=== PATIENT | male | born 1940 | race Caucasian/White ===

== ENCOUNTER 2018-04-10 12:22 | Inpatient (IN) ==
[2018-04-10] MEDS ORDERED: Acetaminophen 325 MG Tablet PO PRN (20:56)
[2018-04-10] MEDS ORDERED: Bisacodyl 10 MG Supp RECTAL PRN (20:56)
[2018-04-10] MEDS ORDERED: Enoxaparin Inj 30 MG/0.3 ML Syringe SQ SCH (21:00)
[2018-04-10] MEDS ORDERED: Vancomycin Consult Pharmacy OTHER PRN (21:02)
[2018-04-10] MEDS ORDERED: Dextrose 50% in Water 50 ML Vial IV.PUSH PRN (21:52)
[2018-04-10] MEDS ORDERED: Carvedilol 12.5 MG Tablet PO ONE (22:21)
[2018-04-10] MEDS: Piperacil/Tazo 3.375 GM Premix 50 ML IV.SIG SCH (23:10)
[2018-04-11] MEDS: Piperacil/Tazo 3.375 GM Premix 50 ML IV.SIG SCH ×3 (05:29→17:06)
[2018-04-11 07:37] LABS: Chloride 104 meq/L (98-107); Potassium 4.3 meq/L (3.5-5.1); Sodium 138 meq/L (136-145)
[2018-04-11 07:40] LABS: Calcium 8.8 mg/dL (8.5-10.1)
[2018-04-11 07:41] LABS: Albumin 3.1 g/dL (3.4-5.0); Anion Gap 8 meq/L (5-15); Blood Urea Nitrogen 20 mg/dL (7-18); Carbon Dioxide 26.1 meq/L (21.0-32.0); Glucose,Random 150 mg/dL (74-106)
[2018-04-11 07:44] LABS: Alanine Aminotransferase 23 U/L (12-78); Aspartate Aminotransferase 16 U/L (15-37); Glomerular Filtration Rate 73 mL/min (>89)
[2018-04-11 07:45] LABS: Total Protein 7.5 g/dL (6.4-8.2)
[2018-04-11 07:46] LABS: Baso % (Auto) 0.3 % (0.0-2.0); Eos # (Auto) 0.4 th/mm3 (0.0-0.4); Eos % (Auto) 5.5 % (0.0-4.0); Hematocrit 32.5 % (39.0-51.0); Hemoglobin 11.2 gm/dL (13.0-17.0); Lymph # (Auto) 1.4 th/mm3 (1.0-4.8); Lymph % (Auto) 21.8 % (9.0-44.0); Mean Corpuscular HGB Conc 34.5 % (32.0-36.0); Mean Corpuscular Hemoglobin 29.4 pg (27.0-34.0); Mean Corpuscular Volume 85.3 fL (80.0-100.0); Mean Platelet Volume 8.3 fL (7.0-11.0); Mono # (Auto) 0.6 th/mm3 (0.0-0.9); Mono % (Auto) 8.7 % (0.0-8.0); Neut # (Auto) 4.1 th/mm3 (1.8-7.7); Neut % (Auto) 63.7 % (16.0-70.0); Platelet Count 307 th/mm3 (150-450); Red Blood Count 3.81 mil/mm3 (4.50-5.90); Red Cell Distribution Width 13.7 % (11.6-17.2); White Blood Count 6.5 th/mm3 (4.0-11.0)
[2018-04-11 07:47] LABS: Alkaline Phosphatase 93 U/L (45-117)
[2018-04-11 07:52] LABS: INR 1.1 Ratio; Prothrombin Time 10.7 sec (9.8-11.6)
[2018-04-11] MEDS: Insulin NovoLOG Aspart Correctional Sugar Inj SQ SCH ×3 (08:14→17:03)
--- NOTE | 2018-04-11 08:16 | P.HP ---
History of Present Illness Primary Care Physician: Olayinka Perdomo MD Chief Complaint: Left foot edema History of Present Illness: 77-year-old male with known history of hypertension, hyper lipidemia, coronary disease, diabetes who presented the hospital for evaluation of left foot edema. Patient states that over the last few weeks he has had increased edema noted in the left lower extremity. He went to his prior medical doctor's office proxy 3 days ago and was started on oral antibiotics. Patient states that there might have been some mild improvement but it did not get any better so he went back to his primary medical doctor's office who referred him to the emergency department. Patient had workup done emergency department with laboratory studies which did not indicate any leukocytosis, however patient did have lactic acid elevation, C-reactive protein elevation. Because the patient had been started on outpatient oral antibiotics and his foot did not improve ER doctor recommended the patient be admitted for failed outpatient treatment. Patient denies any fever, chills, abdominal pain, nausea, vomiting, chest pain - Diagnosis (1) Cellulitis of left foot Inpatient Certification: I certify that the inpatient services were ordered in accordance with Medicare regulations governing the order. This includes certification that hospital inpatient services are reasonable and necessary and in the case of services not specified as inpatient-only under 42 CFR 419.22(n), that they are appropriately provided as inpatient services in accordance to with the 2-midnight benchmark under 43 CFR 412.3(e) Estimated Total Length of Stay (Days): 2 Plans for Post Hospital Care: Home Review of Systems All other systems reviewed negative except as stated in HPI Skin/Breast: Reports change in skin color, Reports redness PMFSH - History History Provided By: Patient - Medical History Medical History: Medical History (Last Reviewed 04/11/18 @ 08:33 by DADA Roa) CAD (coronary artery disease) Diabetes HTN (hypertension) High cholesterol - Surgical History Surgical History: Surgical History (Last Reviewed 04/11/18 @ 08:33 by DADA Roa) History of knee surgery Hx of CABG Hx of bariatric surgery - Family History Family History: Family History (Last Updated 04/11/18 @ 07:56 by DADA Roa) Mother History of diabetes mellitus - Tobacco History Second Hand Smoke Exposure: No Smoking Status: Former smoker - Alcohol History How Often Do You Have a Drink Containing Alcohol: Never - Substance Use History Substance History: No History of Abuse Medications and Allergies Active Medications: Active Medications Acetaminophen (Tylenol) 650 mg PO Q4H PRN PRN Reason: Temp > 100.4 Bisacodyl (Dulcolax Supp) 10 mg RECTAL DAILY PRN PRN Reason: SEVERE CONSITIPATION Dextrose (D50w Vial) 50 ml IV.PUSH UNSCH PRN PRN Reason: PER HYPOGLYCEMIA PROTOCOL Enoxaparin Sodium (Lovenox Inj) 30 mg SQ Q24H [facility] Last Admin: 04/10/18 23:10 Dose: 30 mg Glucagon (Glucagon Inj) 1 mg OTHER PRN PRN PRN Reason: for Hypoglycemia Protocol Piperacillin/Tazobactam/Dextrose (Zosyn 3.375 Gm Premix) 50 mls @ 100 mls/hr IV.SIG Q6H [facility] Last Infusion: 04/11/18 06:15 Dose: Infused Vancomycin HCl 1,250 mg/ (Sodium Chloride) 262.5 mls @ 262.5 mls/hr IV.SIG Q18H [facility] Insulin Aspart (Novolog Insulin Correctional Sugar Inj) 0 unit SQ ACHS [facility]; Protocol Last Admin: 04/11/18 08:14 Dose: 1 unit Miscellaneous Information ([facility] Ordered Lab Info) 0 each OTHER ONCE ONE Stop: 04/12/18 23:46 Ondansetron HCl (Zofran Inj) 4 mg IV.PUSH Q6H PRN PRN Reason: NAUSEA OR VOMITING Pharmacy Profile Note (Vancomycin Consult Pharmacy) 1 each OTHER UNSCH PRN PRN Reason: Pharmacy to dose Sennosides (Senokot) 17.2 mg PO Q12H PRN PRN Reason: Moderate Constipation Allergies Allergy/AdvReac Type Severity Reaction Status Date / Time No Known Allergies Allergy Unverified 04/10/18 12:44 Home Medications Medication Instructions Recorded Confirmed Type amitriptyline 150 mg PO DAILY 04/10/18 04/11/18 History carvedilol [Coreg] 12.5 mg PO BID 04/10/18 04/11/18 History cephalexin [Keflex] 500 mg PO BID 04/10/18 04/10/18 History doxycycline hyclate 100 mg PO BID 04/10/18 04/10/18 History ferrous sulfate 325 mg PO DAILY 04/10/18 04/11/18 History gabapentin 800 mg PO TID 04/10/18 04/11/18 History glipizide 10 mg PO BID 04/10/18 04/11/18 History lisinopril 10 mg PO BID 04/10/18 04/11/18 History metformin 1,000 mg PO BID 04/10/18 04/11/18 History metformin 500 mg PO AC LUNCH 04/10/18 04/11/18 History Exam Vital signs: Vital Signs 04/11/18 00:00 04/11/18 07:45 Temperature 97.6 F 97.4 F L Pulse Rate 65 67 Respiratory Rate 18 20 Blood Pressure 193/94 H 158/77 H Pulse Oximetry 96 95 Intake & Output 04/10/18 04/11/18 04/11/18 18:59 06:59 18:59 Intake Total 100 / 100 Balance 100 / 100 Weight 87.4 kg Intake: IV 100 / 100 Zosyn 3.375 GM Premix 50 ML @ 100 / 100 100 mls/hr IV.SIG Q6H [facility] Rx#: [id number] Other: # Voids 3 Weight On Admission 87.4 kg Narrative: GENERAL: Well-developed, well-nourished, in no acute distress. alert and orientated HEENT: Head is normocephalic without any lesions or masses noted. Facial features are symmetric. Eyes: Pupils equal round reactive to light. Extraocular muscles are intact. Conjunctivae were clear. Oropharyngeal: Pharynx without any erythema edema. Tongue is midline without deviation. Buccal mucosa is moist without any masses or lesions NECK: Supple without any masses. Trachea midline no deviation. No JVD, no bruits are appreciated CARDIAC: Regular rhythm, regular rate. S1/S2 are heard. 3/6 ejection murmur noted in the mitral area. No gallops or rubs. LUNGS: Clear to auscultation bilaterally. No wheeze, rhonchi or rales. No use of accessory muscles on inspiration or expiration. ABDOMEN: Soft, nontender. Nondistended. Bowel sounds heard in all 4 quadrants. No organomegaly or masses. Negative rebound, negative guarding EXTREMITIES: No edema, pulses are equal bilaterally. No cyanosis or clubbing NEUROLOGY: Mood and affect appear appropriate. Cranial nerves II through XII grossly intact. Muscle strength 5/5 in upper and lower extremities bilaterally. Deep tendon reflexes are 2+ in upper and lower extremities bilaterally. LEFT FOOT: Patient does have edema noted to the left foot. There is mild erythema noted from the ankle down. The left great toe does have obvious deformity of the nail with increased erythema noted around the great toe. There is no fluctuance noted. No signs of any weeping wounds. Results - Labs CBC & Chem 7: 04/11/18 07:00 04/11/18 07:00 Labs: Laboratory Results - last 24 hr 04/11/18 04/11/18 04/11/18 07:00 07:00 07:00 CBC w Diff Auto diff final WBC 6.5 RBC 3.81 L Hgb 11.2 L Hct 32.5 L MCV 85.3 MCH 29.4 MCHC 34.5 RDW 13.7 Plt Count 307 MPV 8.3 Neut % (Auto) 63.7 Lymph % (Auto) 21.8 [place] % (Auto) 8.7 H Eos % (Auto) 5.5 H Baso % (Auto) 0.3 Neut # (Auto) 4.1 Lymph # (Auto) 1.4 [place] # (Auto) 0.6 Eos # (Auto) 0.4 Baso # (Auto) 0.0 WBC Differential . Differential Comment . PT 10.7 INR 1.1 Sodium 138 Potassium 4.3 Chloride 104 Carbon Dioxide 26.1 Anion Gap 8 BUN 20 H Creatinine 1.00 Estimated GFR 73 L Random Glucose 150 H Calcium 8.8 Total Bilirubin 0.4 AST 16 ALT 23 Alkaline Phosphatase 93 Total Protein 7.5 Albumin 3.1 L Caprini VTE Risk Assessment Caprini VTE Risk Assessment: Moderate/High Risk (score >= 2) Caprini Risk Assessment Model: Point Value = 1 Point Value = 2 Point Value = 3 Point Value = 5 Age 41-60 Minor surgery BMI > 25 kg/m2 Swollen legs Varicose veins or History of unexplained or recurrent spontaneous Oral contraceptives or hormone replacement Sepsis (< 1 month) Serious lung disease, including pneumonia (< 1 month) Abnormal pulmonary function Acute myocardial infarction Congestive heart failure (< 1 month) History of inflammatory bowel disease Medical patient at bed rest Age 61-74 Arthroscopic surgery Major open surgery (> 45 min) Laparoscopic surgery (> 45 min) Malignancy Confined to bed (> 72 hours) Immobilizing plaster cast Central venous access Age >= 75 History of VTE Family history of VTE Factor V Leiden Prothrombin [id number] Lupus anticoagulant Anticardiolipin antibodies Elevated serum homocysteine Heparin-induced thrombocytopenia Other congenital or acquired thrombophilia Stroke (< 1 month) Elective arthroplasty Hip, pelvis, or leg fracture Acute spinal cord injury (< 1 month) Prophylaxis Regimen: Total Risk Factor Score Risk Level Prophylaxis Regimen 0-1 Low Early ambulation 2 Moderate Order ONE of the following: *Sequential Compression Device (SCD) *Heparin 5000 units SQ BID 3-4 Higher Order ONE of the following medications: *Heparin 5000 units SQ TID *Enoxaparin/Lovenox 40 mg SQ daily (WT < 150 kg, CrCl > 30 mL/min) *Enoxaparin/Lovenox 30 mg SQ daily (WT < 150 kg, CrCl > 10-29 mL/min) *Enoxaparin/Lovenox 30 mg SQ BID (WT < 150 kg, CrCl > 30 mL/min) AND/OR *Sequential Compression Device (SCD) 5 or more Highest Order ONE of the following medications: *Heparin 5000 units SQ TID (Preferred with Epidurals) *Enoxaparin/Lovenox 40 mg SQ daily (WT < 150 kg, CrCl > 30 mL/min) *Enoxaparin/Lovenox 30 mg SQ daily (WT < 150 kg, CrCl > 10-29 mL/min) *Enoxaparin/Lovenox 30 mg SQ BID (WT < 150 kg, CrCl > 30 mL/min) AND *Sequential Compression Device (SCD) Assessment and Plan - Assessment (1) Cellulitis of left foot Code(s): L03.116 - Cellulitis of left lower limb Status: Acute - Plan Left foot cellulitis -Patient failed outpatient management with oral antibiotics -Lower extremity venous Doppler did not indicate any embolic event -X-ray of the foot indicated probable early hypertrophic foot with peripheral vascular calcification -Elevated C-reactive protein, sed rate was normal -MRI of the left foot did not indicate any osteomyelitis or infection. Did indicate Charcot's foot as well as dislocation -Podiatry evaluated the patient and recommending nonweightbearing for at least 3 months. Indicated the patient should have a fracture boot, physical therapy evaluation, outpatient follow-up. -Case management consulted to arrange for walker, wheelchair, fracture boot prior to discharge Diabetes -Diabetic diet -Accu-Cheks with sliding scale insulin Hypertension, hyper lipidemia, coronary disease -Continue home medications DVT prevention -Subcutaneous Lovenox Discharge Planning: Discharge home in stable condition Activity: Ad charlene. Diet: Diabetic diet Medication per medication reconciliation Follow-up with primary medical doctor in 1 week
[2018-04-11] MEDS ORDERED: Ferrous Sulfate 325 MG Tablet PO SCH (10:00)
[2018-04-11] MEDS ORDERED: Lisinopril 10 MG Tablet PO SCH (10:00)
[2018-04-11] MEDS ORDERED: Carvedilol 12.5 MG Tablet PO SCH (10:00)
[2018-04-11] MEDS ORDERED: Gadobutrol PF 10 MMOL/10 ML Vial (for RAD) IV.SIG ONE (10:46)
--- NOTE | 2018-04-11 11:26 | MR ---
EXAM DATE: 04/11/2018 11:11 AM EDT AGE/SEX: 77 years / Male INDICATIONS: Osteomyelitis. Pain and swelling of left anterior mid foot. No specific wound or inj ury. CLINICAL DATA: This is the patient's initial encounter. Patient reports that signs and symptoms have been present for 1 day and indicates a pain score of 0/10. MEDICAL/SURGICAL HISTORY: Hypertension. Diabetes mellitus type II. CABG. Gastric bypass. COMPARISON: No prior exams available for comparison. TECHNIQUE: Multiplanar, multisequence MRI examination was performed without contrast and after th e intravenous administration of 9 ml Gadavist (gadobutrol) single exam dose. FINDINGS: Bones: There is very impressive bony edema throughout the midfoot particularly in the cuboid bone and the cuneiform bones. There is been a dislocation involving the articulation of the medial cuneiform and the navicular bone and both the second and third cuneiform bones are inferiorly displaced compare d to the metatarsal bases. The joint space between the medial and intermediate cuneiform bones are ir regular. Joint Spaces: Marked disruption throughout the Lisfranc joints Tendons: The flexor tendons are intact. Soft Tissues: Diffuse soft tissue edema. Other: The plantar fascia is intact. There are some areas of nonenhancement within the plantar muscul ature Post Contrast: There is marked decreased enhancement involving both the intermediate and lateral cune iform bones. There are some adjacent serpiginous area of nonenhancement, possible abscess in the plan tar musculature concerning for an abscess just distal to the second metatarsal base CONCLUSION: 1. Significant edema and inflammation in the midfoot consistent Lisfranc dislocation and Charcot roberto nt. There is no enhancement of both the intermediate and lateral cuneiform bones as well as some flui d just distal to that within the plantar musculature. Electronically signed by: Bismark Ramirez MD 04/11/2018 11:25 AM EDT
[2018-04-11] MEDS ORDERED: Vancomycin Inj 1,250 MG in Sodium Chlor 0.9% Inj 250 ML IV.SIG SCH (12:00)
[2018-04-11] MEDS: Gabapentin 400 MG Capsule PO SCH ×2 (12:17→17:03)
--- NOTE | 2018-04-11 13:56 | P.CONPOD ---
History of Present Illness Service: podiatry Consult date: 04/11/18 Reason for Consult: left foot swelling, redness, possible infection Primary Care Provider: Olayinka Perdomo MD Chief Complaint: Left foot edema History of Present Illness: Patient relates 3 weeks history of increased redness and swelling to left foot. He did have a hallux nail injury and the nail came off, but has not had any drainage from that area. 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 He denies injury. Review of Systems All other systems reviewed negative except as stated in HPI PMFSH - History History Provided By: Patient - Medical History Medical History: Medical History (Last Reviewed 04/11/18 @ 11:40 by Harmeet Oliveira) CAD (coronary artery disease) Diabetes HTN (hypertension) High cholesterol - Surgical History Surgical History: Surgical History (Last Reviewed 04/11/18 @ 11:40 by Harmeet Oliveira) History of knee surgery Hx of CABG Hx of bariatric surgery - Family History Family History: Family History (Last Updated 04/11/18 @ 07:56 by DADA Roa) Mother History of diabetes mellitus - Tobacco History Second Hand Smoke Exposure: No Smoking Status: Former smoker - Alcohol History How Often Do You Have a Drink Containing Alcohol: Never - Substance Use History Substance History: No History of Abuse Medications and Allergies Active Medications: Active Medications Acetaminophen (Tylenol) 650 mg PO Q4H PRN PRN Reason: Temp > 100.4 Amitriptyline HCl (Elavil) 150 mg PO DAILY [facility] Last Admin: 04/11/18 10:15 Dose: 150 mg Bisacodyl (Dulcolax Supp) 10 mg RECTAL DAILY PRN PRN Reason: SEVERE CONSITIPATION Carvedilol (Coreg) 12.5 mg PO BID [facility] Last Admin: 04/11/18 10:14 Dose: 12.5 mg Dextrose (D50w Vial) 50 ml IV.PUSH UNSCH PRN PRN Reason: PER HYPOGLYCEMIA PROTOCOL Enoxaparin Sodium (Lovenox Inj) 30 mg SQ Q24H [facility] Last Admin: 04/10/18 23:10 Dose: 30 mg Ferrous Sulfate (Ferosul) 325 mg PO DAILY [facility] Last Admin: 04/11/18 10:14 Dose: 325 mg Gabapentin (Neurontin) 800 mg PO TID [facility] Last Admin: 04/11/18 12:17 Dose: 800 mg Glucagon (Glucagon Inj) 1 mg OTHER PRN PRN PRN Reason: for Hypoglycemia Protocol Piperacillin/Tazobactam/Dextrose (Zosyn 3.375 Gm Premix) 50 mls @ 100 mls/hr IV.SIG Q6H [facility] Last Infusion: 04/11/18 12:16 Dose: Infused Vancomycin HCl 1,250 mg/ (Sodium Chloride) 262.5 mls @ 262.5 mls/hr IV.SIG Q18H [facility] Last Infusion: 04/11/18 13:29 Dose: Infused Insulin Aspart (Novolog Insulin Correctional Sugar Inj) 0 unit SQ ACHS [facility]; Protocol Last Admin: 04/11/18 11:45 Dose: 1 unit Lisinopril (Prinivil) 10 mg PO BID [facility] Last Admin: 04/11/18 10:14 Dose: 10 mg Miscellaneous Information ([facility] Ordered Lab Info) 0 each OTHER ONCE ONE Stop: 04/12/18 23:46 Ondansetron HCl (Zofran Inj) 4 mg IV.PUSH Q6H PRN PRN Reason: NAUSEA OR VOMITING Pharmacy Profile Note (Vancomycin Consult Pharmacy) 1 each OTHER UNSCH PRN PRN Reason: Pharmacy to dose Sennosides (Senokot) 17.2 mg PO Q12H PRN PRN Reason: Moderate Constipation Allergies Allergy/AdvReac Type Severity Reaction Status Date / Time No Known Allergies Allergy Unverified 04/10/18 12:44 Home Medications Medication Instructions Recorded Confirmed Type amitriptyline 150 mg PO DAILY 04/10/18 04/11/18 History carvedilol [Coreg] 12.5 mg PO BID 04/10/18 04/11/18 History cephalexin [Keflex] 500 mg PO BID 04/10/18 04/10/18 History doxycycline hyclate 100 mg PO BID 04/10/18 04/10/18 History ferrous sulfate 325 mg PO DAILY 04/10/18 04/11/18 History gabapentin 800 mg PO TID 04/10/18 04/11/18 History glipizide 10 mg PO BID 04/10/18 04/11/18 History lisinopril 10 mg PO BID 04/10/18 04/11/18 History metformin 1,000 mg PO BID 04/10/18 04/11/18 History metformin 500 mg PO AC LUNCH 04/10/18 04/11/18 History Physical Exam Vital signs: Vital Signs 04/11/18 00:00 04/11/18 07:45 04/11/18 12:13 Temperature 97.6 F 97.4 F L 97.6 F Pulse Rate 65 67 68 Respiratory Rate 18 20 20 Blood Pressure 193/94 H 158/77 H 170/80 H Pulse Oximetry 96 95 95 Intake & Output 04/10/18 04/11/18 04/11/18 18:59 06:59 18:59 Intake Total 100 / 100 312.5 / 312.5 Balance 100 / 100 312.5 / 312.5 Weight 87.4 kg Intake: IV 100 / 100 312.5 / 312.5 Zosyn 3.375 GM Premix 50 ML @ 100 / 100 50 / 50 100 mls/hr IV.SIG Q6H [facility] Rx#: [id number] Vancomycin Inj 1,250 MG In NS 262.5 / 262.5 Inj 250 ML @ 262.5 mls/hr IV. SIG Q18H [facility] Rx#:[id number] Other: # Voids 3 Weight On Admission 87.4 kg Narrative: Left foot with collapsed medial longitudinal arch, erythema and edema to midfoot level. Hallux nail is absent, but no sign of infection present there. No open wounds to left foot, and no wound history per patient. Patient relates diffuse pain left foot. Palpable pedal pulses. Diminished sensation Results - Labs CBC & Chem 7: 04/11/18 07:00 04/11/18 07:00 Laboratory Results - last 24 hr 04/11/18 04/11/18 04/11/18 07:00 07:00 07:00 CBC w Diff Auto diff final WBC 6.5 RBC 3.81 L Hgb 11.2 L Hct 32.5 L MCV 85.3 MCH 29.4 MCHC 34.5 RDW 13.7 Plt Count 307 MPV 8.3 Neut % (Auto) 63.7 Lymph % (Auto) 21.8 [place] % (Auto) 8.7 H Eos % (Auto) 5.5 H Baso % (Auto) 0.3 Neut # (Auto) 4.1 Lymph # (Auto) 1.4 [place] # (Auto) 0.6 Eos # (Auto) 0.4 Baso # (Auto) 0.0 WBC Differential . Differential Comment . ESR PT 10.7 INR 1.1 Sodium 138 Potassium 4.3 Chloride 104 Carbon Dioxide 26.1 Anion Gap 8 BUN 20 H Creatinine 1.00 Estimated GFR 73 L POC Glucose Random Glucose 150 H Calcium 8.8 Total Bilirubin 0.4 AST 16 ALT 23 Alkaline Phosphatase 93 C-Reactive Protein Total Protein 7.5 Albumin 3.1 L 04/11/18 04/11/18 04/11/18 07:00 07:00 08:04 CBC w Diff WBC RBC Hgb Hct MCV MCH MCHC RDW Plt Count MPV Neut % (Auto) Lymph % (Auto) [place] % (Auto) Eos % (Auto) Baso % (Auto) Neut # (Auto) Lymph # (Auto) [place] # (Auto) Eos # (Auto) Baso # (Auto) WBC Differential Differential Comment ESR 78 H PT INR Sodium Potassium Chloride Carbon Dioxide Anion Gap BUN Creatinine Estimated GFR POC Glucose 176 H Random Glucose Calcium Total Bilirubin AST ALT Alkaline Phosphatase C-Reactive Protein 2.66 H Total Protein Albumin 04/11/18 11:34 CBC w Diff WBC RBC Hgb Hct MCV MCH MCHC RDW Plt Count MPV Neut % (Auto) Lymph % (Auto) [place] % (Auto) Eos % (Auto) Baso % (Auto) Neut # (Auto) Lymph # (Auto) [place] # (Auto) Eos # (Auto) Baso # (Auto) WBC Differential Differential Comment ESR PT INR Sodium Potassium Chloride Carbon Dioxide Anion Gap BUN Creatinine Estimated GFR POC Glucose 174 H Random Glucose Calcium Total Bilirubin AST ALT Alkaline Phosphatase C-Reactive Protein Total Protein Albumin - Imaging Impressions Foot MRI 04/11/18 00:00 CONCLUSION: 1. Significant edema and inflammation in the midfoot consistent Lisfranc dislocation and Charcot joint. There is no enhancement of both the intermediate and lateral cuneiform bones as well as some fluid just distal to that within the plantar musculature. Assessment and Plan - Assessment (1) Charcot foot due to diabetes mellitus Code(s): E11.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 Status: Acute Plan: Discussed condition with patient and strict nonweightbearing required until radiographic consolidation takes place. Discussed residual deformity, and that noncompliance leads to high risk of wounds, infection, and very high risk of amputation. Strict Nonweightbearing left lower extremity Fracture boot to protect foot Follow up in clinic 2 weeks for serial Xray, and eventual protected weightbearing when fractures show healing
[2018-04-12] MEDS ORDERED: Pharmacy Ordered Lab Info OTHER ONE (23:45)
== END 2018-04-11 21:39 | disposition home or self-care (01) ==
LOC: PHEDDLT 12:22 → PH3 22:01
PROVIDERS: ADMIT Hospitalist; ATTEND Hospitalist

== ENCOUNTER 2018-07-24 13:11 | Inpatient (IN) ==
[2018-07-24] MEDS ORDERED: Vancomycin Inj 1,000 MG in Sodium Chlor 0.9% Inj 250 ML IV.SIG STA (13:35)
[2018-07-24] MEDS ORDERED: Piperacil/Tazo 4.5 GM Premix 4.5 GM/100 ML BAG IV.SIG STA (13:35)
[2018-07-24] MEDS ORDERED: Sod Chloride 0.9% Inj 1,000 ML IV.SIG SCH ×3 (13:45→17:15)
[2018-07-24 13:58] LABS: Baso % (Auto) 0.1 % (0.0-2.0); Eos # (Auto) 0.1 th/mm3 (0.0-0.4); Eos % (Auto) 0.5 % (0.0-4.0); Hematocrit 30.2 % (39.0-51.0); Hemoglobin 10.1 gm/dL (13.0-17.0); Lymph # (Auto) 0.6 th/mm3 (1.0-4.8); Lymph % (Auto) 3.1 % (9.0-44.0); Mean Corpuscular HGB Conc 33.6 % (32.0-36.0); Mean Corpuscular Hemoglobin 28.1 pg (27.0-34.0); Mean Corpuscular Volume 83.7 fL (80.0-100.0); Mean Platelet Volume 8.1 fL (7.0-11.0); Mono # (Auto) 1.8 th/mm3 (0.0-0.9); Mono % (Auto) 8.8 % (0.0-8.0); Neut # (Auto) 17.8 th/mm3 (1.8-7.7); Neut % (Auto) 87.5 % (16.0-70.0); Platelet Count 476 th/mm3 (150-450); Red Cell Distribution Width 16.3 % (11.6-17.2); White Blood Count 20.4 th/mm3 (4.0-11.0)
[2018-07-24 14:13] LABS: Activated Partial Thrombo Time 37.3 sec (23.4-31.7); Albumin 2.1 g/dL (3.4-5.0); Anion Gap 12 meq/L (5-15); Blood Urea Nitrogen 55 mg/dL (7-18); Calcium 8.8 mg/dL (8.5-10.1); Carbon Dioxide 19.8 meq/L (21.0-32.0); Chloride 102 meq/L (98-107); Glucose,Random 162 mg/dL (74-106); INR 1.2 Ratio; Magnesium 2.2 mg/dL (1.5-2.5); Potassium 4.9 meq/L (3.5-5.1); Prothrombin Time 12.4 sec (9.8-11.6); Sodium 134 meq/L (136-145)
[2018-07-24 14:14] LABS: Aspartate Aminotransferase 125 U/L (15-37)
--- NOTE | 2018-07-24 14:14 | ED ---
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 Per 's report patient has had increased pain for at least the last week. states he it has had increased foul odor and drainage. Patient had a wound VAC placed on 07/16. He has been followed by Dr. Raza. Patient has been treated for this foot wound for several months. He has a history of Charcot. He denies any fevers, chills, nausea, vomiting, chest pain, shortness of breath. Past medical history significant for type 2 diabetes, hypertension, coronary artery disease status post CABG. Onset (ago): day(s) Location: lower extremity Radiation: extremity Severity: severe Severity scale (1-10): 9 Quality: aching Pain Consistency: constant Relieving factors: none Exacerbating factors: none Associated symptoms: Reports denies other symptoms Treatments prior to arrival: Reports other (naproxen last night) Related Data Home Medications Medication Instructions Recorded Confirmed amitriptyline 150 mg PO DAILY 04/10/18 07/24/18 carvedilol [Coreg] 12.5 mg PO BID 04/10/18 07/24/18 ferrous sulfate 325 mg PO DAILY 04/10/18 07/24/18 gabapentin 800 mg PO TID 04/10/18 07/24/18 glipizide 10 mg PO BID 04/10/18 07/24/18 lisinopril 10 mg PO BID 04/10/18 07/24/18 metformin 1,000 mg PO BID 04/10/18 07/24/18 metformin 500 mg PO AC LUNCH 04/10/18 07/24/18 simvastatin [Zocor] 40 mg PO QPM 07/24/18 07/24/18 Allergies Allergy/AdvReac Type Severity Reaction Status Date / Time No Known Allergies Allergy Unverified 07/24/18 13:22 Review of Systems ROS: all other systems reviewed are negative [facility] Medical History Medical History CAD (coronary artery disease) (Acute) Diabetes (Acute) HTN (hypertension) (Acute) High cholesterol (Acute) Surgical History Surgical History History of knee surgery (Acute) Hx of CABG (Acute) Hx of bariatric surgery (Acute) Family History Family History Mother History of diabetes mellitus Social History Social History Substance History: No History of Abuse Second Hand Smoke Exposure: No Smoking Status: Former smoker How Often Do You Have a Drink Containing Alcohol: Never Recent Travel in [place] within the Last 8 Weeks: No Recent Out of Country Travel within the Last 8 Weeks: No Immunization History Tetanus Immunization: Unsure Exam Narrative Exam Narrative: GENERAL: Well-developed, well-nourished, alert elderly male. Presenting in no acute distress. SKIN: Focused skin assessment warm/dry. Wound VAC to left foot, there is a 4 x 2 cm wound that is approximately 3 cm deep to the plantar aspect of the left foot. There is a second 4 x 2 cm wound to the lateral aspect of the left foot, fluctuant, necrotic. Foot is erythematous with erythema extending up to the mid calf. HEAD: Atraumatic. Normocephalic. EYES: Pupils equal and round. No scleral icterus. No injection or drainage. ENT: No nasal bleeding or discharge. Mucous membranes pink and moist. NECK: Trachea midline. No JVD. CARDIOVASCULAR: Regular rate and rhythm. No murmur appreciated. RESPIRATORY: No accessory muscle use. Clear to auscultation. Breath sounds equal bilaterally. GASTROINTESTINAL: Abdomen soft, non-tender, nondistended. Hepatic and splenic margins not palpable. MUSCULOSKELETAL: No obvious deformities. No clubbing. No cyanosis. No edema. NEUROLOGICAL: Awake and alert. No obvious cranial nerve deficits. Motor grossly within normal limits. Normal speech. PSYCHIATRIC: Appropriate mood and affect; insight and judgment normal. Procedures Central Line Placement Left SC: Time Out Performed: Yes Patient Placed on Monitor/Pulse Ox: Yes MD Prep: mask, gown and gloves Central Line Prep: Chlorhexidine scrub and sterile drapes applied Local anesthesia used: lidocaine 1% Ultrasound Used for Placement: No Central Line Lumen Inserted: triple Post Procedure: sutured in place, good blood return, all ports aspirated, flushed, capped and sterile dressing applied Post Procedure X-Ray: tip of catheter in good position and no pneumothorax seen Patient Tolerated Procedure: well Complications: none Course Initial Documented Vital Signs Temperature 97.6 F 07/24/18 13:20 Pulse Rate 85 07/24/18 13:20 Respiratory Rate 20 07/24/18 13:20 Blood Pressure 68/44 L 07/24/18 13:20 Pulse Oximetry 89 L 07/24/18 13:20 Last Documented Vital Signs Temperature 98.2 F 07/26/18 09:00 Pulse Rate 71 07/26/18 10:00 Respiratory Rate 44 H 07/26/18 10:00 Blood Pressure 146/80 H 07/26/18 09:12 Pulse Oximetry 98 07/26/18 10:00 Critical Care Time Critical Care Time: Yes Total Critical Care Time: 60 Attestation: Aggregate critical care time was 45 minutes. Time to perform other separately billable procedures was not included in the critical care time. My time did not include minutes spent treating any other patients simultaneously or on activities that did not directly contribute to the patient's treatment. The services I provided to this patient were to treat and/or prevent clinically significant deterioration I provided critical care services requiring my management, as noted below: Chart data review, documentation time, medication orders and management, vital sign assessments/reviewing monitor data, ordering and reviewing lab tests, ordering and interpreting/reviewing x-rays and diagnostic studies, care of the patient and discussion of the patient with the admitting physicians. Medical Decision Making JAN Attestation JAN supervised visit: Yes Attestation: I, Dr. Davis, have reviewed the advance practice practitioner' s documentation and am in agreement, met with the patient face to face, made the diagnosis, and the medical decision making was done by me. The patient was initially evaluated by [crystal newton]. Please see their complete history and physical. *My assessment and Findings: The patient presents with left lower foot infection with wound VAC in place, patient was noted to be hypotensive repeatedly, thereby requiring a central access to provide the patient with multiple antibiotics as well as IV fluids and pressors During the course of the patient's emergency department visit, the patient's history, examination, and differential diagnosis were reviewed with the patient. The patient was placed on a personnel monitor with oximetry and frequent blood pressure monitoring. The patient had [peripheral] IV access obtained and blood work sent for analysis. The patient's laboratory studies were reviewed and remarkable for [20,000 white count with a left shift of 88% neutrophilia, minimal anemia of 10/30.-] Coagulation profile is within normal limits. Electrolytes abnormalities noted, particularly 183 glucose BUN of 55 no creatinine reported yet however bicarb 19.8 remainder of LFTs troponin CRP all pending as of 1419 Patient case discussed personally with manufacturing operator VERENICE Narrative Medical decision making narrative: Presented to the emerge department for evaluation of worsening cellulitis and abscess to the left foot. On arrival patient was hypotensive, O2 sat 89% on room air. Sepsis workup initiated, patient was given 2 L of IV fluids, he was started on antibiotics empirically, wound culture was obtained. Please see procedure report for central line placement from my attending physician. Labs reviewed, CMP: Bun/Cr 55/2.08 elevated when compared to prior in April 2018. K+ 3.4, CRP 47, sed rate >140, AST/ALT 125/156, Lactic 2.6. Wound and blood cultures pending. CXR shows Left parenchymal changes that could be inflammatory. Blood pressure after 2 liters of IVF continues to trend down. Most recent BP 83/ 49, pt will be started on Levophed at this time. This was discussed with my attending physician prior to ordering. Discussed with Dr. Rabago, she accepted admission, admit orders placed. Discussed clinical findings and plan of care with patient and his family at bedside. Questions answered. CT scan of the foot with extensive erosive changes throughout. 4.3cm abscess. Medical Screen Exam Complete: Yes Emergency Medical Condition: Yes Differential Diagnosis Differential Diagnosis: Abscess or cellulitis versus abscess versus metabolic abnormality versus other Medical Records Medical records reviewed: Yes I reviewed the patient's medical records. Lab Data Result diagrams: 07/26/18 14:53 07/26/18 03:23 Lab Results 07/24/18 07/24/18 07/24/18 Range/Units 13:40 13:40 13:40 WBC 20.4 H (4.0-11.0) th/mm3 RBC 3.60 L (4.50-5.90) mil/mm3 Hgb 10.1 L (13.0-17.0) gm/dL Hct 30.2 L (39.0-51.0) % MCV 83.7 (80.0-100.0) fL MCH 28.1 (27.0-34.0) pg MCHC 33.6 (32.0-36.0) % RDW 16.3 (11.6-17.2) % Plt Count 476 H (150-450) th/mm3 MPV 8.1 (7.0-11.0) fL Prelim Diff (Auto) Neut % (Auto) 87.5 H (16.0-70.0) % Lymph % (Auto) 3.1 L (9.0-44.0) % Mckenzie % (Auto) 8.8 H (0.0-8.0) % Eos % (Auto) 0.5 (0.0-4.0) % Baso % (Auto) 0.1 (0.0-2.0) % Neut # (Auto) 17.8 H (1.8-7.7) th/mm3 Lymph # (Auto) 0.6 L (1.0-4.8) th/mm3 Mckenzie # (Auto) 1.8 H (0.0-0.9) th/mm3 Eos # (Auto) 0.1 (0.0-0.4) th/mm3 Baso # (Auto) 0.0 (0.0-0.2) th/mm3 WBC Differential . Seg Neuts % (Manual) (16-70) % Band Neuts % (Manual) (0-6) % Lymphocytes % (Manual) (9-44) % Monocytes % (Manual) (0-8) % Eosinophils % (Manual) (0-4) % Metamyelocytes % (Man) (0-1) % Myelocytes % (Man) (0-0) % Abs Neuts (Manual) (1.8-7.7) th/mm3 Differential Comment Auto diff final Platelet Estimate (Normal) Platelet Morphology (Normal) RBC Morphology (Normal) ESR (0-20) mm/hr PT 12.4 H (9.8-11.6) sec INR 1.2 Ratio APTT 37.3 H (23.4-31.7) sec Sodium 134 L (136-145) meq/L Potassium 4.9 (3.5-5.1) meq/L Chloride 102 (98-107) meq/L Carbon Dioxide 19.8 L (21.0-32.0) meq/L Anion Gap 12 (5-15) meq/L BUN 55 H (7-18) mg/dL Creatinine 2.08 H (0.60-1.30) mg/dL Estimated GFR (>89) mL/min POC Glucose (68-110) mg/dl Random Glucose 162 H (74-106) mg/dL Hemoglobin A1c (4.3-6.0) % Lactic Acid (0.4-2.0) mmol/L Calcium 8.8 (8.5-10.1) mg/dL Phosphorus (2.5-4.9) mg/dL Magnesium 2.2 (1.5-2.5) mg/dL Total Bilirubin 0.6 (0.2-1.0) mg/dL AST 125 H (15-37) U/L ALT 156 H (12-78) U/L Alkaline Phosphatase 274 H (45-117) U/L Total Creatine Kinase 123 (39-308) U/L CK-MB (CK-2) 1.8 (0.5-3.6) ng/mL Troponin I Less than 0.02 L (0.02-0.05) ng/mL C-Reactive Protein 47.00 H (0.00-0.30) mg/dL Total Protein 7.5 (6.4-8.2) g/dL Albumin 2.1 L (3.4-5.0) g/dL Urine Color (Yellw/Straw) Urine Clarity (Clear) Urine pH (5.0-8.5) Ur Specific [place] (1.002-1.035) Urine Protein (Neg-Trace) mg/dL Urine Glucose (UA) (Negative) mg/dL Urine Ketones (Negative) mg/dL Urine Occult Blood (Negative) Urine Nitrate (Negative) Urine Bilirubin (Negative) Urine Urobilinogen (Less than 2) mg/dL Ur Leukocyte Esterase (Negative) Urine RBC (0-3) /hpf Urine WBC (0-5) /hpf Ur Squamous Epith Cells (0-5) /hpf Amorphous Sediment (None) /hpf Urine Bacteria (None) /hpf Hyaline Casts (0-3) /lpf Urine Mucus (Occasional) /lpf Micro UA Comment Ur Microscopic Review Urine Culture Comments Nasal Screen MRSA (PCR) (Negative) Vancomycin Trough (5.0-10.0) mcg/mL Blood Type Antibody Screen MTS Gel Crossmatch 07/24/18 07/24/18 07/24/18 Range/Units 13:40 13:40 13:40 WBC (4.0-11.0) th/mm3 RBC (4.50-5.90) mil/mm3 Hgb (13.0-17.0) gm/dL Hct (39.0-51.0) % MCV (80.0-100.0) fL MCH (27.0-34.0) pg MCHC (32.0-36.0) % RDW (11.6-17.2) % Plt Count (150-450) th/mm3 MPV (7.0-11.0) fL Prelim Diff (Auto) Neut % (Auto) (16.0-70.0) % Lymph % (Auto) (9.0-44.0) % Mckenzie % (Auto) (0.0-8.0) % Eos % (Auto) (0.0-4.0) % Baso % (Auto) (0.0-2.0) % Neut # (Auto) (1.8-7.7) th/mm3 Lymph # (Auto) (1.0-4.8) th/mm3 Mckenzie # (Auto) (0.0-0.9) th/mm3 Eos # (Auto) (0.0-0.4) th/mm3 Baso # (Auto) (0.0-0.2) th/mm3 WBC Differential Seg Neuts % (Manual) (16-70) % Band Neuts % (Manual) (0-6) % Lymphocytes % (Manual) (9-44) % Monocytes % (Manual) (0-8) % Eosinophils % (Manual) (0-4) % Metamyelocytes % (Man) (0-1) % Myelocytes % (Man) (0-0) % Abs Neuts (Manual) (1.8-7.7) th/mm3 Differential Comment Platelet Estimate (Normal) Platelet Morphology (Normal) RBC Morphology (Normal) ESR Greater than 140 H (0-20) mm/hr PT (9.8-11.6) sec INR Ratio APTT (23.4-31.7) sec Sodium (136-145) meq/L Potassium (3.5-5.1) meq/L Chloride (98-107) meq/L Carbon Dioxide (21.0-32.0) meq/L Anion Gap (5-15) meq/L BUN (7-18) mg/dL Creatinine (0.60-1.30) mg/dL Estimated GFR (>89) mL/min POC Glucose (68-110) mg/dl Random Glucose (74-106) mg/dL Hemoglobin A1c 7.9 H (4.3-6.0) % Lactic Acid 2.6 H (0.4-2.0) mmol/L Calcium (8.5-10.1) mg/dL Phosphorus (2.5-4.9) mg/dL Magnesium (1.5-2.5) mg/dL Total Bilirubin (0.2-1.0) mg/dL AST (15-37) U/L ALT (12-78) U/L Alkaline Phosphatase (45-117) U/L Total Creatine Kinase (39-308) U/L CK-MB (CK-2) (0.5-3.6) ng/mL Troponin I (0.02-0.05) ng/mL C-Reactive Protein (0.00-0.30) mg/dL Total Protein (6.4-8.2) g/dL Albumin (3.4-5.0) g/dL Urine Color (Yellw/Straw) Urine Clarity (Clear) Urine pH (5.0-8.5) Ur Specific [place] (1.002-1.035) Urine Protein (Neg-Trace) mg/dL Urine Glucose (UA) (Negative) mg/dL Urine Ketones (Negative) mg/dL Urine Occult Blood (Negative) Urine Nitrate (Negative) Urine Bilirubin (Negative) Urine Urobilinogen (Less than 2) mg/dL Ur Leukocyte Esterase (Negative) Urine RBC (0-3) /hpf Urine WBC (0-5) /hpf Ur Squamous Epith Cells (0-5) /hpf Amorphous Sediment (None) /hpf Urine Bacteria (None) /hpf Hyaline Casts (0-3) /lpf Urine Mucus (Occasional) /lpf Micro UA Comment Ur Microscopic Review Urine Culture Comments Nasal Screen MRSA (PCR) (Negative) Vancomycin Trough (5.0-10.0) mcg/mL Blood Type Antibody Screen MTS Gel Crossmatch 07/24/18 07/24/18 07/24/18 Range/Units 14:05 14:50 18:46 WBC (4.0-11.0) th/mm3 RBC (4.50-5.90) mil/mm3 Hgb (13.0-17.0) gm/dL Hct (39.0-51.0) % MCV (80.0-100.0) fL MCH (27.0-34.0) pg MCHC (32.0-36.0) % RDW (11.6-17.2) % Plt Count (150-450) th/mm3 MPV (7.0-11.0) fL Prelim Diff (Auto) Neut % (Auto) (16.0-70.0) % Lymph % (Auto) (9.0-44.0) % Mckenzie % (Auto) (0.0-8.0) % Eos % (Auto) (0.0-4.0) % Baso % (Auto) (0.0-2.0) % Neut # (Auto) (1.8-7.7) th/mm3 Lymph # (Auto) (1.0-4.8) th/mm3 Mckenzie # (Auto) (0.0-0.9) th/mm3 Eos # (Auto) (0.0-0.4) th/mm3 Baso # (Auto) (0.0-0.2) th/mm3 WBC Differential Seg Neuts % (Manual) (16-70) % Band Neuts % (Manual) (0-6) % Lymphocytes % (Manual) (9-44) % Monocytes % (Manual) (0-8) % Eosinophils % (Manual) (0-4) % Metamyelocytes % (Man) (0-1) % Myelocytes % (Man) (0-0) % Abs Neuts (Manual) (1.8-7.7) th/mm3 Differential Comment Platelet Estimate (Normal) Platelet Morphology (Normal) RBC Morphology (Normal) ESR (0-20) mm/hr PT (9.8-11.6) sec INR Ratio APTT (23.4-31.7) sec Sodium (136-145) meq/L Potassium (3.5-5.1) meq/L Chloride (98-107) meq/L Carbon Dioxide (21.0-32.0) meq/L Anion Gap (5-15) meq/L BUN (7-18) mg/dL Creatinine (0.60-1.30) mg/dL Estimated GFR (>89) mL/min POC Glucose 183 H (68-110) mg/dl Random Glucose (74-106) mg/dL Hemoglobin A1c (4.3-6.0) % Lactic Acid 0.9 (0.4-2.0) mmol/L Calcium (8.5-10.1) mg/dL Phosphorus (2.5-4.9) mg/dL Magnesium (1.5-2.5) mg/dL Total Bilirubin (0.2-1.0) mg/dL AST (15-37) U/L ALT (12-78) U/L Alkaline Phosphatase (45-117) U/L Total Creatine Kinase (39-308) U/L CK-MB (CK-2) (0.5-3.6) ng/mL Troponin I (0.02-0.05) ng/mL C-Reactive Protein (0.00-0.30) mg/dL Total Protein (6.4-8.2) g/dL Albumin (3.4-5.0) g/dL Urine Color Leti (Yellw/Straw) Urine Clarity Cloudy H (Clear) Urine pH 5.0 (5.0-8.5) Ur Specific [place] 1.020 (1.002-1.035) Urine Protein 30 H (Neg-Trace) mg/dL Urine Glucose (UA) Negative (Negative) mg/dL Urine Ketones Negative (Negative) mg/dL Urine Occult Blood Negative (Negative) Urine Nitrate Negative (Negative) Urine Bilirubin Negative (Negative) Urine Urobilinogen Less than 2 (Less than 2) mg/dL Ur Leukocyte Esterase Negative (Negative) Urine RBC 5 H (0-3) /hpf Urine WBC 4 (0-5) /hpf Ur Squamous Epith Cells 1 (0-5) /hpf Amorphous Sediment Moderate H (None) /hpf Urine Bacteria Occasional H (None) /hpf Hyaline Casts 46 (0-3) /lpf Urine Mucus Few H (Occasional) /lpf Micro UA Comment Cath-culture ind Ur Microscopic Review Not Reportable Urine Culture Comments Cath-cult indicated Nasal Screen MRSA (PCR) (Negative) Vancomycin Trough (5.0-10.0) mcg/mL Blood Type Antibody Screen MTS Gel Crossmatch 07/24/18 07/24/18 07/24/18 Range/Units 18:46 19:23 22:00 WBC (4.0-11.0) th/mm3 RBC (4.50-5.90) mil/mm3 Hgb (13.0-17.0) gm/dL Hct (39.0-51.0) % MCV (80.0-100.0) fL MCH (27.0-34.0) pg MCHC (32.0-36.0) % RDW (11.6-17.2) % Plt Count (150-450) th/mm3 MPV (7.0-11.0) fL Prelim Diff (Auto) Neut % (Auto) (16.0-70.0) % Lymph % (Auto) (9.0-44.0) % Mckenzie % (Auto) (0.0-8.0) % Eos % (Auto) (0.0-4.0) % Baso % (Auto) (0.0-2.0) % Neut # (Auto) (1.8-7.7) th/mm3 Lymph # (Auto) (1.0-4.8) th/mm3 Mckenzie # (Auto) (0.0-0.9) th/mm3 Eos # (Auto) (0.0-0.4) th/mm3 Baso # (Auto) (0.0-0.2) th/mm3 WBC Differential Seg Neuts % (Manual) (16-70) % Band Neuts % (Manual) (0-6) % Lymphocytes % (Manual) (9-44) % Monocytes % (Manual) (0-8) % Eosinophils % (Manual) (0-4) % Metamyelocytes % (Man) (0-1) % Myelocytes % (Man) (0-0) % Abs Neuts (Manual) (1.8-7.7) th/mm3 Differential Comment Platelet Estimate (Normal) Platelet Morphology (Normal) RBC Morphology (Normal) ESR (0-20) mm/hr PT (9.8-11.6) sec INR Ratio APTT (23.4-31.7) sec Sodium (136-145) meq/L Potassium (3.5-5.1) meq/L Chloride (98-107) meq/L Carbon Dioxide (21.0-32.0) meq/L Anion Gap (5-15) meq/L BUN (7-18) mg/dL Creatinine (0.60-1.30) mg/dL Estimated GFR (>89) mL/min POC Glucose 151 H (68-110) mg/dl Random Glucose (74-106) mg/dL Hemoglobin A1c (4.3-6.0) % Lactic Acid (0.4-2.0) mmol/L Calcium (8.5-10.1) mg/dL Phosphorus (2.5-4.9) mg/dL Magnesium (1.5-2.5) mg/dL Total Bilirubin (0.2-1.0) mg/dL AST (15-37) U/L ALT (12-78) U/L Alkaline Phosphatase (45-117) U/L Total Creatine Kinase (39-308) U/L CK-MB (CK-2) (0.5-3.6) ng/mL Troponin I (0.02-0.05) ng/mL C-Reactive Protein (0.00-0.30) mg/dL Total Protein (6.4-8.2) g/dL Albumin (3.4-5.0) g/dL Urine Color (Yellw/Straw) Urine Clarity (Clear) Urine pH (5.0-8.5) Ur Specific [place] (1.002-1.035) Urine Protein (Neg-Trace) mg/dL Urine Glucose (UA) (Negative) mg/dL Urine Ketones (Negative) mg/dL Urine Occult Blood (Negative) Urine Nitrate (Negative) Urine Bilirubin (Negative) Urine Urobilinogen (Less than 2) mg/dL Ur Leukocyte Esterase (Negative) Urine RBC (0-3) /hpf Urine WBC (0-5) /hpf Ur Squamous Epith Cells (0-5) /hpf Amorphous Sediment (None) /hpf Urine Bacteria (None) /hpf Hyaline Casts (0-3) /lpf Urine Mucus (Occasional) /lpf Micro UA Comment Ur Microscopic Review Urine Culture Comments Nasal Screen MRSA (PCR) Not detected (Negative) Vancomycin Trough (5.0-10.0) mcg/mL Blood Type O Positive Antibody Screen Negative MTS Gel Crossmatch See Detail 07/24/18 07/25/18 07/25/18 Range/Units 22:06 02:47 06:26 WBC 14.0 H (4.0-11.0) th/mm3 RBC 2.92 L (4.50-5.90) mil/mm3 Hgb 8.2 L (13.0-17.0) gm/dL Hct 24.1 L (39.0-51.0) % MCV 82.4 (80.0-100.0) fL MCH 28.0 (27.0-34.0) pg MCHC 34.0 (32.0-36.0) % RDW 16.4 (11.6-17.2) % Plt Count 412 (150-450) th/mm3 MPV 7.8 (7.0-11.0) fL Prelim Diff (Auto) Neut % (Auto) 81.5 H (16.0-70.0) % Lymph % (Auto) 5.5 L (9.0-44.0) % Mckenzie % (Auto) 10.0 H (0.0-8.0) % Eos % (Auto) 2.8 (0.0-4.0) % Baso % (Auto) 0.2 (0.0-2.0) % Neut # (Auto) 11.4 H (1.8-7.7) th/mm3 Lymph # (Auto) 0.8 L (1.0-4.8) th/mm3 Mckenzie # (Auto) 1.4 H (0.0-0.9) th/mm3 Eos # (Auto) 0.4 (0.0-0.4) th/mm3 Baso # (Auto) 0.0 (0.0-0.2) th/mm3 WBC Differential . Seg Neuts % (Manual) (16-70) % Band Neuts % (Manual) (0-6) % Lymphocytes % (Manual) (9-44) % Monocytes % (Manual) (0-8) % Eosinophils % (Manual) (0-4) % Metamyelocytes % (Man) (0-1) % Myelocytes % (Man) (0-0) % Abs Neuts (Manual) (1.8-7.7) th/mm3 Differential Comment Auto diff final Platelet Estimate (Normal) Platelet Morphology (Normal) RBC Morphology (Normal) ESR (0-20) mm/hr PT (9.8-11.6) sec INR Ratio APTT (23.4-31.7) sec Sodium (136-145) meq/L Potassium (3.5-5.1) meq/L Chloride (98-107) meq/L Carbon Dioxide (21.0-32.0) meq/L Anion Gap (5-15) meq/L BUN (7-18) mg/dL Creatinine (0.60-1.30) mg/dL Estimated GFR (>89) mL/min POC Glucose 156 H 109 (68-110) mg/dl Random Glucose (74-106) mg/dL Hemoglobin A1c (4.3-6.0) % Lactic Acid (0.4-2.0) mmol/L Calcium (8.5-10.1) mg/dL Phosphorus (2.5-4.9) mg/dL Magnesium (1.5-2.5) mg/dL Total Bilirubin (0.2-1.0) mg/dL AST (15-37) U/L ALT (12-78) U/L Alkaline Phosphatase (45-117) U/L Total Creatine Kinase (39-308) U/L CK-MB (CK-2) (0.5-3.6) ng/mL Troponin I (0.02-0.05) ng/mL C-Reactive Protein (0.00-0.30) mg/dL Total Protein (6.4-8.2) g/dL Albumin (3.4-5.0) g/dL Urine Color (Yellw/Straw) Urine Clarity (Clear) Urine pH (5.0-8.5) Ur Specific [place] (1.002-1.035) Urine Protein (Neg-Trace) mg/dL Urine Glucose (UA) (Negative) mg/dL Urine Ketones (Negative) mg/dL Urine Occult Blood (Negative) Urine Nitrate (Negative) Urine Bilirubin (Negative) Urine Urobilinogen (Less than 2) mg/dL Ur Leukocyte Esterase (Negative) Urine RBC (0-3) /hpf Urine WBC (0-5) /hpf Ur Squamous Epith Cells (0-5) /hpf Amorphous Sediment (None) /hpf Urine Bacteria (None) /hpf Hyaline Casts (0-3) /lpf Urine Mucus (Occasional) /lpf Micro UA Comment Ur Microscopic Review Urine Culture Comments Nasal Screen MRSA (PCR) (Negative) Vancomycin Trough (5.0-10.0) mcg/mL Blood Type Antibody Screen MTS Gel Crossmatch 07/25/18 07/25/18 07/25/18 Range/Units 06:26 06:26 09:16 WBC (4.0-11.0) th/mm3 RBC (4.50-5.90) mil/mm3 Hgb (13.0-17.0) gm/dL Hct (39.0-51.0) % MCV (80.0-100.0) fL MCH (27.0-34.0) pg MCHC (32.0-36.0) % RDW (11.6-17.2) % Plt Count (150-450) th/mm3 MPV (7.0-11.0) fL Prelim Diff (Auto) Neut % (Auto) (16.0-70.0) % Lymph % (Auto) (9.0-44.0) % Mckenzie % (Auto) (0.0-8.0) % Eos % (Auto) (0.0-4.0) % Baso % (Auto) (0.0-2.0) % Neut # (Auto) (1.8-7.7) th/mm3 Lymph # (Auto) (1.0-4.8) th/mm3 Mckenzie # (Auto) (0.0-0.9) th/mm3 Eos # (Auto) (0.0-0.4) th/mm3 Baso # (Auto) (0.0-0.2) th/mm3 WBC Differential Seg Neuts % (Manual) (16-70) % Band Neuts % (Manual) (0-6) % Lymphocytes % (Manual) (9-44) % Monocytes % (Manual) (0-8) % Eosinophils % (Manual) (0-4) % Metamyelocytes % (Man) (0-1) % Myelocytes % (Man) (0-0) % Abs Neuts (Manual) (1.8-7.7) th/mm3 Differential Comment Platelet Estimate (Normal) Platelet Morphology (Normal) RBC Morphology (Normal) ESR (0-20) mm/hr PT (9.8-11.6) sec INR Ratio APTT (23.4-31.7) sec Sodium 140 (136-145) meq/L Potassium 4.2 (3.5-5.1) meq/L Chloride 111 H D (98-107) meq/L Carbon Dioxide 20.1 L (21.0-32.0) meq/L Anion Gap 9 (5-15) meq/L BUN 49 H (7-18) mg/dL Creatinine 1.34 H (0.60-1.30) mg/dL Estimated GFR 52 L (>89) mL/min POC Glucose 83 (68-110) mg/dl Random Glucose 76 (74-106) mg/dL Hemoglobin A1c (4.3-6.0) % Lactic Acid 0.2 L (0.4-2.0) mmol/L Calcium 8.0 L D (8.5-10.1) mg/dL Phosphorus 4.4 (2.5-4.9) mg/dL Magnesium 2.2 (1.5-2.5) mg/dL Total Bilirubin 0.4 (0.2-1.0) mg/dL AST 52 H (15-37) U/L ALT 92 H (12-78) U/L Alkaline Phosphatase 209 H (45-117) U/L Total Creatine Kinase (39-308) U/L CK-MB (CK-2) (0.5-3.6) ng/mL Troponin I (0.02-0.05) ng/mL C-Reactive Protein (0.00-0.30) mg/dL Total Protein 6.3 L D (6.4-8.2) g/dL Albumin 1.9 L (3.4-5.0) g/dL Urine Color (Yellw/Straw) Urine Clarity (Clear) Urine pH (5.0-8.5) Ur Specific [place] (1.002-1.035) Urine Protein (Neg-Trace) mg/dL Urine Glucose (UA) (Negative) mg/dL Urine Ketones (Negative) mg/dL Urine Occult Blood (Negative) Urine Nitrate (Negative) Urine Bilirubin (Negative) Urine Urobilinogen (Less than 2) mg/dL Ur Leukocyte Esterase (Negative) Urine RBC (0-3) /hpf Urine WBC (0-5) /hpf Ur Squamous Epith Cells (0-5) /hpf Amorphous Sediment (None) /hpf Urine Bacteria (None) /hpf Hyaline Casts (0-3) /lpf Urine Mucus (Occasional) /lpf Micro UA Comment Ur Microscopic Review Urine Culture Comments Nasal Screen MRSA (PCR) (Negative) Vancomycin Trough (5.0-10.0) mcg/mL Blood Type Antibody Screen MTS Gel Crossmatch 07/25/18 07/25/18 07/25/18 Range/Units 13:01 17:50 21:05 WBC (4.0-11.0) th/mm3 RBC (4.50-5.90) mil/mm3 Hgb (13.0-17.0) gm/dL Hct (39.0-51.0) % MCV (80.0-100.0) fL MCH (27.0-34.0) pg MCHC (32.0-36.0) % RDW (11.6-17.2) % Plt Count (150-450) th/mm3 MPV (7.0-11.0) fL Prelim Diff (Auto) Neut % (Auto) (16.0-70.0) % Lymph % (Auto) (9.0-44.0) % Mckenzie % (Auto) (0.0-8.0) % Eos % (Auto) (0.0-4.0) % Baso % (Auto) (0.0-2.0) % Neut # (Auto) (1.8-7.7) th/mm3 Lymph # (Auto) (1.0-4.8) th/mm3 Mckenzie # (Auto) (0.0-0.9) th/mm3 Eos # (Auto) (0.0-0.4) th/mm3 Baso # (Auto) (0.0-0.2) th/mm3 WBC Differential Seg Neuts % (Manual) (16-70) % Band Neuts % (Manual) (0-6) % Lymphocytes % (Manual) (9-44) % Monocytes % (Manual) (0-8) % Eosinophils % (Manual) (0-4) % Metamyelocytes % (Man) (0-1) % Myelocytes % (Man) (0-0) % Abs Neuts (Manual) (1.8-7.7) th/mm3 Differential Comment Platelet Estimate (Normal) Platelet Morphology (Normal) RBC Morphology (Normal) ESR (0-20) mm/hr PT (9.8-11.6) sec INR Ratio APTT (23.4-31.7) sec Sodium (136-145) meq/L Potassium (3.5-5.1) meq/L Chloride (98-107) meq/L Carbon Dioxide (21.0-32.0) meq/L Anion Gap (5-15) meq/L BUN (7-18) mg/dL Creatinine (0.60-1.30) mg/dL Estimated GFR (>89) mL/min POC Glucose 154 H 205 H 182 H (68-110) mg/dl Random Glucose (74-106) mg/dL Hemoglobin A1c (4.3-6.0) % Lactic Acid (0.4-2.0) mmol/L Calcium (8.5-10.1) mg/dL Phosphorus (2.5-4.9) mg/dL Magnesium (1.5-2.5) mg/dL Total Bilirubin (0.2-1.0) mg/dL AST (15-37) U/L ALT (12-78) U/L Alkaline Phosphatase (45-117) U/L Total Creatine Kinase (39-308) U/L CK-MB (CK-2) (0.5-3.6) ng/mL Troponin I (0.02-0.05) ng/mL C-Reactive Protein (0.00-0.30) mg/dL Total Protein (6.4-8.2) g/dL Albumin (3.4-5.0) g/dL Urine Color (Yellw/Straw) Urine Clarity (Clear) Urine pH (5.0-8.5) Ur Specific [place] (1.002-1.035) Urine Protein (Neg-Trace) mg/dL Urine Glucose (UA) (Negative) mg/dL Urine Ketones (Negative) mg/dL Urine Occult Blood (Negative) Urine Nitrate (Negative) Urine Bilirubin (Negative) Urine Urobilinogen (Less than 2) mg/dL Ur Leukocyte Esterase (Negative) Urine RBC (0-3) /hpf Urine WBC (0-5) /hpf Ur Squamous Epith Cells (0-5) /hpf Amorphous Sediment (None) /hpf Urine Bacteria (None) /hpf Hyaline Casts (0-3) /lpf Urine Mucus (Occasional) /lpf Micro UA Comment Ur Microscopic Review Urine Culture Comments Nasal Screen MRSA (PCR) (Negative) Vancomycin Trough (5.0-10.0) mcg/mL Blood Type Antibody Screen MTS Gel Crossmatch 07/26/18 07/26/18 07/26/18 Range/Units 03:02 03:23 08:35 WBC (4.0-11.0) th/mm3 RBC (4.50-5.90) mil/mm3 Hgb (13.0-17.0) gm/dL Hct (39.0-51.0) % MCV (80.0-100.0) fL MCH (27.0-34.0) pg MCHC (32.0-36.0) % RDW (11.6-17.2) % Plt Count (150-450) th/mm3 MPV (7.0-11.0) fL Prelim Diff (Auto) Neut % (Auto) (16.0-70.0) % Lymph % (Auto) (9.0-44.0) % Mckenzie % (Auto) (0.0-8.0) % Eos % (Auto) (0.0-4.0) % Baso % (Auto) (0.0-2.0) % Neut # (Auto) (1.8-7.7) th/mm3 Lymph # (Auto) (1.0-4.8) th/mm3 Mckenzie # (Auto) (0.0-0.9) th/mm3 Eos # (Auto) (0.0-0.4) th/mm3 Baso # (Auto) (0.0-0.2) th/mm3 WBC Differential Seg Neuts % (Manual) (16-70) % Band Neuts % (Manual) (0-6) % Lymphocytes % (Manual) (9-44) % Monocytes % (Manual) (0-8) % Eosinophils % (Manual) (0-4) % Metamyelocytes % (Man) (0-1) % Myelocytes % (Man) (0-0) % Abs Neuts (Manual) (1.8-7.7) th/mm3 Differential Comment Platelet Estimate (Normal) Platelet Morphology (Normal) RBC Morphology (Normal) ESR (0-20) mm/hr PT (9.8-11.6) sec INR Ratio APTT (23.4-31.7) sec Sodium (136-145) meq/L Potassium (3.5-5.1) meq/L Chloride (98-107) meq/L Carbon Dioxide (21.0-32.0) meq/L Anion Gap (5-15) meq/L BUN 30 H (7-18) mg/dL Creatinine 1.01 (0.60-1.30) mg/dL Estimated GFR 72 L (>89) mL/min POC Glucose 120 H 93 (68-110) mg/dl Random Glucose (74-106) mg/dL Hemoglobin A1c (4.3-6.0) % Lactic Acid (0.4-2.0) mmol/L Calcium (8.5-10.1) mg/dL Phosphorus (2.5-4.9) mg/dL Magnesium (1.5-2.5) mg/dL Total Bilirubin (0.2-1.0) mg/dL AST (15-37) U/L ALT (12-78) U/L Alkaline Phosphatase (45-117) U/L Total Creatine Kinase (39-308) U/L CK-MB (CK-2) (0.5-3.6) ng/mL Troponin I (0.02-0.05) ng/mL C-Reactive Protein (0.00-0.30) mg/dL Total Protein (6.4-8.2) g/dL Albumin (3.4-5.0) g/dL Urine Color (Yellw/Straw) Urine Clarity (Clear) Urine pH (5.0-8.5) Ur Specific [place] (1.002-1.035) Urine Protein (Neg-Trace) mg/dL Urine Glucose (UA) (Negative) mg/dL Urine Ketones (Negative) mg/dL Urine Occult Blood (Negative) Urine Nitrate (Negative) Urine Bilirubin (Negative) Urine Urobilinogen (Less than 2) mg/dL Ur Leukocyte Esterase (Negative) Urine RBC (0-3) /hpf Urine WBC (0-5) /hpf Ur Squamous Epith Cells (0-5) /hpf Amorphous Sediment (None) /hpf Urine Bacteria (None) /hpf Hyaline Casts (0-3) /lpf Urine Mucus (Occasional) /lpf Micro UA Comment Ur Microscopic Review Urine Culture Comments Nasal Screen MRSA (PCR) (Negative) Vancomycin Trough (5.0-10.0) mcg/mL Blood Type Antibody Screen MTS Gel Crossmatch 07/26/18 07/26/18 07/26/18 Range/Units 11:33 13:45 14:53 WBC 10.5 (4.0-11.0) th/mm3 RBC 3.48 L (4.50-5.90) mil/mm3 Hgb 9.8 L (13.0-17.0) gm/dL Hct 29.4 L (39.0-51.0) % MCV 84.6 (80.0-100.0) fL MCH 28.2 (27.0-34.0) pg MCHC 33.4 (32.0-36.0) % RDW 17.1 (11.6-17.2) % Plt Count 438 (150-450) th/mm3 MPV 7.9 (7.0-11.0) fL Prelim Diff (Auto) Slide review pending Neut % (Auto) 74.2 H (16.0-70.0) % Lymph % (Auto) 9.1 (9.0-44.0) % Mckenzie % (Auto) 12.2 H (0.0-8.0) % Eos % (Auto) 3.7 (0.0-4.0) % Baso % (Auto) 0.8 (0.0-2.0) % Neut # (Auto) 7.8 H (1.8-7.7) th/mm3 Lymph # (Auto) 1.0 (1.0-4.8) th/mm3 Mckenzie # (Auto) 1.3 H (0.0-0.9) th/mm3 Eos # (Auto) 0.4 (0.0-0.4) th/mm3 Baso # (Auto) 0.1 (0.0-0.2) th/mm3 WBC Differential Manual diff final Seg Neuts % (Manual) 77 H (16-70) % Band Neuts % (Manual) 4 (0-6) % Lymphocytes % (Manual) 2 L (9-44) % Monocytes % (Manual) 7 (0-8) % Eosinophils % (Manual) 6 H (0-4) % Metamyelocytes % (Man) 1 (0-1) % Myelocytes % (Man) 3 H (0-0) % Abs Neuts (Manual) 8.9 H (1.8-7.7) th/mm3 Differential Comment . Platelet Estimate Normal (Normal) Platelet Morphology Normal (Normal) RBC Morphology Normal (Normal) ESR (0-20) mm/hr PT (9.8-11.6) sec INR Ratio APTT (23.4-31.7) sec Sodium (136-145) meq/L Potassium (3.5-5.1) meq/L Chloride (98-107) meq/L Carbon Dioxide (21.0-32.0) meq/L Anion Gap (5-15) meq/L BUN (7-18) mg/dL Creatinine (0.60-1.30) mg/dL Estimated GFR (>89) mL/min POC Glucose 126 H (68-110) mg/dl Random Glucose (74-106) mg/dL Hemoglobin A1c (4.3-6.0) % Lactic Acid (0.4-2.0) mmol/L Calcium (8.5-10.1) mg/dL Phosphorus (2.5-4.9) mg/dL Magnesium (1.5-2.5) mg/dL Total Bilirubin (0.2-1.0) mg/dL AST (15-37) U/L ALT (12-78) U/L Alkaline Phosphatase (45-117) U/L Total Creatine Kinase (39-308) U/L CK-MB (CK-2) (0.5-3.6) ng/mL Troponin I (0.02-0.05) ng/mL C-Reactive Protein (0.00-0.30) mg/dL Total Protein (6.4-8.2) g/dL Albumin (3.4-5.0) g/dL Urine Color (Yellw/Straw) Urine Clarity (Clear) Urine pH (5.0-8.5) Ur Specific [place] (1.002-1.035) Urine Protein (Neg-Trace) mg/dL Urine Glucose (UA) (Negative) mg/dL Urine Ketones (Negative) mg/dL Urine Occult Blood (Negative) Urine Nitrate (Negative) Urine Bilirubin (Negative) Urine Urobilinogen (Less than 2) mg/dL Ur Leukocyte Esterase (Negative) Urine RBC (0-3) /hpf Urine WBC (0-5) /hpf Ur Squamous Epith Cells (0-5) /hpf Amorphous Sediment (None) /hpf Urine Bacteria (None) /hpf Hyaline Casts (0-3) /lpf Urine Mucus (Occasional) /lpf Micro UA Comment Ur Microscopic Review Urine Culture Comments Nasal Screen MRSA (PCR) (Negative) Vancomycin Trough 12.0 H (5.0-10.0) mcg/mL Blood Type Antibody Screen MTS Gel Crossmatch 07/26/18 Range/Units 15:54 WBC (4.0-11.0) th/mm3 RBC (4.50-5.90) mil/mm3 Hgb (13.0-17.0) gm/dL Hct (39.0-51.0) % MCV (80.0-100.0) fL MCH (27.0-34.0) pg MCHC (32.0-36.0) % RDW (11.6-17.2) % Plt Count (150-450) th/mm3 MPV (7.0-11.0) fL Prelim Diff (Auto) Neut % (Auto) (16.0-70.0) % Lymph % (Auto) (9.0-44.0) % Mckenzie % (Auto) (0.0-8.0) % Eos % (Auto) (0.0-4.0) % Baso % (Auto) (0.0-2.0) % Neut # (Auto) (1.8-7.7) th/mm3 Lymph # (Auto) (1.0-4.8) th/mm3 Mckenzie # (Auto) (0.0-0.9) th/mm3 Eos # (Auto) (0.0-0.4) th/mm3 Baso # (Auto) (0.0-0.2) th/mm3 WBC Differential Seg Neuts % (Manual) (16-70) % Band Neuts % (Manual) (0-6) % Lymphocytes % (Manual) (9-44) % Monocytes % (Manual) (0-8) % Eosinophils % (Manual) (0-4) % Metamyelocytes % (Man) (0-1) % Myelocytes % (Man) (0-0) % Abs Neuts (Manual) (1.8-7.7) th/mm3 Differential Comment Platelet Estimate (Normal) Platelet Morphology (Normal) RBC Morphology (Normal) ESR (0-20) mm/hr PT (9.8-11.6) sec INR Ratio APTT (23.4-31.7) sec Sodium (136-145) meq/L Potassium (3.5-5.1) meq/L Chloride (98-107) meq/L Carbon Dioxide (21.0-32.0) meq/L Anion Gap (5-15) meq/L BUN (7-18) mg/dL Creatinine (0.60-1.30) mg/dL Estimated GFR (>89) mL/min POC Glucose 123 H (68-110) mg/dl Random Glucose (74-106) mg/dL Hemoglobin A1c (4.3-6.0) % Lactic Acid (0.4-2.0) mmol/L Calcium (8.5-10.1) mg/dL Phosphorus (2.5-4.9) mg/dL Magnesium (1.5-2.5) mg/dL Total Bilirubin (0.2-1.0) mg/dL AST (15-37) U/L ALT (12-78) U/L Alkaline Phosphatase (45-117) U/L Total Creatine Kinase (39-308) U/L CK-MB (CK-2) (0.5-3.6) ng/mL Troponin I (0.02-0.05) ng/mL C-Reactive Protein (0.00-0.30) mg/dL Total Protein (6.4-8.2) g/dL Albumin (3.4-5.0) g/dL Urine Color (Yellw/Straw) Urine Clarity (Clear) Urine pH (5.0-8.5) Ur Specific [place] (1.002-1.035) Urine Protein (Neg-Trace) mg/dL Urine Glucose (UA) (Negative) mg/dL Urine Ketones (Negative) mg/dL Urine Occult Blood (Negative) Urine Nitrate (Negative) Urine Bilirubin (Negative) Urine Urobilinogen (Less than 2) mg/dL Ur Leukocyte Esterase (Negative) Urine RBC (0-3) /hpf Urine WBC (0-5) /hpf Ur Squamous Epith Cells (0-5) /hpf Amorphous Sediment (None) /hpf Urine Bacteria (None) /hpf Hyaline Casts (0-3) /lpf Urine Mucus (Occasional) /lpf Micro UA Comment Ur Microscopic Review Urine Culture Comments Nasal Screen MRSA (PCR) (Negative) Vancomycin Trough (5.0-10.0) mcg/mL Blood Type Antibody Screen MTS Gel Crossmatch Imaging Data Radiologist's impression: Chest X-Ray 07/24/18 13:35 CONCLUSION: Mild interstitial edema Parenchymal changes left base that could be inflammatory Foot CT 07/24/18 13:35 CONCLUSION: 1. Extensive erosive changes involving the bases of the second, third, fourth and fifth metatarsals as well as the cuboid bone in the cuneiforms. Erosive changes are also noted involving the head of the right second metatarsal. Erosive changes are also noted involving the anterior and mid portions of the talus and the anterior aspect of the calcaneus. There is a also erosive change involving the anterior aspect of the distal tibia adjacent to the tibiotalar joint. Fluid and air are noted throughout the midfoot and extending proximally into the anterior ankle system with extensive cellulitis and deep soft tissue abscess. The largest of subcutaneous abscess is noted along the dorsal aspect of the proximal foot laterally and measures 4.3 cm. The findings are consistent with extensive osteomyelitis as well as diffuse cellulitis and deep soft tissue abscess collections. Discharge Plan Discharge Disposition Patient Disposition: ED Admit(ED Internal Use Only) Discharge Condition Condition: Critical Discharge Order Discharge Orders: ED Use Only Admit Order (Routine); Ordered 07/24/18 Ordered By: Crystal Newton Discharge Details Diagnosis: Charcot foot due to diabetes mellitus, Acute renal failure, Transaminitis, Sepsis, Cellulitis and abscess of foot, Osteomyelitis Physicians Team ED Provider: Collins Davis ED Midlevel Provider: Crytsal Newton Primary Care Provider: Olayinka Perdomo Attending Provider: Celio Khan Other Providers: Sal Mayo ; Cristhian Saravia Status ED Status: Left Department Discharge Information Discharge Date/Time: 07/24/18 18:00
[2018-07-24 14:22] LABS: Alanine Aminotransferase 156 U/L (12-78); Alkaline Phosphatase 274 U/L (45-117); Creatine Kinase 123 U/L (39-308); Total Protein 7.5 g/dL (6.4-8.2)
[2018-07-24 14:34] LABS: Creatine Kinase MB 1.8 ng/mL (0.5-3.6)
--- NOTE | 2018-07-24 14:36 | XR ---
EXAM DATE: 07/24/2018 2:31 PM EST AGE/SEX: 77 years / Male INDICATIONS: Fever. Open sore on left foot. CLINICAL DATA: This is the patient's initial encounter. Patient reports that signs and symptoms have been present for 1 day and indicates a pain score of 0/10. MEDICAL/SURGICAL HISTORY: None. . Quadruple bypass surgery. COMPARISON: No prior exams available for comparison. FINDINGS: Central line in good position. Sternal wires previous bypass are noted. The heart is enlarged. Mild i nterstitial edema is present with minimal parenchymal changes in the left base. There is no pneumothorax. CONCLUSION: Mild interstitial edema Parenchymal changes left base that could be inflammatory Electronically signed by: Chapin Edge MD Board Certified Radiologist 07/24/2018 2:35 PM EST
[2018-07-24 15:48] LABS: Amorphous Sediment,Urine Moderate /hpf; Bacteria,Urine Occasional /hpf; Bilirubin,Urine Negative (Negative); Clarity,Urine Cloudy (Clear); Color,Urine Amber (Yellw/Straw); Glucose,Urine (UA) Negative (Negative); Hyaline Casts,Urine 46 /lpf (0-3); Leukocyte Esterase,Urine Negative (Negative); Mucus,Urine Few /lpf (Occasional); Nitrite,Urine Negative (Negative); Squamous Epithelial Cell,Urine 1 /hpf (0-5)
--- NOTE | 2018-07-24 16:04 | CT ---
EXAM DATE: 07/24/2018 3:46 PM EST AGE/SEX: 77 years / Male INDICATIONS: Osteomyelitis. CLINICAL DATA: This is the patient's initial encounter. Patient reports that signs and symptoms have been present for 1 day and indicates a pain score of 8/10. MEDICAL/SURGICAL HISTORY: Hypercholesterolemia. Diabetes. Hypertension. CABG. RADIATION DOSE: 5.38 CTDI (mGy) COMPARISON: [facility], MR FOOT LEFT W & W/O CONTRAST, 04/11/2018. . TECHNIQUE: Multiple contiguous axial images were acquired using a multirow detector CT scanner witho ut contrast. Multiplanar reconstruction was performed in the sagittal and coronal planes. Using auto mated exposure control and adjustment of the mA and/or kV according to patient size, radiation dose w as kept as low as reasonably achievable to obtain optimal diagnostic quality images. DICOM format im age data is available electronically for review and comparison. FINDINGS: There is evidence of extensive erosive changes involving the bases of the second, third, fourth and f ifth metatarsals as well as the cuboid bone in the cuneiforms. Erosive changes also are noted involvi ng the head of the right second metatarsal. Erosive changes are also noted involving the anterior and mid portions of the talus and the anterior aspect of the calcaneus. There is a also erosive change i nvolving the anterior aspect of the distal tibia adjacent to the tibiotalar joint. Fluid and air are noted throughout the midfoot and extending proximally into the anterior ankle system with extensive c ellulitis and deep soft tissue abscess. The largest of subcutaneous abscess is noted along the dorsal aspect of the proximal foot laterally and measures 4.3 cm. The findings are consistent with extensiv e osteomyelitis as well as diffuse cellulitis and deep soft tissue abscess collections. CONCLUSION: 1. Extensive erosive changes involving the bases of the second, third, fourth and fifth metatarsals as well as the cuboid bone in the cuneiforms. Erosive changes are also noted involving the head of th e right second metatarsal. Erosive changes are also noted involving the anterior and mid portions of the talus and the anterior aspect of the calcaneus. There is a also erosive change involving the ante rior aspect of the distal tibia adjacent to the tibiotalar joint. Fluid and air are noted throughout the midfoot and extending proximally into the anterior ankle system with extensive cellulitis and manuela p soft tissue abscess. The largest of subcutaneous abscess is noted along the dorsal aspect of the pr oximal foot laterally and measures 4.3 cm. The findings are consistent with extensive osteomyelitis a s well as diffuse cellulitis and deep soft tissue abscess collections. Electronically signed by: Richard Gr MD Board Certified Radiologist 07/24/2018 4:03 PM EST
[2018-07-24] MEDS ORDERED: Bisacodyl 10 MG Supp RECTAL PRN (17:10)
[2018-07-24] MEDS ORDERED: Albumin Human 5% Inj 500 ML IV.SIG ONE (17:13)
--- NOTE | 2018-07-24 17:44 | P.HPCC ---
History of Present Illness Service: ICU Primary Care Physician: Olayinka Perdomo MD Chief Complaint: Infected left foot History of Present Illness: This is a 77-year-old male that presented to the ED after an appointment with his mining engineer with complaints erythematous left lower extremity with continued swelling and malodorous wound. The patient had previously been seen by the mining engineer and wound care was being performed at home daily with a home health nurse applying a wound VAC. Upon presentation to the mining engineer office he was noted eschar on the lateral portion of the foot and noted erythema, foul odor upon presentation to the doctor's office. The patient was immediately sent to the ED with recommendations to consult the on-call mining engineer and vascular surgery. Upon presentation the patient was noted to be hypotensive and septic shock, a left subclavian triple-lumen was placed by the ED physician Dr. Davis and the patient was immediately placed on norepinephrine after receiving 2 L of normal saline IVF, and antibiotics vancomycin and Zosyn. Blood cultures and wound cultures were obtained urine culture suggestive of urosepsis .the patient's past medical history is significant for hypertension, diabetes mellitus, coronary artery disease status post CABG . Critical care medicine was consulted for management. Upon my observation and presentation to the ED the patient was noted to be mildly hypotensive continuing on norepinephrine infusion. Left lower extremity was extremely erythematous, edematous and noted gangrene extending up to mid calf. Immediate bedside consult to vascular surgery, Dr. Mayo. Plan for immediate surgery, as discussed with family. - Diagnosis (1) Cellulitis of left foot (2) Charcot foot due to diabetes mellitus (3) Acute renal failure (4) Transaminitis (5) Sepsis (6) Cellulitis and abscess of foot (7) Osteomyelitis (8) Diabetes mellitus (9) Septic shock Inpatient Certification: I certify that the inpatient services were ordered in accordance with Medicare regulations governing the order. This includes certification that hospital inpatient services are reasonable and necessary and in the case of services not specified as inpatient-only under 42 CFR 419.22(n), that they are appropriately provided as inpatient services in accordance to with the 2-midnight benchmark under 43 CFR 412.3(e) Estimated Total Length of Stay (Days): 5 Plans for Post Hospital Care: Not yet determined Review of Systems All other systems reviewed negative except as stated in HPI PMFSH - History History Provided By: Patient, Family Member - Medical History Medical History: Medical History (Last Reviewed 07/24/18 @ 17:28 by Dee Rabago MD) CAD (coronary artery disease) Diabetes HTN (hypertension) High cholesterol - Surgical History Surgical History: Surgical History (Last Reviewed 07/24/18 @ 17:28 by Dee Rabago MD) History of knee surgery Hx of CABG Hx of bariatric surgery - Family History Family History: Family History (Last Reviewed 07/24/18 @ 17:28 by Dee Rabago MD) Mother History of diabetes mellitus - Tobacco History Second Hand Smoke Exposure: No Smoking Status: Former smoker - Alcohol History How Often Do You Have a Drink Containing Alcohol: Never - Substance Use History Substance History: No History of Abuse - Travel History Recent Travel in the [place] Within the Last 8 Weeks: No Recent Travel Out of the Country Within the Last 8 Weeks: No - Immunization History Tetanus Immunization: Unsure Medications and Allergies Active Medications: Active Medications Al Hydroxide/Mg Hydroxide (Milk Of Seb Liq) 30 ml PO Q12H PRN PRN Reason: Mild Constipation Bisacodyl (Dulcolax Supp) 10 mg RECTAL DAILY PRN PRN Reason: SEVERE CONSITIPATION Chlorhexidine Gluconate (Chlorhexidine 2% Cloth) 3 pack TOPICAL DAILY@0400 BRIGITTE Stop: 07/30/18 03:59 Chlorhexidine Gluconate (Chlorhexidine 2% Cloth) 3 pack TOPICAL DAILY@0400 PRN PRN Reason: Extra cloth needed Stop: 07/30/18 03:59 Famotidine (Pepcid Pf Inj) 20 mg IV.PUSH Q12HR BRIGITTE Norepinephrine Bitartrate (Levophed-Dextrose 4 Mg/250 Ml Drip) 4 mg in 250 mls @ 7.5 mls/hr IV.SIG TITRATE PRN; Protocol PRN Reason: Per Protocol Last Titration: 07/24/18 16:24 Dose: 2 mcg/min, 7.5 mls/hr Albumin Human (Alburx 5% Inj) 500 mls @ 250 mls/hr IV.SIG ONCE ONE Stop: 07/24/18 19:12 Sodium Chloride (Ns Inj) 1,000 mls @ 1,000 mls/hr IV.SIG BOLUS BRIGITTE Stop: 07/24/18 18:14 Last Admin: 07/24/18 17:18 Dose: 1,000 mls/hr Sodium Chloride (Ns Inj) 1,000 mls @ 100 mls/hr IV.CONT .Q10H BRIGITTE Lactulose (Lactulose Liq) 30 ml PO DAILY PRN PRN Reason: SEVERE CONSITIPATION Senna/Docusate Sodium (Marci-Colace) 1 tab PO BID BRIGITTE Sennosides (Senokot) 17.2 mg PO Q12H PRN PRN Reason: Moderate Constipation Sodium Chloride (Ns Flush) 2 ml IV.FLUSH PRN PRN PRN Reason: FLUSH AFTER USING IV ACCESS Sodium Chloride (Ns Flush) 2 ml IV.FLUSH BID BRIGITTE Terbutaline Sulfate (Brethine Inj) 1 mg SQ UNSCH PRN PRN Reason: For Extravasation Allergies Allergy/AdvReac Type Severity Reaction Status Date / Time No Known Allergies Allergy Unverified 07/24/18 13:22 Home Medications Medication Instructions Recorded Confirmed Type amitriptyline 150 mg PO DAILY 04/10/18 07/24/18 History carvedilol [Coreg] 12.5 mg PO BID 04/10/18 07/24/18 History ferrous sulfate 325 mg PO DAILY 04/10/18 07/24/18 History gabapentin 800 mg PO TID 04/10/18 07/24/18 History glipizide 10 mg PO BID 04/10/18 07/24/18 History lisinopril 10 mg PO BID 04/10/18 07/24/18 History metformin 1,000 mg PO BID 04/10/18 07/24/18 History metformin 500 mg PO AC LUNCH 04/10/18 07/24/18 History simvastatin [Zocor] 40 mg PO QPM 07/24/18 07/24/18 History Results - Labs CBC & Chem 7: 07/24/18 13:40 07/24/18 13:40 Labs: Short CBC 07/24/18 Range/Units 13:40 WBC 20.4 H (4.0-11.0) th/mm3 Hgb 10.1 L (13.0-17.0) gm/dL Hct 30.2 L (39.0-51.0) % Plt Count 476 H (150-450) th/mm3 BMP 07/24/18 13:40 Sodium 134 L Potassium 4.9 Chloride 102 Carbon Dioxide 19.8 L BUN 55 H Creatinine 2.08 H Calcium 8.8 Cardiac Enzymes 12/21/18 Range/Units 13:40 Total Creatine Kinase 123 (39-308) U/L CK-MB (CK-2) 1.8 (0.5-3.6) ng/mL Troponin I Less than 0.02 L (0.02-0.05) ng/mL Liver Function 07/24/18 Range/Units 13:40 Total Bilirubin 0.6 (0.2-1.0) mg/dL AST 125 H (15-37) U/L ALT 156 H (12-78) U/L Alkaline Phosphatase 274 H (45-117) U/L Albumin 2.1 L (3.4-5.0) g/dL Urine 07/24/18 Range/Units 14:50 Urine Color Leti (Yellw/Straw) Urine Clarity Cloudy H (Clear) Urine pH 5.0 (5.0-8.5) Ur Specific [employer] 1.020 (1.002-1.035) Urine Protein 30 H (Neg-Trace) mg/dL Urine Glucose (UA) Negative (Negative) mg/dL - Imaging Impressions Chest X-Ray 07/24/18 13:35 CONCLUSION: Mild interstitial edema Parenchymal changes left base that could be inflammatory Foot CT 07/24/18 13:35 CONCLUSION: 1. Extensive erosive changes involving the bases of the second, third, fourth and fifth metatarsals as well as the cuboid bone in the cuneiforms. Erosive changes are also noted involving the head of the right second metatarsal. Erosive changes are also noted involving the anterior and mid portions of the talus and the anterior aspect of the calcaneus. There is a also erosive change involving the anterior aspect of the distal tibia adjacent to the tibiotalar joint. Fluid and air are noted throughout the midfoot and extending proximally into the anterior ankle system with extensive cellulitis and deep soft tissue abscess. The largest of subcutaneous abscess is noted along the dorsal aspect of the proximal foot laterally and measures 4.3 cm. The findings are consistent with extensive osteomyelitis as well as diffuse cellulitis and deep soft tissue abscess collections. Exam Vital signs: Vital Signs 07/24/18 13:20 07/24/18 13:31 07/24/18 13:52 Temperature 97.6 F Pulse Rate 85 80 76 Respiratory Rate 20 18 Blood Pressure 68/44 L 90/47 L Pulse Oximetry 89 L 95 99 07/24/18 14:09 07/24/18 15:39 07/24/18 17:18 Temperature 99.3 F 99 F Pulse Rate 77 74 67 Respiratory Rate 20 14 16 Blood Pressure 96/54 L 91/55 L 107/52 L Pulse Oximetry 94 L 94 L Intake & Output 07/23/18 07/24/18 07/24/18 18:59 06:59 18:59 Intake Total 2450 / 2450 Balance 2450 / 2450 Weight 83.461 kg Intake: IV 2450 / 2450 Ofirmev Inj 1,000 mg In 100 ml 100 / 100 @ 400 mls/hr IV.SIG ONCE ONE Rx #:[id number] Zosyn 4.5 GM Premix 4.5 gm In 100 / 100 100 ml @ 200 mls/hr IV.SIG STAT STA Rx#:[id number] NS Inj 1,000 ML @ 1000 mls/hr 1999 / 1999 IV.SIG BOLUS BRIGITTE Rx#:[id number] Vancomycin Inj 1,000 MG In NS 250 / 250 Inj 250 ML @ 250 mls/hr IV.SIG STAT STA Rx#:[id number] - Constitutional moderate distress, average body habitus, chronically ill appearing, cooperative - Routine HEENT Exam Head: Present: normocephalic Eye: Present: EOMI, PERRL, normal accommodation, conjunctivae pink ENT: Present: mucous membranes moist, dentition normal, nares patent, external ear normal - Routine Neck Exam Present: supple, full ROM, trachea midline - Routine Respiratory Exam Present: CTA bilaterally - Routine Cardiovascular Exam Present: RRR, S1, S2 - Routine Abdominal Exam Present: soft, normoactive bowel sounds - Routine Extremities Exam Present: edema, tenderness (Left lower extremity, erythematous 3+ edema, eschar lateral dorsal aspect of foot, sole open lesion purulent drainage mild odorous) , joint swelling - Routine Skin Exam Present: intact, gangrene (Left lower extremitygangrene, malodorous opening plantar aspect) - Routine Neurological Exam Present: alert, oriented X3, CN II-XII intact, normal reflexes Caprini VTE Risk Assessment Caprini Risk Assessment Model: Point Value = 1 Point Value = 2 Point Value = 3 Point Value = 5 Age 41-60 Minor surgery BMI > 25 kg/m2 Swollen legs Varicose veins or History of unexplained or recurrent spontaneous Oral contraceptives or hormone replacement Sepsis (< 1 month) Serious lung disease, including pneumonia (< 1 month) Abnormal pulmonary function Acute myocardial infarction Congestive heart failure (< 1 month) History of inflammatory bowel disease Medical patient at bed rest Age 61-74 Arthroscopic surgery Major open surgery (> 45 min) Laparoscopic surgery (> 45 min) Malignancy Confined to bed (> 72 hours) Immobilizing plaster cast Central venous access Age >= 75 History of VTE Family history of VTE Factor V Leiden Prothrombin [id number] Lupus anticoagulant Anticardiolipin antibodies Elevated serum homocysteine Heparin-induced thrombocytopenia Other congenital or acquired thrombophilia Stroke (< 1 month) Elective arthroplasty Hip, pelvis, or leg fracture Acute spinal cord injury (< 1 month) Prophylaxis Regimen: Total Risk Factor Score Risk Level Prophylaxis Regimen 0-1 Low Early ambulation 2 Moderate Order ONE of the following: *Sequential Compression Device (SCD) *Heparin 5000 units SQ BID 3-4 Higher Order ONE of the following medications: *Heparin 5000 units SQ TID *Enoxaparin/Lovenox 40 mg SQ daily (WT < 150 kg, CrCl > 30 mL/min) *Enoxaparin/Lovenox 30 mg SQ daily (WT < 150 kg, CrCl > 10-29 mL/min) *Enoxaparin/Lovenox 30 mg SQ BID (WT < 150 kg, CrCl > 30 mL/min) AND/OR *Sequential Compression Device (SCD) 5 or more Highest Order ONE of the following medications: *Heparin 5000 units SQ TID (Preferred with Epidurals) *Enoxaparin/Lovenox 40 mg SQ daily (WT < 150 kg, CrCl > 30 mL/min) *Enoxaparin/Lovenox 30 mg SQ daily (WT < 150 kg, CrCl > 10-29 mL/min) *Enoxaparin/Lovenox 30 mg SQ BID (WT < 150 kg, CrCl > 30 mL/min) AND *Sequential Compression Device (SCD) 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(s): E11.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 Status: Acute (3) Acute renal failure Code(s): N17.9 - Acute kidney failure, unspecified Status: Acute (4) Transaminitis Code(s): R74.0 - Nonspecific elevation of levels of transaminase and lactic acid dehydrogenase [LDH] Status: Acute (5) Sepsis Code(s): A41.9 - Sepsis, unspecified organism Status: Acute (6) Cellulitis and abscess of foot Code(s): L03.119 - Cellulitis of unspecified part of limb; L02.619 - Cutaneous abscess of unspecified foot Status: Acute (7) Osteomyelitis Code(s): M86.9 - Osteomyelitis, unspecified Status: Acute (8) Diabetes mellitus Code(s): E11.9 - Type 2 diabetes mellitus without complications Status: Acute (9) Septic shock Code(s): A41.9 - Sepsis, unspecified organism; R65.21 - Severe sepsis with septic shock Status: Acute - Assessment and Plan Plan: Assessment This is a 77-year-old gentleman previously noted to have a Charcot foot secondary to diabetes mellitus with wound care being performed at home, now presents with gangrene left foot with extensive osteomyelitis and diffuse cellulitis and septic shock. Patient is requiring vasopressor support, norepinephrine. Patient will immediately go for emergent surgery with vascular surgeon Dr. Mayo. The patient is critically ill. Admit to ICU. Plan by systems: Neurologic: Diabetic neuropathy Hold gabapentin, patient normally takes gabapentin 800 mg 3 times daily Neuro checks per ICU protocol Cooling blanket for temp greater than 101, secondary to elevated liver enzymes Respiratory: Maintain O2 sat greater than 92% Incentive spirometry every hour while awake postoperatively Provide O2 via nasal cannula currently at 2 L/min O2 saturation 97% ABG and chest x-ray when clinically indicated Cardiovascular: Coronary artery disease status post CABG Hypertension Labetalol 10 mg every 6 hours as needed for systolic greater than 160mmHg Hydralazine 20 mg every 4 hours as needed for systolic blood pressure greater than 160mmHg Continue carvedilol 2.5 mg BID Currently on norepinephrine to maintain a map greater than 65 Renal: Chronic kidney disease Avoid nephrotoxins Hold lisinopril and all ACEI patient normally takes 10 mg twice daily- creatinine 2.0 -- Strict I/Os FEN/GI: Hyponatremia Transaminitis Metabolic acidosis Maintain n.p.o. status for now, plan scheduling at the OR Monitor CMP Hold atorvastatin home med at this time secondary to elevated liver enzyme Obtain lipid panel Hold metformin home dosing by patient secondary to metabolic acidosis Heme/ID: Osteomyelitis Cellulitis Gangrene/infected left foot Follow-up wound culture Follow-up blood cultures x2 Vascular consult Dr. Mayo patient to go to OR for debridement versus amputation left lower extremity Patient received vancomycin and Zosyn in the emergency room continue prophylactic antibiotics Initiate cefepime 2 g every 12 hours (renal dosing) and vancomycin Obtain postoperative labs Endocrine: Diabetes mellitus Glucose monitoring per ICU protal Obtain hemoglobin A1c evaluate compliance -- SSI Prophylaxis: GI Prophylaxis Famotidine DVT Prophylaxis -- SCDs Hold heparin for now-patient plan to go to the OR Lines: Left subclavian IV placed in the ED , peripheral IVs x2 Dispo: My billing statement This patient remains critically ill with one or more organ systems which are or may become a threat to life. I have spent in excess of 58 minutes discontinuously in the care and management of this patient. This time is exclusive of procedures, and includes, but is not limited to, evaluation of the patient, review of the medical record, discussions with family, consultants, nursing staff, or respiratory therapy, and documentation in the medical record. Code Status: Full Discussed Condition With: Patient, patient's and daughter, Dr. Cruz and ED RN at bedside (3) Acute renal failure Qualifiers: Acute renal failure type: unspecified Qualified Code(s): N17.9 - Acute kidney failure, unspecified (5) Sepsis Qualifiers: Sepsis type: sepsis due to unspecified organism Qualified Code(s): A41.9 - Sepsis, unspecified organism (7) Osteomyelitis Qualifiers: Osteomyelitis type: unspecified type Osteomyelitis location: foot Laterality : left Qualified Code(s): M86.9 - Osteomyelitis, unspecified
--- NOTE | 2018-07-24 18:20 | MB ---
cc: Sal Mayo MD DATE: 07/24/2018 CONSULTING PHYSICIAN: Sal Mayo MD, Vascular Surgery REASON FOR CONSULTATION: Gangrene of the left foot, gas gangrene, septic shock. HISTORY OF PRESENT ILLNESS: This 77-year-old male, who has known vasculopathy, presents now to the emergency room with a foul smelling left foot and changes that have been progressive over the last few weeks. The patient has been seen by podiatry since April of this year and heroic efforts were made to save the foot. The patient does at this point have a nonsalvageable foot, there is gangrene of the lateral aspect of the bottom of the foot and severe osteomyelitis with gas gangrene of the same, hence the consultation. PAST MEDICAL HISTORY: Hypertension, coronary artery disease, diabetes mellitus, hyperlipidemia, and obesity. PAST SURGICAL HISTORY: Coronary artery bypass surgery and bariatric surgery, as well as debridement of the foot. MEDICATIONS: Can be found in the record. 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 PHYSICAL EXAMINATION: GENERAL: Reveals a 77-year-old gentleman, appearing pale and very ill. HEENT: Normocephalic. No trauma to the head. Pupils equal, reactive. Extraocular muscles intact. NECK: Supple. Bilateral carotid pulses and bilateral carotid bruits 3/6. CHEST: Bilateral breath sounds. HEART: Regular rate and rhythm. Hemodynamically, the patient is now in process of being stabilized with fluids, electrolytes, and Levophed supplemental drip due to sepsis. ABDOMEN: Soft, active bowel sounds. No rebound, no guarding, no masses. EXTREMITIES: The patient has palpable femoral pulses, dopplerable popliteal pulses, bilateral palpable dorsalis pedis and posterior tibial on the right, and none on the left. The left foot is swollen, red, with gangrene of the lateral aspect of the foot and a large plantar ulcer overlying the second metatarsal extending left and right, up and down. There is on palpation gas gangrene that the involves the foot and lower leg all the way to the knee. RECOMMENDATIONS: This gentleman has gas gangrene, Charcot joint, and osteomyelitis with gangrene of the left foot with septic shock. This is a surgical emergency. The patient needs to be resuscitated rapidly and will be taken to the operating room for a guillotine amputation of the left foot and wound VAC placement, and then we will see how things go. The patient will remain in the ICU and, after 2 or 3 washouts, probably will be able to have a [id number] amputation closed, but will go through that as the patient improves. Thank you very much for the referral. To the OR now. Critical care 38 minutes. MD LUISITO Rios/john , 05:34 PM , 05:40 PM
[2018-07-24] MEDS ORDERED: Dextrose 50% in Water 50 ML Vial IV.PUSH PRN (18:23)
[2018-07-24] MEDS ORDERED: Vancomycin Consult Pharmacy OTHER PRN (18:36)
[2018-07-24] MEDS ORDERED: fentaNYL Citrate Inj 100 MCG/2 ML Ampul ONE (18:59)
[2018-07-24] MEDS: Sod Chloride 0.9% Inj 1,000 ML IV.CONT SCH (19:45)
[2018-07-24] MEDS ORDERED: *morphine SULFATE 4 MG/ML PERIprocedure ONLY ONE (19:58)
--- NOTE | 2018-07-24 20:29 | MP ---
cc: Sal Mayo MD DATE OF OPERATION: 07/24/2018 PREOPERATIVE DIAGNOSES: 1. Gangrene of the left foot. 2. Gas gangrene of the left leg. 3. Septic shock. 4. Hypotension. 5. Diabetes mellitus. 6. Peripheral vascular disease. POSTOPERATIVE DIAGNOSES: 1. Gangrene of the left foot. 2. Gas gangrene of the left leg. 3. Septic shock. 4. Hypotension. 5. Diabetes mellitus. 6. Peripheral vascular disease. PROCEDURE PERFORMED: Left below-knee guillotine amputation, staged procedure. SURGEON: Sal Mayo MD ANESTHESIA: General. ESTIMATED BLOOD LOSS: 20 mL. DESCRIPTION OF PROCEDURE: The patient was prepped and draped in usual fashion and then a circular incision made with a 10 blade about 3 inches above the ankle. This was deepened to the bone with amputation knife and then tibia and fibula transected and specimen removed. Area was irrigated with copious amounts of saline and anterior and posterior tibial arteries ligated with 2-0 Vicryl stick ties. Peroneal artery was ligated between the 3 vessels. There is blood flow probably only in posterior tibial and maybe a little bit in peroneal. Muscle appears to be somewhat dusky, but viable. There is purulent material leaking between the muscle groups. The area was irrigated with saline copiously and then wound VAC applied. The patient tolerated the procedure well. He was taken to the recovery room in stable condition. The patient will undergo several more washouts in the OR prior to creating a posterior flap and closing this for definitive closure. MD LUISITO Rios/john , 07:14 PM , 07:18 PM
[2018-07-24] MEDS: Famotidine PF Inj 20 MG/2 ML Vial IV.PUSH SCH (21:52)
[2018-07-24] MEDS: Senna/Docusate Sodium 8.6/50 MG Tablet PO SCH (21:52)
[2018-07-24] MEDS: Insulin NovoLOG Aspart Correctional Sugar Inj SQ SCH (22:14)
[2018-07-25] MEDS: Insulin NovoLOG Aspart Correctional Sugar Inj SQ SCH ×5 (02:47→21:08)
[2018-07-25] MEDS ORDERED: Chlorhexidine Gluconate 2% 1 Pack (2 Cloths) TOPICAL PRN (04:00)
[2018-07-25] MEDS: Sod Chloride 0.9% Inj 1,000 ML IV.CONT SCH ×2 (06:16→19:02)
[2018-07-25] MEDS: Chlorhexidine Gluconate 2% 1 Pack (2 Cloths) TOPICAL SCH (06:16)
[2018-07-25 07:02] LABS: Baso % (Auto) 0.2 % (0.0-2.0); Eos # (Auto) 0.4 th/mm3 (0.0-0.4); Eos % (Auto) 2.8 % (0.0-4.0); Hematocrit 24.1 % (39.0-51.0); Hemoglobin 8.2 gm/dL (13.0-17.0); Lymph # (Auto) 0.8 th/mm3 (1.0-4.8); Lymph % (Auto) 5.5 % (9.0-44.0); Mean Corpuscular Volume 82.4 fL (80.0-100.0); Mean Platelet Volume 7.8 fL (7.0-11.0); Mono # (Auto) 1.4 th/mm3 (0.0-0.9); Neut # (Auto) 11.4 th/mm3 (1.8-7.7); Neut % (Auto) 81.5 % (16.0-70.0); Platelet Count 412 th/mm3 (150-450); Red Blood Count 2.92 mil/mm3 (4.50-5.90); Red Cell Distribution Width 16.4 % (11.6-17.2)
[2018-07-25 07:31] LABS: Alanine Aminotransferase 92 U/L (12-78); Albumin 1.9 g/dL (3.4-5.0); Alkaline Phosphatase 209 U/L (45-117); Anion Gap 9 meq/L (5-15); Aspartate Aminotransferase 52 U/L (15-37); Blood Urea Nitrogen 49 mg/dL (7-18); Carbon Dioxide 20.1 meq/L (21.0-32.0); Chloride 111 meq/L (98-107); Glomerular Filtration Rate 52 mL/min (>89); Glucose,Random 76 mg/dL (74-106); Magnesium 2.2 mg/dL (1.5-2.5); Phosphorus 4.4 mg/dL (2.5-4.9); Potassium 4.2 meq/L (3.5-5.1); Sodium 140 meq/L (136-145); Total Protein 6.3 g/dL (6.4-8.2)
[2018-07-25] MEDS: Morphine Inj 4 MG/ML Vial IV.PUSH PRN ×2 (09:00→19:49)
[2018-07-25 09:49] LABS: Hemoglobin A1c 7.9 % (4.3-6.0)
[2018-07-25] MEDS: Famotidine PF Inj 20 MG/2 ML Vial IV.PUSH SCH ×2 (10:46→20:50)
[2018-07-25] MEDS: oxyCODONE/Acetaminophen 10/325 Tablet PO PRN (10:48)
[2018-07-25] MEDS ORDERED: Carvedilol 12.5 MG Tablet PO SCH (12:00)
[2018-07-25] MEDS: Gabapentin 400 MG Capsule PO SCH ×2 (12:16→18:19)
[2018-07-25] MEDS: Senna/Docusate Sodium 8.6/50 MG Tablet PO SCH ×2 (12:16→20:51)
--- NOTE | 2018-07-25 12:55 | MB ---
cc: Cristhian Saravia MD DATE: 07/25/2018 REQUESTING PHYSICIAN: Dr. Rabago REASON FOR VISIT: Left lower extremity gangrene. Status post left BKA. HISTORY OF PRESENT ILLNESS: This is a 77-year-old white male, who has had a history of wound infection of the left foot. The patient tells me that the wound infection had been present for about a year. It was being followed by podiatry and was having wound dressing changes to the wound. He was noted to have gangrenous changes at the foot and therefore he was referred to the emergency department. The patient's temperature was normal in the emergency department, but his blood pressure was low. At one point the blood pressure was 68 68/44. His white count was elevated at 20.4. The patient has undergone left [id number] amputation. Cultures from the foot prior to surgery showed Staphylococcus aureus, gram-negative alexander and gamma hemolytic strep. Final sensitivity is not yet available. Blood culture has gram-positive cocci in 3 of 4 bottles. The patient is currently lying in bed, in no acute distress. He is awake and alert. He denies any complaints besides a little discomfort in the left lower extremity. The white blood cell count has decreased from 20 to 14.0. PAST MEDICAL HISTORY: Diabetes mellitus, hypertension, hypercholesterolemia, coronary artery disease, history of coronary artery bypass graft surgery, history of knee surgery, history of bariatric surgery. ALLERGIES: NO KNOWN DRUG ALLERGIES. MEDICATIONS: 1. Vancomycin. 2. Cefepime. 3. Pepcid. 4. Insulin. 5. Morphine sulfate. 6. Percocet 10 p.r.n. SOCIAL HISTORY: No tobacco. The patient quit using tobacco in the . No alcohol. No illicit drugs. FAMILY HISTORY: Noncontributory. REVIEW OF SYSTEMS: All systems have been reviewed and are negative. PHYSICAL EXAMINATION: GENERAL: This is a well-developed male, who is in no acute distress. He is awake and alert and oriented. VITAL SIGNS: Temperature 98 degrees, BP 134/56, respirations 20, heart rate 63. HEENT: Head is atraumatic. Extraocular movements grossly intact. Pupils reactive to light. No icterus. Oropharynx: No lesions. NECK: No adenopathy or swelling. LUNGS: Clear. HEART: Regular S1, S2. A 2/6 systolic murmur at the left sternal border. ABDOMEN: Benign. Soft, nontender. RECTAL: Not performed. EXTREMITIES: No clubbing or cyanosis. Left leg is post-below [id number] amputation and has a wound VAC in place. SKIN: No rash. NEUROLOGIC: No gross focal findings. PSYCHIATRIC: The patient is calm and cooperative. LABORATORY DATA: WBC 14.0, platelets 412, hemoglobin 8.2. Urine culture pending. IMPRESSION: 1. Septic shock due to gram-positive bacteria, likely originating from the gangrenous foot. The patient is status post left [id number] amputation for gangrene of the left foot. 2. Leukocytosis, improved. RECOMMENDATIONS: Because the patient had bacteremia, it is necessary to continue to treat with antibiotics even despite the fact that the patient has undergone left BKA for the gangrene. 1. Continue vancomycin. 2. Continue cefepime. 3. Follow the sensitivity and identity of the gram-positive bacteria in the blood. 4. Repeat the blood cultures again to check for clearance of the bacteremia. Thank you for this consultation. I will follow the patient's progress. Cristhian Saravia MD FFD/ct , 12:15 PM , 12:35 PM
[2018-07-25] MEDS: Vancomycin Inj 1,750 MG in Sodium Chlor 0.9% Inj 500 ML IV.SIG SCH (13:44)
--- NOTE | 2018-07-25 14:08 | P.PNCC ---
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 The patient had previously been seen by the restaurant hourly team member and wound care was being performed at home daily with a home health nurse applying a wound VAC. Upon presentation to the restaurant hourly team member office he was noted eschar on the lateral portion of the foot and noted erythema, foul odor upon presentation to the doctor's office. The patient was immediately sent to the ED with recommendations to consult the on-call restaurant hourly team member and vascular surgery. Upon presentation the patient was noted to be hypotensive and septic shock, a left subclavian triple-lumen was placed by the ED physician Dr. Davis and the patient was immediately placed on norepinephrine after receiving 2 L of normal saline IVF, and antibiotics vancomycin and Zosyn. Blood cultures and wound cultures were obtained urine culture suggestive of urosepsis .the patient's past medical history is significant for hypertension, diabetes mellitus, coronary artery disease status post CABG . Critical care medicine was consulted for management. Upon my observation and presentation to the ED the patient was noted to be mildly hypotensive continuing on norepinephrine infusion. Left lower extremity was extremely erythematous, edematous and noted gangrene extending up to mid calf. Immediate bedside consult to vascular surgery, Dr. Mayo. Plan for immediate surgery, as discussed with family. 07/25: Underwent left below-knee amputation yesterday by Dr. Swann. Off pressors since late last night. Awake and alert this morning. Complaining of pain at surgical site. Denies any shortness of breath, chest pain or abdominal pain. Objective Vital Signs / I&O: Vital Signs 07/24/18 13:52 07/24/18 14:09 07/24/18 15:39 Temperature 99.3 F Pulse Rate 76 77 74 Respiratory Rate 20 14 Blood Pressure 96/54 L 91/55 L Pulse Oximetry 99 94 L 07/24/18 17:18 07/24/18 19:08 07/24/18 19:15 Temperature 99 F 97.7 F Pulse Rate 67 69 65 Respiratory Rate 16 12 17 Blood Pressure 107/52 L 104/57 L 110/56 L Pulse Oximetry 94 L 93 L 100 07/24/18 19:30 07/24/18 19:45 07/24/18 20:00 Temperature 98.1 F Pulse Rate 64 63 63 Respiratory Rate 17 16 17 Blood Pressure 100/55 L 97/52 L 108/55 L Pulse Oximetry 98 98 97 07/24/18 20:15 18 20:23 07/24/18 20:30 Temperature 98.3 F Pulse Rate 62 61 Respiratory Rate 12 12 14 Blood Pressure 118/55 L Pulse Oximetry 98 97 07/24/18 20:45 07/24/18 21:21 07/24/18 21:33 Temperature 98 F Pulse Rate 65 Respiratory Rate 22 Blood Pressure Pulse Oximetry 98 95 97 07/24/18 22:00 07/24/18 22:12 07/24/18 22:13 Temperature Pulse Rate 63 63 Respiratory Rate 19 18 Blood Pressure 114/60 Pulse Oximetry 97 98 98 07/24/18 22:40 07/24/18 23:00 07/24/18 23:12 Temperature Pulse Rate 63 60 Respiratory Rate 21 16 Blood Pressure 132/63 Pulse Oximetry 96 99 98 07/25/18 00:00 07/25/18 00:12 07/25/18 01:00 Temperature Pulse Rate 60 59 L 57 L Respiratory Rate 17 17 16 Blood Pressure 106/53 L Pulse Oximetry 99 98 99 07/25/18 01:12 07/25/18 02:00 07/25/18 02:12 Temperature Pulse Rate 57 L 57 L 59 L Respiratory Rate 17 17 19 Blood Pressure 132/63 125/65 Pulse Oximetry 99 100 100 07/25/18 03:00 07/25/18 03:12 07/25/18 04:00 Temperature 97.9 F Pulse Rate 62 63 62 Respiratory Rate 18 26 H 19 Blood Pressure 132/71 Pulse Oximetry 99 99 99 07/25/18 04:12 07/25/18 05:00 07/25/18 05:12 Temperature Pulse Rate 60 59 L 60 Respiratory Rate 20 17 15 Blood Pressure 130/60 125/64 Pulse Oximetry 100 100 100 07/25/18 06:00 07/25/18 06:12 07/25/18 07:00 Temperature Pulse Rate 60 61 63 Respiratory Rate 20 17 20 Blood Pressure 127/64 Pulse Oximetry 100 100 93 L 07/25/18 07:12 07/25/18 08:00 12/22/18 08:12 Temperature 98 F Pulse Rate 62 63 63 Respiratory Rate 21 27 H 29 H Blood Pressure 136/65 139/69 Pulse Oximetry 97 95 98 07/25/18 08:43 07/25/18 09:00 07/25/18 09:12 Temperature Pulse Rate 65 63 Respiratory Rate 23 19 Blood Pressure 116/56 L Pulse Oximetry 95 80 L 97 07/25/18 10:00 07/25/18 10:12 07/25/18 11:00 Temperature Pulse Rate 66 65 68 Respiratory Rate 21 27 H 28 H Blood Pressure 128/73 Pulse Oximetry 87 L 97 99 07/25/18 11:12 07/25/18 12:00 07/25/18 12:12 Temperature 98 F Pulse Rate 69 63 62 Respiratory Rate 27 H 29 H 28 H Blood Pressure 123/65 121/60 Pulse Oximetry 98 97 98 Intake & Output 07/24/18 07/25/18 07/25/18 18:59 06:59 18:59 Intake Total 2450 / 2450 2100 / 2100 200 / 200 Output Total 370 / 370 1425 / 1425 Balance 2450 / 2450 1730 / 1730 -1225 / -1225 Weight 83.461 kg 88.5 kg 88.5 kg Intake: IV 2450 / 2450 1100 / 1100 100 / 100 NS Inj 1,000 ML @ 100 mls/hr IV 1000 / 1000 .CONT .Q10H [facility] Rx#:[id number] Ofirmev Inj 1,000 mg In 100 ml 100 / 100 @ 400 mls/hr IV.SIG ONCE ONE Rx #:[id number] Maxipime Inj 2,000 MG In NS Inj 100 / 100 100 / 100 100 ML @ 200 mls/hr IV.SIG Q12H [facility] Rx#:[id number] Zosyn 4.5 GM Premix 4.5 gm In 100 / 100 100 ml @ 200 mls/hr IV.SIG STAT STA Rx#:[id number] NS Inj 1,000 ML @ 1000 mls/hr 2000 / 1999 IV.SIG BOLUS [facility] Rx#:[id number] Vancomycin Inj 1,000 MG In NS 250 / 250 Inj 250 ML @ 250 mls/hr IV.SIG STAT STA Rx#:[id number] Oral 0 / 0 100 / 100 Anesthesia Amount 1000 / 1000 Output: Estimated Blood Loss 20 / 20 Urine Amount (Catheter) 350 / 350 1375 / 1375 Indwelling Temp Sensing 350 / 350 1375 / 1375 Catheter Wound Vac Amount 50 / 50 Left Knee 50 / 50 Other: Mode Setting Left Calf Continuous Left Knee Continuous Continuous Weight On Admission 88.5 kg Result Diagrams: 07/25/18 06:26 07/25/18 06:26 Objective Remarks: HEENT/Neuro: No pallor or icterus, tongue moist, YOLANDA, Awake alert oriented 3 , nonfocal grossly, moving all 4 extremities Neck: No JVD Chest/pulmonary: CTA bilaterally Cardiovascular: S1-S2 regular no gallop or murmur GI/abdomen: Soft, nontender, bowel sounds present Extremities: Warm bilaterally, dressing over left below-knee amputation site clean dry and intact. Drain in place. 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(s): E11.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 Status: Acute (3) Acute renal failure Code(s): N17.9 - Acute kidney failure, unspecified Status: Acute (4) Transaminitis Code(s): R74.0 - Nonspecific elevation of levels of transaminase and lactic acid dehydrogenase [LDH] Status: Acute (5) Sepsis Code(s): A41.9 - Sepsis, unspecified organism Status: Acute (6) Cellulitis and abscess of foot Code(s): L03.119 - Cellulitis of unspecified part of limb; L02.619 - Cutaneous abscess of unspecified foot Status: Acute (7) Osteomyelitis Code(s): M86.9 - Osteomyelitis, unspecified Status: Acute (8) Diabetes mellitus Code(s): E11.9 - Type 2 diabetes mellitus without complications Status: Acute (9) Septic shock Code(s): A41.9 - Sepsis, unspecified organism; R65.21 - Severe sepsis with septic shock Status: Acute - Assessment and Plan Plan: Assessment This is a 77-year-old gentleman previously noted to have a Charcot foot secondary to diabetes mellitus with wound care being performed at home, now presents with gangrene left foot with extensive osteomyelitis and diffuse cellulitis and septic shock. Patient initially requiring vasopressor support, norepinephrine. s/p emergent surgery-left BKA with vascular surgeon Dr. Mayo on 07/24 Plan by systems: Neurologic: Diabetic neuropathy HPatient normally takes gabapentin 800 mg 3 times daily-resume Neuro checks per ICU protocol Cooling blanket for temp greater than 101, secondary to elevated liver enzymes Respiratory: Maintain O2 sat greater than 92% Incentive spirometry every hour while awake postoperatively Provide O2 via nasal cannula currently at 2 L/min O2 saturation 97% ABG and chest x-ray when clinically indicated Cardiovascular: Coronary artery disease status post CABG Hypertension Hypotension - resolved Labetalol 10 mg every 6 hours as needed for systolic greater than 160mmHg Hydralazine 20 mg every 4 hours as needed for systolic blood pressure greater than 160mmHg Continue carvedilol 2.5 mg BID Off levophed Renal: Chronic kidney disease Avoid nephrotoxins Hold lisinopril, patient normally takes 10 mg twice daily-creatinine 2.0 -- Strict I/Os FEN/GI: Hyponatremia Transaminitis Metabolic acidosis Resume diet 1800 ADA Monitor CMP Hold atorvastatin home med at this time secondary to elevated liver enzyme Obtain lipid panel Hold metformin home dosing by patient secondary to metabolic acidosis Heme/ID: Osteomyelitis Cellulitis Gangrene/infected left foot Follow-up wound culture Follow-up blood cultures x2 Vascular consult Dr. Mayo. s/p left below knee amputation Patient received vancomycin and Zosyn in the emergency room continue prophylactic antibiotics Initiate cefepime 2 g every 12 hours (renal dosing) and vancomycin Antibiotics per ID. F/U cultures Endocrine: Diabetes mellitus Glucose monitoring per ICU protal Obtain hemoglobin A1c evaluate compliance -- SSI Prophylaxis: GI Prophylaxis Famotidine DVT Prophylaxis -- SCDs Start subcutaneous heparin when okay with Dr. Swann Lines: Left subclavian IV placed in the ED , peripheral IVs x2 Consult and transfer to hospitalist service for further medical management. Patient is off pressors now and maintaining blood pressure. Please reconsult critical care if needed. (3) Acute renal failure Qualifiers: Acute renal failure type: unspecified Qualified Code(s): N17.9 - Acute kidney failure, unspecified (5) Sepsis Qualifiers: Sepsis type: sepsis due to unspecified organism Qualified Code(s): A41.9 - Sepsis, unspecified organism (7) Osteomyelitis Qualifiers: Osteomyelitis type: unspecified type Osteomyelitis location: foot Laterality : left Qualified Code(s): M86.9 - Osteomyelitis, unspecified
--- NOTE | 2018-07-25 17:54 | P.PNVS ---
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 essentially of the left foot about 3 inches above the ankle Tissue planes were opened bluntly and irrigated and wound VAC was placed Patient will undergo bedside change of wound vacs and then hopefully by the end of next week will undergo second stage of the procedure which consists of higher below-knee amputation and closure Depending on how patient response to antibiotics may take a little longer to get there as well At this point nothing to add to care patient should remain on wound VAC that should be changed twice a week Objective Vital Signs / I&O: Vital Signs 07/24/18 19:08 07/24/18 19:15 07/24/18 19:30 Temperature 97.7 F Pulse Rate 69 65 64 Respiratory Rate 12 17 17 Blood Pressure 104/57 L 110/56 L 100/55 L Pulse Oximetry 93 L 100 98 07/24/18 19:45 07/24/18 20:00 07/24/18 20:15 Temperature 98.1 F Pulse Rate 63 63 62 Respiratory Rate 16 17 12 Blood Pressure 97/52 L 108/55 L Pulse Oximetry 98 97 98 07/24/18 20:23 07/24/18 20:30 07/24/18 20:45 Temperature 98.3 F Pulse Rate 61 Respiratory Rate 12 14 Blood Pressure 118/55 L Pulse Oximetry 97 98 07/24/18 21:21 07/24/18 21:33 07/24/18 22:00 Temperature 98 F Pulse Rate 65 63 Respiratory Rate 22 19 Blood Pressure Pulse Oximetry 95 97 97 07/24/18 22:12 07/24/18 22:13 07/24/18 22:40 Temperature Pulse Rate 63 Respiratory Rate 18 Blood Pressure 114/60 Pulse Oximetry 98 98 96 07/24/18 23:00 07/24/18 23:12 07/25/18 00:00 Temperature Pulse Rate 63 60 60 Respiratory Rate 21 16 17 Blood Pressure 132/63 Pulse Oximetry 99 98 99 07/25/18 00:12 07/25/18 01:00 07/25/18 01:12 Temperature Pulse Rate 59 L 57 L 57 L Respiratory Rate 17 16 17 Blood Pressure 106/53 L 132/63 Pulse Oximetry 98 99 99 07/25/18 02:00 07/25/18 02:12 07/25/18 03:00 Temperature Pulse Rate 57 L 59 L 62 Respiratory Rate 17 19 18 Blood Pressure 125/65 Pulse Oximetry 100 100 99 07/25/18 03:12 07/25/18 04:00 07/25/18 04:12 Temperature 97.9 F Pulse Rate 63 62 60 Respiratory Rate 26 H 19 20 Blood Pressure 132/71 130/60 Pulse Oximetry 99 99 100 07/25/18 05:00 07/25/18 05:12 07/25/18 06:00 Temperature Pulse Rate 59 L 60 60 Respiratory Rate 17 15 20 Blood Pressure 125/64 Pulse Oximetry 100 100 100 07/25/18 06:12 07/25/18 07:00 07/25/18 07:12 Temperature Pulse Rate 61 63 62 Respiratory Rate 17 20 21 Blood Pressure 127/64 136/65 Pulse Oximetry 100 93 L 97 07/25/18 08:00 07/25/18 08:12 07/25/18 08:43 Temperature 98 F Pulse Rate 63 63 Respiratory Rate 27 H 29 H Blood Pressure 139/69 Pulse Oximetry 95 98 95 07/25/18 09:00 07/25/18 09:12 07/25/18 10:00 Temperature Pulse Rate 65 63 66 Respiratory Rate 23 19 21 Blood Pressure 116/56 L Pulse Oximetry 80 L 97 87 L 07/25/18 10:12 07/25/18 11:00 07/25/18 11:12 Temperature 98 F Pulse Rate 65 68 69 Respiratory Rate 27 H 28 H 27 H Blood Pressure 128/73 123/65 Pulse Oximetry 97 99 98 07/25/18 12:00 07/25/18 12:12 07/25/18 13:00 Temperature Pulse Rate 63 62 61 Respiratory Rate 29 H 28 H 31 H Blood Pressure 121/60 Pulse Oximetry 97 98 97 07/25/18 13:12 07/25/18 14:00 07/25/18 14:12 Temperature Pulse Rate 61 61 60 Respiratory Rate 28 H 23 25 H Blood Pressure 139/69 108/59 L Pulse Oximetry 97 98 96 07/25/18 15:00 07/25/18 15:12 07/25/18 16:00 Temperature 98 F Pulse Rate 58 L 56 L 56 L Respiratory Rate 19 21 22 Blood Pressure 130/62 Pulse Oximetry 97 97 98 07/25/18 16:12 07/25/18 17:00 Temperature Pulse Rate 56 L 59 L Respiratory Rate 29 H 28 H Blood Pressure 144/72 H Pulse Oximetry 99 99 Intake & Output 07/24/18 07/25/18 07/25/18 18:59 06:59 18:59 Intake Total 2450 / 2450 2100 / 2100 200 / 200 Output Total 370 / 370 1425 / 1425 Balance 2450 / 2450 1730 / 1730 -1225 / -1225 Weight 83.461 kg 88.5 kg 88.5 kg Intake: IV 2450 / 2450 1100 / 1100 100 / 100 NS Inj 1,000 ML @ 100 mls/hr IV 1000 / 1000 .CONT .Q10H [facility] Rx#:[id number] Ofirmev Inj 1,000 mg In 100 ml 100 / 100 @ 400 mls/hr IV.SIG ONCE ONE Rx #:[id number] Maxipime Inj 2,000 MG In NS Inj 100 / 100 100 / 100 100 ML @ 200 mls/hr IV.SIG Q12H [facility] Rx#:[id number] Zosyn 4.5 GM Premix 4.5 gm In 100 / 100 100 ml @ 200 mls/hr IV.SIG STAT STA Rx#:[id number] NS Inj 1,000 ML @ 1000 mls/hr 2000 / 1999 IV.SIG BOLUS [facility] Rx#:[id number] Vancomycin Inj 1,000 MG In NS 250 / 250 Inj 250 ML @ 250 mls/hr IV.SIG STAT STA Rx#:[id number] Oral 0 / 0 100 / 100 Anesthesia Amount 1000 / 1000 Output: Estimated Blood Loss 20 / 20 Urine Amount (Catheter) 350 / 350 1375 / 1375 Indwelling Temp Sensing 350 / 350 1375 / 1375 Catheter Wound Vac Amount 50 / 50 Left Knee 50 / 50 Other: Mode Setting Left Calf Continuous Left Knee Continuous Continuous Weight On Admission 88.5 kg Laboratory Results - last 24 hr 07/24/18 07/24/18 07/24/18 13:40 18:46 18:46 WBC RBC Hgb Hct MCV MCH MCHC RDW Plt Count MPV Neut % (Auto) Lymph % (Auto) [place] % (Auto) Eos % (Auto) Baso % (Auto) Neut # (Auto) Lymph # (Auto) [place] # (Auto) Eos # (Auto) Baso # (Auto) WBC Differential Differential Comment Sodium Potassium Chloride Carbon Dioxide Anion Gap BUN Creatinine Estimated GFR POC Glucose Random Glucose Hemoglobin A1c 7.9 H Lactic Acid 0.9 Calcium Phosphorus Magnesium Total Bilirubin AST ALT Alkaline Phosphatase Total Protein Albumin Nasal Screen MRSA (PCR) Blood Type O Positive Antibody Screen Negative MTS Gel Crossmatch See Detail 07/24/18 07/24/18 07/24/18 19:23 22:00 22:06 WBC RBC Hgb Hct MCV MCH MCHC RDW Plt Count MPV Neut % (Auto) Lymph % (Auto) [place] % (Auto) Eos % (Auto) Baso % (Auto) Neut # (Auto) Lymph # (Auto) [place] # (Auto) Eos # (Auto) Baso # (Auto) WBC Differential Differential Comment Sodium Potassium Chloride Carbon Dioxide Anion Gap BUN Creatinine Estimated GFR POC Glucose 151 H 156 H Random Glucose Hemoglobin A1c Lactic Acid Calcium Phosphorus Magnesium Total Bilirubin AST ALT Alkaline Phosphatase Total Protein Albumin Nasal Screen MRSA (PCR) Not detected Blood Type Antibody Screen MTS Gel Crossmatch 07/25/18 07/25/18 07/25/18 02:47 06:26 06:26 WBC 14.0 H RBC 2.92 L Hgb 8.2 L Hct 24.1 L MCV 82.4 MCH 28.0 MCHC 34.0 RDW 16.4 Plt Count 412 MPV 7.8 Neut % (Auto) 81.5 H Lymph % (Auto) 5.5 L [place] % (Auto) 10.0 H Eos % (Auto) 2.8 Baso % (Auto) 0.2 Neut # (Auto) 11.4 H Lymph # (Auto) 0.8 L [place] # (Auto) 1.4 H Eos # (Auto) 0.4 Baso # (Auto) 0.0 WBC Differential . Differential Comment Auto diff final Sodium 140 Potassium 4.2 Chloride 111 H D Carbon Dioxide 20.1 L Anion Gap 9 BUN 49 H Creatinine 1.34 H Estimated GFR 52 L POC Glucose 109 Random Glucose 76 Hemoglobin A1c Lactic Acid Calcium 8.0 L D Phosphorus 4.4 Magnesium 2.2 Total Bilirubin 0.4 AST 52 H ALT 92 H Alkaline Phosphatase 209 H Total Protein 6.3 L D Albumin 1.9 L Nasal Screen MRSA (PCR) Blood Type Antibody Screen MTS Gel Crossmatch 12/22/18 12/22/18 12/22/18 06:26 09:16 13:01 WBC RBC Hgb Hct MCV MCH MCHC RDW Plt Count MPV Neut % (Auto) Lymph % (Auto) [place] % (Auto) Eos % (Auto) Baso % (Auto) Neut # (Auto) Lymph # (Auto) [place] # (Auto) Eos # (Auto) Baso # (Auto) WBC Differential Differential Comment Sodium Potassium Chloride Carbon Dioxide Anion Gap BUN Creatinine Estimated GFR POC Glucose 83 154 H Random Glucose Hemoglobin A1c Lactic Acid 0.2 L Calcium Phosphorus Magnesium Total Bilirubin AST ALT Alkaline Phosphatase Total Protein Albumin Nasal Screen MRSA (PCR) Blood Type Antibody Screen MTS Gel Crossmatch Microbiology 07/24/18 14:50 Urine Culture - Preliminary Clean Catch Urine No growth in 24 hours 07/24/18 13:35 Aerobic Blood Culture - Preliminary Blood - Peripheral Staphylococcus aureus Anaerobic Blood Culture - Preliminary gram positive cocci 07/24/18 13:45 Gram Stain - Final Wound - Foot Wound Culture - Preliminary Staphylococcus aureus gram negative rods gamma hemolytic streptococci 07/24/18 13:40 Aerobic Blood Culture - Preliminary Blood - Peripheral No growth in 1 day Anaerobic Blood Culture - Preliminary gram positive cocci Impressions Chest X-Ray 07/24/18 13:35 CONCLUSION: Mild interstitial edema Parenchymal changes left base that could be inflammatory Foot CT 07/24/18 13:35 CONCLUSION: 1. Extensive erosive changes involving the bases of the second, third, fourth and fifth metatarsals as well as the cuboid bone in the cuneiforms. Erosive changes are also noted involving the head of the right second metatarsal. Erosive changes are also noted involving the anterior and mid portions of the talus and the anterior aspect of the calcaneus. There is a also erosive change involving the anterior aspect of the distal tibia adjacent to the tibiotalar joint. Fluid and air are noted throughout the midfoot and extending proximally into the anterior ankle system with extensive cellulitis and deep soft tissue abscess. The largest of subcutaneous abscess is noted along the dorsal aspect of the proximal foot laterally and measures 4.3 cm. The findings are consistent with extensive osteomyelitis as well as diffuse cellulitis and deep soft tissue abscess collections.
[2018-07-25] MEDS: glipiZIDE 10 MG Tablet PO SCH (20:51)
[2018-07-25] MEDS ORDERED: Lisinopril 10 MG Tablet PO SCH (21:00)
--- NOTE | 2018-07-26 00:55 | ECG ---
Date Performed: 07/24/2018 Time Performed: 14:09:56 PTAGE: 77 years EKG: Sinus rhythm MODERATE INTRAVENTRICULAR CONDUCTION DELAY ABNORMAL ECG INTERPRETATION BASED ON A DEFAULT AGE OF 40 YEARS Since the PREVIOUS TRACING , no significant change noted DOCTOR: Darnell Ohara Interpretating Date/Time 07/26/2018 00:54:05
[2018-07-26] MEDS: oxyCODONE/Acetaminophen 10/325 Tablet PO PRN (02:33)
[2018-07-26] MEDS: Insulin NovoLOG Aspart Correctional Sugar Inj SQ SCH ×5 (03:34→21:08)
[2018-07-26] MEDS: Chlorhexidine Gluconate 2% 1 Pack (2 Cloths) TOPICAL SCH (04:56)
--- NOTE | 2018-07-26 06:47 | P.PNVS ---
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 essentially of the left foot about 3 inches above the ankle Tissue planes were opened bluntly and irrigated and wound VAC was placed Patient will undergo bedside change of wound vacs and then hopefully by the end of next week will undergo second stage of the procedure which consists of higher below-knee amputation and closure Depending on how patient response to antibiotics may take a little longer to get there as well At this point nothing to add to care patient should remain on wound VAC that should be changed twice a week 07/26/2018 Patient is awake alert and oriented Wound VAC drainage is starting to clear up Awaiting tissue culture OR culture results ID help is greatly appreciated We will keep changing wound vacs at the bedside and patient will probably go by the end of the week for definitive second stage closure Can transfer to floor anytime Objective Vital Signs / I&O: Vital Signs 07/25/18 07:00 07/25/18 07:12 07/25/18 08:00 Temperature 98 F Pulse Rate 63 62 63 Respiratory Rate 20 21 27 H Blood Pressure 136/65 Pulse Oximetry 93 L 97 95 07/25/18 08:12 07/25/18 08:43 07/25/18 09:00 Temperature Pulse Rate 63 65 Respiratory Rate 29 H 23 Blood Pressure 139/69 Pulse Oximetry 98 95 80 L 07/25/18 09:12 07/25/18 10:00 07/25/18 10:12 Temperature Pulse Rate 63 66 65 Respiratory Rate 19 21 27 H Blood Pressure 116/56 L 128/73 Pulse Oximetry 97 87 L 97 07/25/18 11:00 07/25/18 11:12 07/25/18 12:00 Temperature 98 F Pulse Rate 68 69 63 Respiratory Rate 28 H 27 H 29 H Blood Pressure 123/65 Pulse Oximetry 99 98 97 07/25/18 12:12 07/25/18 13:00 07/25/18 13:12 Temperature Pulse Rate 62 61 61 Respiratory Rate 28 H 31 H 28 H Blood Pressure 121/60 139/69 Pulse Oximetry 98 97 97 07/25/18 14:00 07/25/18 14:12 07/25/18 15:00 Temperature Pulse Rate 61 60 58 L Respiratory Rate 23 25 H 19 Blood Pressure 108/59 L Pulse Oximetry 98 96 97 07/25/18 15:12 07/25/18 16:00 07/25/18 16:12 Temperature 98 F Pulse Rate 56 L 56 L 56 L Respiratory Rate 21 22 29 H Blood Pressure 130/62 144/72 H Pulse Oximetry 97 98 99 07/25/18 17:00 07/25/18 17:12 07/25/18 18:00 Temperature Pulse Rate 59 L 60 60 Respiratory Rate 28 H 24 27 H Blood Pressure 153/76 H Pulse Oximetry 99 99 96 07/25/18 18:12 07/25/18 19:00 07/25/18 19:12 Temperature Pulse Rate 61 65 66 Respiratory Rate 30 H 31 H 31 H Blood Pressure 147/78 H 139/87 Pulse Oximetry 98 98 98 07/25/18 19:56 07/25/18 20:00 07/25/18 20:12 Temperature 97.5 F L Pulse Rate 65 66 Respiratory Rate 18 21 21 Blood Pressure 110/60 Pulse Oximetry 98 95 07/25/18 20:23 07/25/18 21:00 07/25/18 21:12 Temperature Pulse Rate 63 58 L Respiratory Rate 30 H 18 Blood Pressure 137/69 Pulse Oximetry 96 99 98 07/25/18 22:00 07/25/18 22:12 07/25/18 23:00 Temperature Pulse Rate 58 L 57 L 58 L Respiratory Rate 19 19 19 Blood Pressure 123/69 Pulse Oximetry 99 98 98 07/25/18 23:12 07/25/18 23:43 07/26/18 00:00 Temperature 97.9 F Pulse Rate 59 L 59 L Respiratory Rate 19 18 20 Blood Pressure 142/74 H Pulse Oximetry 99 98 07/26/18 00:12 07/26/18 01:00 07/26/18 01:12 Temperature Pulse Rate 60 62 63 Respiratory Rate 20 19 20 Blood Pressure 136/74 141/73 H Pulse Oximetry 99 98 98 07/26/18 02:00 07/26/18 02:12 07/26/18 03:00 Temperature Pulse Rate 64 65 70 Respiratory Rate 20 20 28 H Blood Pressure Pulse Oximetry 97 97 98 07/26/18 03:12 07/26/18 03:20 07/26/18 03:34 Temperature Pulse Rate 66 67 Respiratory Rate 22 22 18 Blood Pressure 147/80 H Pulse Oximetry 98 98 07/26/18 04:00 Temperature 97.9 F Pulse Rate 64 Respiratory Rate 22 Blood Pressure Pulse Oximetry 95 Intake & Output 07/25/18 07/25/18 07/26/18 06:59 18:59 06:59 Intake Total 2100 / 2100 1800 / 1800 340 / 340 Output Total 370 / 370 2985 / 2985 1350 / 1350 Balance 1730 / 1730 -1185 / -1185 -1010 / -1010 Weight 88.5 kg 88.5 kg 89.5 kg Intake: IV 1100 / 1100 1100 / 1100 100 / 100 NS Inj 1,000 ML @ 100 mls/hr IV 1000 / 1000 1000 / 1000 .CONT .Q10H [facility] Rx#:[id number] Maxipime Inj 2,000 MG In NS Inj 100 / 100 100 / 100 100 / 100 100 ML @ 200 mls/hr IV.SIG Q12H [facility] Rx#:[id number] Oral 0 / 0 700 / 700 240 / 240 Anesthesia Amount 1000 / 1000 Output: Estimated Blood Loss 20 / 20 Urine Amount (Catheter) 350 / 350 2875 / 2875 1300 / 1300 Indwelling Temp Sensing 350 / 350 2875 / 2875 1300 / 1300 Catheter Wound Vac Amount 110 / 110 50 / 50 Left Knee 110 / 110 50 / 50 Other: Mode Setting Left Calf Continuous Left Knee Continuous Continuous Continuous # Incontinent Bowel Movements 0 Weight On Admission 88.5 kg Laboratory Results - last 24 hr 07/24/18 07/25/18 07/25/18 13:40 06:26 06:26 WBC 14.0 H RBC 2.92 L Hgb 8.2 L Hct 24.1 L MCV 82.4 MCH 28.0 MCHC 34.0 RDW 16.4 Plt Count 412 MPV 7.8 Neut % (Auto) 81.5 H Lymph % (Auto) 5.5 L [place] % (Auto) 10.0 H Eos % (Auto) 2.8 Baso % (Auto) 0.2 Neut # (Auto) 11.4 H Lymph # (Auto) 0.8 L [place] # (Auto) 1.4 H Eos # (Auto) 0.4 Baso # (Auto) 0.0 WBC Differential . Differential Comment Auto diff final Sodium 140 Potassium 4.2 Chloride 111 H D Carbon Dioxide 20.1 L Anion Gap 9 BUN 49 H Creatinine 1.34 H Estimated GFR 52 L POC Glucose Random Glucose 76 Hemoglobin A1c 7.9 H Lactic Acid Calcium 8.0 L D Phosphorus 4.4 Magnesium 2.2 Total Bilirubin 0.4 AST 52 H ALT 92 H Alkaline Phosphatase 209 H Total Protein 6.3 L D Albumin 1.9 L 07/25/18 07/25/18 07/25/18 06:26 09:16 13:01 WBC RBC Hgb Hct MCV MCH MCHC RDW Plt Count MPV Neut % (Auto) Lymph % (Auto) [place] % (Auto) Eos % (Auto) Baso % (Auto) Neut # (Auto) Lymph # (Auto) [place] # (Auto) Eos # (Auto) Baso # (Auto) WBC Differential Differential Comment Sodium Potassium Chloride Carbon Dioxide Anion Gap BUN Creatinine Estimated GFR POC Glucose 83 154 H Random Glucose Hemoglobin A1c Lactic Acid 0.2 L Calcium Phosphorus Magnesium Total Bilirubin AST ALT Alkaline Phosphatase Total Protein Albumin 07/25/18 07/25/18 07/26/18 17:50 21:05 03:02 WBC RBC Hgb Hct MCV MCH MCHC RDW Plt Count MPV Neut % (Auto) Lymph % (Auto) [place] % (Auto) Eos % (Auto) Baso % (Auto) Neut # (Auto) Lymph # (Auto) [place] # (Auto) Eos # (Auto) Baso # (Auto) WBC Differential Differential Comment Sodium Potassium Chloride Carbon Dioxide Anion Gap BUN Creatinine Estimated GFR POC Glucose 205 H 182 H 120 H Random Glucose Hemoglobin A1c Lactic Acid Calcium Phosphorus Magnesium Total Bilirubin AST ALT Alkaline Phosphatase Total Protein Albumin 07/26/18 03:23 WBC RBC Hgb Hct MCV MCH MCHC RDW Plt Count MPV Neut % (Auto) Lymph % (Auto) [place] % (Auto) Eos % (Auto) Baso % (Auto) Neut # (Auto) Lymph # (Auto) [place] # (Auto) Eos # (Auto) Baso # (Auto) WBC Differential Differential Comment Sodium Potassium Chloride Carbon Dioxide Anion Gap BUN 30 H Creatinine 1.01 Estimated GFR 72 L POC Glucose Random Glucose Hemoglobin A1c Lactic Acid Calcium Phosphorus Magnesium Total Bilirubin AST ALT Alkaline Phosphatase Total Protein Albumin Microbiology 07/24/18 14:50 Urine Culture - Preliminary Clean Catch Urine No growth in 24 hours 07/24/18 13:35 Aerobic Blood Culture - Preliminary Blood - Peripheral Staphylococcus aureus Anaerobic Blood Culture - Preliminary gram positive cocci 07/24/18 13:45 Gram Stain - Final Wound - Foot Wound Culture - Preliminary Staphylococcus aureus gram negative rods gamma hemolytic streptococci 07/24/18 13:40 Aerobic Blood Culture - Preliminary Blood - Peripheral No growth in 1 day Anaerobic Blood Culture - Preliminary gram positive cocci Impressions Chest X-Ray 07/24/18 13:35 CONCLUSION: Mild interstitial edema Parenchymal changes left base that could be inflammatory Foot CT 07/24/18 13:35 CONCLUSION: 1. Extensive erosive changes involving the bases of the second, third, fourth and fifth metatarsals as well as the cuboid bone in the cuneiforms. Erosive changes are also noted involving the head of the right second metatarsal. Erosive changes are also noted involving the anterior and mid portions of the talus and the anterior aspect of the calcaneus. There is a also erosive change involving the anterior aspect of the distal tibia adjacent to the tibiotalar joint. Fluid and air are noted throughout the midfoot and extending proximally into the anterior ankle system with extensive cellulitis and deep soft tissue abscess. The largest of subcutaneous abscess is noted along the dorsal aspect of the proximal foot laterally and measures 4.3 cm. The findings are consistent with extensive osteomyelitis as well as diffuse cellulitis and deep soft tissue abscess collections.
[2018-07-26] MEDS: Sod Chloride 0.9% Inj 1,000 ML IV.CONT SCH (08:31)
[2018-07-26] MEDS: glipiZIDE 10 MG Tablet PO SCH ×2 (08:31→20:56)
[2018-07-26] MEDS: Senna/Docusate Sodium 8.6/50 MG Tablet PO SCH ×2 (08:31→20:56)
[2018-07-26] MEDS: Famotidine PF Inj 20 MG/2 ML Vial IV.PUSH SCH ×2 (08:31→20:57)
[2018-07-26] MEDS: Gabapentin 400 MG Capsule PO SCH ×3 (08:31→17:13)
--- NOTE | 2018-07-26 11:00 | P.PN ---
Subjective Interval history: Nursing denies any acute changes overnight. Patient himself reports pain only when he is trying to move his leg. No fevers overnight. Physical Exam Vital signs: Vital Signs 07/25/18 11:00 07/25/18 11:12 07/25/18 12:00 Temperature 98 F Pulse Rate 68 69 63 Respiratory Rate 28 H 27 H 29 H Blood Pressure 123/65 Pulse Oximetry 99 98 97 07/25/18 12:12 07/25/18 13:00 07/25/18 13:12 Temperature Pulse Rate 62 61 61 Respiratory Rate 28 H 31 H 28 H Blood Pressure 121/60 139/69 Pulse Oximetry 98 97 97 07/25/18 14:00 07/25/18 14:12 07/25/18 15:00 Temperature Pulse Rate 61 60 58 L Respiratory Rate 23 25 H 19 Blood Pressure 108/59 L Pulse Oximetry 98 96 97 07/25/18 15:12 07/25/18 16:00 07/25/18 16:12 Temperature 98 F Pulse Rate 56 L 56 L 56 L Respiratory Rate 21 22 29 H Blood Pressure 130/62 144/72 H Pulse Oximetry 97 98 99 07/25/18 17:00 07/25/18 17:12 07/25/18 18:00 Temperature Pulse Rate 59 L 60 60 Respiratory Rate 28 H 24 27 H Blood Pressure 153/76 H Pulse Oximetry 99 99 96 07/25/18 18:12 07/25/18 19:00 07/25/18 19:12 Temperature Pulse Rate 61 65 66 Respiratory Rate 30 H 31 H 31 H Blood Pressure 147/78 H 139/87 Pulse Oximetry 98 98 98 07/25/18 19:56 07/25/18 20:00 07/25/18 20:12 Temperature 97.5 F L Pulse Rate 65 66 Respiratory Rate 18 21 21 Blood Pressure 110/60 Pulse Oximetry 98 95 07/25/18 20:23 07/25/18 21:00 07/25/18 21:12 Temperature Pulse Rate 63 58 L Respiratory Rate 30 H 18 Blood Pressure 137/69 Pulse Oximetry 96 99 98 07/25/18 22:00 07/25/18 22:12 07/25/18 23:00 Temperature Pulse Rate 58 L 57 L 58 L Respiratory Rate 19 19 19 Blood Pressure 123/69 Pulse Oximetry 99 98 98 07/25/18 23:12 07/25/18 23:43 07/26/18 00:00 Temperature 97.9 F Pulse Rate 59 L 59 L Respiratory Rate 19 18 20 Blood Pressure 142/74 H Pulse Oximetry 99 98 07/26/18 00:12 07/26/18 01:00 07/26/18 01:12 Temperature Pulse Rate 60 62 63 Respiratory Rate 20 19 20 Blood Pressure 136/74 141/73 H Pulse Oximetry 99 98 98 07/26/18 02:00 07/26/18 02:12 07/26/18 03:00 Temperature Pulse Rate 64 65 70 Respiratory Rate 20 20 28 H Blood Pressure Pulse Oximetry 97 97 98 07/26/18 03:12 07/26/18 03:20 07/26/18 03:34 Temperature Pulse Rate 66 67 Respiratory Rate 22 22 18 Blood Pressure 147/80 H Pulse Oximetry 98 98 07/26/18 04:00 07/26/18 04:12 07/26/18 05:00 Temperature 97.9 F Pulse Rate 64 65 63 Respiratory Rate 22 20 21 Blood Pressure 136/72 Pulse Oximetry 95 95 98 07/26/18 05:12 07/26/18 06:00 07/26/18 06:12 Temperature Pulse Rate 66 61 62 Respiratory Rate 18 20 19 Blood Pressure 146/73 H 140/69 Pulse Oximetry 99 96 97 07/26/18 07:00 07/26/18 07:12 07/26/18 08:00 Temperature Pulse Rate 61 60 63 Respiratory Rate 19 20 23 Blood Pressure 138/73 Pulse Oximetry 97 98 99 07/26/18 08:12 07/26/18 08:30 07/26/18 09:00 Temperature 98.2 F Pulse Rate 64 63 Respiratory Rate 22 25 H Blood Pressure 158/79 H Pulse Oximetry 98 99 99 07/26/18 09:12 07/26/18 10:00 Temperature Pulse Rate 64 71 Respiratory Rate 18 44 H Blood Pressure 146/80 H Pulse Oximetry 98 98 Intake & Output 07/25/18 07/26/18 07/26/18 18:59 06:59 18:59 Intake Total 1800 / 1800 440 / 440 Output Total 2985 / 2985 1350 / 1350 Balance -1185 / -1185 -910 / -910 Weight 88.5 kg 89.5 kg Intake: IV 1100 / 1100 200 / 200 NS Inj 1,000 ML @ 100 mls/hr IV 1000 / 1000 .CONT .Q10H [facility] Rx#:[id number] Maxipime Inj 2,000 MG In NS Inj 100 / 100 200 / 200 100 ML @ 200 mls/hr IV.SIG Q12H [facility] Rx#:[id number] Oral 700 / 700 240 / 240 Output: Urine Amount (Catheter) 2875 / 2875 1300 / 1300 Indwelling Temp Sensing 2875 / 2875 1300 / 1300 Catheter Wound Vac Amount 110 / 110 50 / 50 Left Knee 110 / 110 50 / 50 Other: Mode Setting Left Knee Continuous Continuous Continuous # Incontinent Bowel Movements 0 Narrative: Left BKA stump in postoperative dressing with wound VAC in place Clear lungs bilaterally, unlabored breathing Heart sounds regular rate and rhythm Sleeping, easily awoken, no acute distress - Urinary Catheter Management Indwelling Temp Sensing Catheter Cath placed during this visit: yes Reason for continuing: Hourly intake/output Insertion date: 07/24/18 Insertion time: 15:09 Results - Labs CBC & Chem 7: 07/25/18 06:26 07/26/18 03:23 Laboratory Results - last 24 hr 07/25/18 07/25/18 07/25/18 13:01 17:50 21:05 BUN Creatinine Estimated GFR POC Glucose 154 H 205 H 182 H 07/26/18 07/26/18 07/26/18 03:02 03:23 08:35 BUN 30 H Creatinine 1.01 Estimated GFR 72 L POC Glucose 120 H 93 Microbiology 07/24/18 14:50 Clean Catch Urine Urine Culture - Final No growth in 48 hours 07/24/18 13:40 Blood - Peripheral Aerobic Blood Culture - Preliminary gram positive cocci 07/24/18 13:40 Blood - Peripheral Anaerobic Blood Culture - Preliminary gram positive cocci 07/24/18 13:45 Wound - Foot Gram Stain - Final 07/24/18 13:45 Wound - Foot Wound Culture - Final Staphylococcus aureus Morganella morganii Enterococcus faecalis 07/24/18 13:35 Blood - Peripheral Aerobic Blood Culture - Preliminary Staphylococcus aureus 07/24/18 13:35 Blood - Peripheral Anaerobic Blood Culture - Preliminary gram positive cocci Assessment and Plan - Plan This is a 77-year-old gentleman previously noted to have a Charcot foot secondary to diabetes mellitus with wound care being performed at home, now presents with gangrene left foot with extensive osteomyelitis and diffuse cellulitis and septic shock. Patient initially requiring vasopressor support, norepinephrine. s/p emergent surgery-left BKA with vascular surgeon Dr. Mayo on 07/24. Sepsis element resolved, now no longer needing pressor support Left foot infection involving gangrene, osteomyelitis and cellulitis Improved now that pt is status post BKA -Wound VAC in place Vancomycin and cefepime per ID who is following at this time -pain control -Wound cultures grew out MSSA, Morganella, Doyle -Leukocytosis improving since admission, continue trending Gram-positive bacteremia Likely secondary to foot infection Repeat blood cultures per ID, abx as above Diabetic neuropathy On gabapentin Coronary artery disease History of CABG Continue home Coreg -Resume home Lipitor, continue baby aspirin CKD Trend BMP, resume lisinopril pending stable values Transaminitis Possibly secondary to shock liver versus fatty liver Improving, trend values, will resume statin for now Heparin
[2018-07-26] MEDS ORDERED: Pharmacy Ordered Lab Info OTHER ONE (13:45)
[2018-07-26] MEDS: Heparin - SQ 10,000 UNITS/ML Vial SQ SCH ×2 (14:26→21:00)
[2018-07-26] MEDS: Vancomycin Inj 1,750 MG in Sodium Chlor 0.9% Inj 500 ML IV.SIG SCH (14:26)
[2018-07-26 15:36] LABS: Baso # (Auto) 0.1 th/mm3 (0.0-0.2); Baso % (Auto) 0.8 % (0.0-2.0); Eos # (Auto) 0.4 th/mm3 (0.0-0.4); Eos % (Auto) 3.7 % (0.0-4.0); Hematocrit 29.4 % (39.0-51.0); Hemoglobin 9.8 gm/dL (13.0-17.0); Lymph % (Auto) 9.1 % (9.0-44.0); Mean Corpuscular HGB Conc 33.4 % (32.0-36.0); Mean Corpuscular Hemoglobin 28.2 pg (27.0-34.0); Mean Corpuscular Volume 84.6 fL (80.0-100.0); Mean Platelet Volume 7.9 fL (7.0-11.0); Mono # (Auto) 1.3 th/mm3 (0.0-0.9); Mono % (Auto) 12.2 % (0.0-8.0); Neut # (Auto) 7.8 th/mm3 (1.8-7.7); Neut % (Auto) 74.2 % (16.0-70.0); Platelet Count 438 th/mm3 (150-450); Red Blood Count 3.48 mil/mm3 (4.50-5.90); Red Cell Distribution Width 17.1 % (11.6-17.2); White Blood Count 10.5 th/mm3 (4.0-11.0)
[2018-07-26 16:00] LABS: Eosinophils 6 % (0-4); Lymphocytes 2 % (9-44); Metamyelocytes 1 % (0-1); Monocytes 7 % (0-8); Myelocytes 3 % (0-0)
[2018-07-26 16:01] LABS: Platelet Estimate Normal (Normal); Platelet Morphology Normal (Normal); RBC Morphology Normal (Normal)
--- NOTE | 2018-07-26 16:37 | P.PNID ---
Subjective Remarks: Patient says he feels okay. Afebrile. No complaints. Culture has staph aureus. 77-year-old white male, who has had a history of wound infection of the left foot. The patient tells me that the wound infection had been present for about a year. It was being followed by podiatry and was having wound dressing changes to the wound. He was noted to have gangrenous changes at the foot and therefore he was referred to the emergency department. The patient's temperature was normal in the emergency department, but his blood pressure was low. At one point the blood pressure was 68 68/44. His white count was elevated at 20.4. The patient has undergone left [id number] amputation. Past Medical History: PAST MEDICAL HISTORY: Diabetes mellitus, hypertension, hypercholesterolemia, coronary artery disease, history of coronary artery bypass graft surgery, history of knee surgery, history of bariatric surgery. Allergies/Adverse Reactions: Allergies No Known Allergies Allergy (Unverified 07/24/18 13:22) Objective Vital Signs 07/25/18 17:00 07/25/18 17:12 07/25/18 18:00 Temperature Pulse Rate 59 L 60 60 Respiratory Rate 28 H 24 27 H Blood Pressure 153/76 H Pulse Oximetry 99 99 96 07/25/18 18:12 07/25/18 19:00 07/25/18 19:12 Temperature Pulse Rate 61 65 66 Respiratory Rate 30 H 31 H 31 H Blood Pressure 147/78 H 139/87 Pulse Oximetry 98 98 98 07/25/18 19:56 07/25/18 20:00 07/25/18 20:12 Temperature 97.5 F L Pulse Rate 65 66 Respiratory Rate 18 21 21 Blood Pressure 110/60 Pulse Oximetry 98 95 07/25/18 20:23 07/25/18 21:00 07/25/18 21:12 Temperature Pulse Rate 63 58 L Respiratory Rate 30 H 18 Blood Pressure 137/69 Pulse Oximetry 96 99 98 07/25/18 22:00 07/25/18 22:12 07/25/18 23:00 Temperature Pulse Rate 58 L 57 L 58 L Respiratory Rate 19 19 19 Blood Pressure 123/69 Pulse Oximetry 99 98 98 07/25/18 23:12 07/25/18 23:43 07/26/18 00:00 Temperature 97.9 F Pulse Rate 59 L 59 L Respiratory Rate 19 18 20 Blood Pressure 142/74 H Pulse Oximetry 99 98 07/26/18 00:12 07/26/18 01:00 07/26/18 01:12 Temperature Pulse Rate 60 62 63 Respiratory Rate 20 19 20 Blood Pressure 136/74 141/73 H Pulse Oximetry 99 98 98 07/26/18 02:00 07/26/18 02:12 07/26/18 03:00 Temperature Pulse Rate 64 65 70 Respiratory Rate 20 20 28 H Blood Pressure Pulse Oximetry 97 97 98 07/26/18 03:12 07/26/18 03:20 07/26/18 03:34 Temperature Pulse Rate 66 67 Respiratory Rate 22 22 18 Blood Pressure 147/80 H Pulse Oximetry 98 98 07/26/18 04:00 07/26/18 04:12 07/26/18 05:00 Temperature 97.9 F Pulse Rate 64 65 63 Respiratory Rate 22 20 21 Blood Pressure 136/72 Pulse Oximetry 95 95 98 07/26/18 05:12 07/26/18 06:00 07/26/18 06:12 Temperature Pulse Rate 66 61 62 Respiratory Rate 18 20 19 Blood Pressure 146/73 H 140/69 Pulse Oximetry 99 96 97 07/26/18 07:00 07/26/18 07:12 07/26/18 08:00 Temperature Pulse Rate 61 60 63 Respiratory Rate 19 20 23 Blood Pressure 138/73 Pulse Oximetry 97 98 99 07/26/18 08:12 07/26/18 08:30 07/26/18 09:00 Temperature 98.2 F Pulse Rate 64 63 Respiratory Rate 22 25 H Blood Pressure 158/79 H Pulse Oximetry 98 99 99 07/26/18 09:12 07/26/18 10:00 Temperature Pulse Rate 64 71 Respiratory Rate 18 44 H Blood Pressure 146/80 H Pulse Oximetry 98 98 Intake & Output 07/25/18 07/26/18 07/26/18 18:59 06:59 18:59 Intake Total 1800 / 1800 440 / 440 1000 / 1000 Output Total 2985 / 2985 1350 / 1350 Balance -1185 / -1185 -910 / -910 1000 / 1000 Weight 88.5 kg 89.5 kg Intake: IV 1100 / 1100 200 / 200 1000 / 1000 NS Inj 1,000 ML @ 100 mls/hr IV 1000 / 1000 .CONT .Q10H [facility] Rx#:[id number] Maxipime Inj 2,000 MG In NS Inj 100 / 100 200 / 200 100 ML @ 200 mls/hr IV.SIG Q12H [facility] Rx#:[id number] Vancomycin Inj 1,750 MG In NS 1000 / 1000 Inj 500 ML @ 250 mls/hr IV.SIG Q24H [facility] Rx#:[id number] Oral 700 / 700 240 / 240 Output: Urine Amount (Catheter) 2875 / 2875 1300 / 1300 Indwelling Temp Sensing 2875 / 2875 1300 / 1300 Catheter Wound Vac Amount 110 / 110 50 / 50 Left Knee 110 / 110 50 / 50 Other: Mode Setting Left Knee Continuous Continuous Continuous # Incontinent Bowel Movements 0 07/26/18 14:48 Blood - Peripheral Aerobic Blood Culture - Pending 07/26/18 14:48 Blood - Peripheral Anaerobic Blood Culture - Pending 07/26/18 14:53 Blood - Peripheral Aerobic Blood Culture - Pending 07/26/18 14:53 Blood - Peripheral Anaerobic Blood Culture - Pending 07/24/18 13:40 Blood - Peripheral Aerobic Blood Culture - Preliminary gram positive cocci 07/24/18 13:40 Blood - Peripheral Anaerobic Blood Culture - Preliminary Staphylococcus aureus 07/24/18 13:35 Blood - Peripheral Aerobic Blood Culture - Preliminary Staphylococcus aureus 07/24/18 13:35 Blood - Peripheral Anaerobic Blood Culture - Preliminary Staphylococcus aureus 07/24/18 14:50 Clean Catch Urine Urine Culture - Final No growth in 48 hours 07/24/18 13:45 Wound - Foot Gram Stain - Final 07/24/18 13:45 Wound - Foot Wound Culture - Final Staphylococcus aureus Morganella morganii Enterococcus faecalis Lab - Hematology Results 07/25/18 07/26/18 06:26 14:53 WBC 14.0 H 10.5 RBC 2.92 L 3.48 L Hgb 8.2 L 9.8 L Hct 24.1 L 29.4 L MCV 82.4 84.6 MCH 28.0 28.2 MCHC 34.0 33.4 RDW 16.4 17.1 Plt Count 412 438 MPV 7.8 7.9 Prelim Diff (Auto) Slide review pending Neut % (Auto) 81.5 H 74.2 H Lymph % (Auto) 5.5 L 9.1 [place] % (Auto) 10.0 H 12.2 H Eos % (Auto) 2.8 3.7 Baso % (Auto) 0.2 0.8 Neut # (Auto) 11.4 H 7.8 H Lymph # (Auto) 0.8 L 1.0 [place] # (Auto) 1.4 H 1.3 H Eos # (Auto) 0.4 0.4 Baso # (Auto) 0.0 0.1 WBC Differential . Manual diff final Seg Neuts % (Manual) 77 H Band Neuts % (Manual) 4 Lymphocytes % (Manual) 2 L Monocytes % (Manual) 7 Eosinophils % (Manual) 6 H Metamyelocytes % (Man) 1 Myelocytes % (Man) 3 H Abs Neuts (Manual) 8.9 H Differential Comment Auto diff final . Platelet Estimate Normal Platelet Morphology Normal RBC Morphology Normal Lab - Chemistry Results 07/24/18 07/24/18 07/24/18 13:40 18:46 19:23 Sodium Potassium Chloride Carbon Dioxide Anion Gap BUN Creatinine Estimated GFR POC Glucose 151 H Random Glucose Hemoglobin A1c 7.9 H Lactic Acid 0.9 Calcium Phosphorus Magnesium Total Bilirubin AST ALT Alkaline Phosphatase Total Protein Albumin 07/24/18 07/25/18 07/25/18 22:06 02:47 06:26 Sodium 140 Potassium 4.2 Chloride 111 H D Carbon Dioxide 20.1 L Anion Gap 9 BUN 49 H Creatinine 1.34 H Estimated GFR 52 L POC Glucose 156 H 109 Random Glucose 76 Hemoglobin A1c Lactic Acid Calcium 8.0 L D Phosphorus 4.4 Magnesium 2.2 Total Bilirubin 0.4 AST 52 H ALT 92 H Alkaline Phosphatase 209 H Total Protein 6.3 L D Albumin 1.9 L 07/25/18 07/25/18 07/25/18 06:26 09:16 13:01 Sodium Potassium Chloride Carbon Dioxide Anion Gap BUN Creatinine Estimated GFR POC Glucose 83 154 H Random Glucose Hemoglobin A1c Lactic Acid 0.2 L Calcium Phosphorus Magnesium Total Bilirubin AST ALT Alkaline Phosphatase Total Protein Albumin 07/25/18 07/25/18 07/26/18 17:50 21:05 03:02 Sodium Potassium Chloride Carbon Dioxide Anion Gap BUN Creatinine Estimated GFR POC Glucose 205 H 182 H 120 H Random Glucose Hemoglobin A1c Lactic Acid Calcium Phosphorus Magnesium Total Bilirubin AST ALT Alkaline Phosphatase Total Protein Albumin 07/26/18 07/26/18 07/26/18 03:23 08:35 11:33 Sodium Potassium Chloride Carbon Dioxide Anion Gap BUN 30 H Creatinine 1.01 Estimated GFR 72 L POC Glucose 93 126 H Random Glucose Hemoglobin A1c Lactic Acid Calcium Phosphorus Magnesium Total Bilirubin AST ALT Alkaline Phosphatase Total Protein Albumin 07/26/18 15:54 Sodium Potassium Chloride Carbon Dioxide Anion Gap BUN Creatinine Estimated GFR POC Glucose 123 H Random Glucose Hemoglobin A1c Lactic Acid Calcium Phosphorus Magnesium Total Bilirubin AST ALT Alkaline Phosphatase Total Protein Albumin Imaging: ITS Impressions Chest X-Ray 07/24/18 13:35 CONCLUSION: Mild interstitial edema Parenchymal changes left base that could be inflammatory Foot CT 07/24/18 13:35 CONCLUSION: 1. Extensive erosive changes involving the bases of the second, third, fourth and fifth metatarsals as well as the cuboid bone in the cuneiforms. Erosive changes are also noted involving the head of the right second metatarsal. Erosive changes are also noted involving the anterior and mid portions of the talus and the anterior aspect of the calcaneus. There is a also erosive change involving the anterior aspect of the distal tibia adjacent to the tibiotalar joint. Fluid and air are noted throughout the midfoot and extending proximally into the anterior ankle system with extensive cellulitis and deep soft tissue abscess. The largest of subcutaneous abscess is noted along the dorsal aspect of the proximal foot laterally and measures 4.3 cm. The findings are consistent with extensive osteomyelitis as well as diffuse cellulitis and deep soft tissue abscess collections. Physical Exam: PHYSICAL EXAMINATION: GENERAL: Patient is in no acute distress. HEENT: Head is atraumatic. Extraocular movements grossly intact. Pupils reactive to light. No icterus. Oropharynx: No lesions. NECK: No adenopathy or swelling. LUNGS: Clear breath sounds. HEART: Regular S1, S2. A 2/6 systolic murmur at the left sternal border. ABDOMEN: Benign. Soft, nontender. EXTREMITIES: No clubbing or cyanosis. Left leg is post-below [id number] amputation and has a wound VAC in place. SKIN: No rash. NEUROLOGIC: No gross focal findings. PSYCHIATRIC: Calm and cooperative. Assessment and Plan - Plan IMPRESSION: 1. Septic shock due to staph aureus, likely originating from the gangrenous foot. The patient is status post left [id number]-[id number] amputation for gangrene of the left foot. 2. Leukocytosis, improved. RECOMMENDATIONS: 1. Continue vancomycin. 2. Stop cefepime. 3. Follow the sensitivity and identity of the staph. 4. Follow the repeat blood cultures to check for clearance of the bacteremia.
[2018-07-26] MEDS: Lisinopril 5 MG Tablet PO SCH (17:13)
[2018-07-27] MEDS: Chlorhexidine Gluconate 2% 1 Pack (2 Cloths) TOPICAL SCH (03:50)
[2018-07-27] MEDS: Insulin NovoLOG Aspart Correctional Sugar Inj SQ SCH ×5 (03:50→21:19)
[2018-07-27] MEDS: Heparin - SQ 10,000 UNITS/ML Vial SQ SCH ×3 (05:15→21:20)
[2018-07-27 07:15] LABS: Baso # (Auto) 0.1 th/mm3 (0.0-0.2); Baso % (Auto) 0.9 % (0.0-2.0); Eos # (Auto) 0.3 th/mm3 (0.0-0.4); Eos % (Auto) 2.4 % (0.0-4.0); Hematocrit 30.7 % (39.0-51.0); Hemoglobin 10.3 gm/dL (13.0-17.0); Lymph # (Auto) 1.4 th/mm3 (1.0-4.8); Lymph % (Auto) 10.6 % (9.0-44.0); Mean Corpuscular HGB Conc 33.6 % (32.0-36.0); Mean Corpuscular Hemoglobin 27.6 pg (27.0-34.0); Mean Corpuscular Volume 82.1 fL (80.0-100.0); Mean Platelet Volume 7.9 fL (7.0-11.0); Mono # (Auto) 1.5 th/mm3 (0.0-0.9); Mono % (Auto) 11.2 % (0.0-8.0); Neut # (Auto) 9.7 th/mm3 (1.8-7.7); Neut % (Auto) 74.9 % (16.0-70.0); Platelet Count 524 th/mm3 (150-450); Red Blood Count 3.74 mil/mm3 (4.50-5.90); Red Cell Distribution Width 16.4 % (11.6-17.2)
--- NOTE | 2018-07-27 08:20 | P.PNVS ---
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 essentially of the left foot about 3 inches above the ankle Tissue planes were opened bluntly and irrigated and wound VAC was placed Patient will undergo bedside change of wound vacs and then hopefully by the end of next week will undergo second stage of the procedure which consists of higher below-knee amputation and closure Depending on how patient response to antibiotics may take a little longer to get there as well At this point nothing to add to care patient should remain on wound VAC that should be changed twice a week 07/26/2018 Patient is awake alert and oriented Wound VAC drainage is starting to clear up Awaiting tissue culture OR culture results ID help is greatly appreciated We will keep changing wound vacs at the bedside and patient will probably go by the end of the week for definitive second stage closure Can transfer to floor anytime 07/27/2018 Patient is hemodynamically stable Below-knee amputation site is clean there is no more crepitus in the tissues of the leg and gas gangrene is controlled Cultures positive for Staphylococcus aureus Morganella morganii and Enterococcus faecalis By the end of the week will take patient to the OR for a second stage BKA and closure In the meantime orders for the wound VAC change have been given Objective Vital Signs / I&O: Vital Signs 07/26/18 08:30 07/26/18 09:00 07/26/18 09:12 Temperature 98.2 F Pulse Rate 63 64 Respiratory Rate 25 H 18 Blood Pressure 146/80 H Pulse Oximetry 99 99 98 07/26/18 10:00 07/26/18 12:00 07/26/18 16:00 Temperature 97.6 F 98.5 F Pulse Rate 71 65 77 Respiratory Rate 44 H 17 17 Blood Pressure 150/71 H 158/116 H Pulse Oximetry 98 97 90 L 07/26/18 20:00 07/27/18 00:00 Temperature 98.7 F 99.0 F Pulse Rate 75 72 Respiratory Rate 18 18 Blood Pressure 162/79 H 154/72 H Pulse Oximetry 95 96 Intake & Output 07/26/18 07/27/18 07/27/18 18:59 06:59 18:59 Intake Total 1000 / 1000 1240 / 1240 Output Total 2085 / 2085 2800 / 2800 40 / 40 Balance -1085 / -1085 -1560 / -1560 -40 / -40 Weight 89.5 kg Intake: IV 1000 / 1000 1000 / 1000 NS Inj 1,000 ML @ KVO 30 mls/hr 1000 / 1000 IV.CONT .Q24H [facility] Rx#:[id number] Vancomycin Inj 1,750 MG In NS 1000 / 1000 Inj 500 ML @ 250 mls/hr IV.SIG Q24H [facility] Rx#:[id number] Oral 240 / 240 Output: Urine Amount (Catheter) 1999 2800 / 2800 Indwelling Temp Sensing 1999 2800 / 2800 Catheter Wound Vac Amount 85 / 85 40 / 40 Left Knee 85 / 85 40 / 40 Other: Mode Setting Left Knee Continuous Continuous Continuous Laboratory Results - last 24 hr 07/24/18 07/26/18 07/26/18 18:46 08:35 11:33 WBC RBC Hgb Hct MCV MCH MCHC RDW Plt Count MPV Prelim Diff (Auto) Neut % (Auto) Lymph % (Auto) [place] % (Auto) Eos % (Auto) Baso % (Auto) Neut # (Auto) Lymph # (Auto) [place] # (Auto) Eos # (Auto) Baso # (Auto) WBC Differential Seg Neuts % (Manual) Band Neuts % (Manual) Lymphocytes % (Manual) Monocytes % (Manual) Eosinophils % (Manual) Metamyelocytes % (Man) Myelocytes % (Man) Abs Neuts (Manual) Differential Comment Platelet Estimate Platelet Morphology RBC Morphology BUN Creatinine Estimated GFR POC Glucose 93 126 H Vancomycin Trough MTS Gel Crossmatch See Detail 07/26/18 07/26/18 07/26/18 13:45 14:53 15:54 WBC 10.5 RBC 3.48 L Hgb 9.8 L Hct 29.4 L MCV 84.6 MCH 28.2 MCHC 33.4 RDW 17.1 Plt Count 438 MPV 7.9 Prelim Diff (Auto) Slide review pending Neut % (Auto) 74.2 H Lymph % (Auto) 9.1 [place] % (Auto) 12.2 H Eos % (Auto) 3.7 Baso % (Auto) 0.8 Neut # (Auto) 7.8 H Lymph # (Auto) 1.0 [place] # (Auto) 1.3 H Eos # (Auto) 0.4 Baso # (Auto) 0.1 WBC Differential Manual diff final Seg Neuts % (Manual) 77 H Band Neuts % (Manual) 4 Lymphocytes % (Manual) 2 L Monocytes % (Manual) 7 Eosinophils % (Manual) 6 H Metamyelocytes % (Man) 1 Myelocytes % (Man) 3 H Abs Neuts (Manual) 8.9 H Differential Comment . Platelet Estimate Normal Platelet Morphology Normal RBC Morphology Normal BUN Creatinine Estimated GFR POC Glucose 123 H Vancomycin Trough 12.0 H MTS Gel Crossmatch 07/26/18 07/27/18 07/27/18 19:53 03:50 05:54 WBC RBC Hgb Hct MCV MCH MCHC RDW Plt Count MPV Prelim Diff (Auto) Neut % (Auto) Lymph % (Auto) [place] % (Auto) Eos % (Auto) Baso % (Auto) Neut # (Auto) Lymph # (Auto) [place] # (Auto) Eos # (Auto) Baso # (Auto) WBC Differential Seg Neuts % (Manual) Band Neuts % (Manual) Lymphocytes % (Manual) Monocytes % (Manual) Eosinophils % (Manual) Metamyelocytes % (Man) Myelocytes % (Man) Abs Neuts (Manual) Differential Comment Platelet Estimate Platelet Morphology RBC Morphology BUN 19 H Creatinine 0.89 Estimated GFR 83 L POC Glucose 139 H 117 H Vancomycin Trough MTS Gel Crossmatch 07/27/18 07/27/18 05:54 07:27 WBC 13.0 H RBC 3.74 L Hgb 10.3 L Hct 30.7 L MCV 82.1 MCH 27.6 MCHC 33.6 RDW 16.4 Plt Count 524 H MPV 7.9 Prelim Diff (Auto) Slide review pending Neut % (Auto) 74.9 H Lymph % (Auto) 10.6 [place] % (Auto) 11.2 H Eos % (Auto) 2.4 Baso % (Auto) 0.9 Neut # (Auto) 9.7 H Lymph # (Auto) 1.4 [place] # (Auto) 1.5 H Eos # (Auto) 0.3 Baso # (Auto) 0.1 WBC Differential Seg Neuts % (Manual) Band Neuts % (Manual) Lymphocytes % (Manual) Monocytes % (Manual) Eosinophils % (Manual) Metamyelocytes % (Man) Myelocytes % (Man) Abs Neuts (Manual) Differential Comment . Platelet Estimate Platelet Morphology RBC Morphology BUN Creatinine Estimated GFR POC Glucose 169 H Vancomycin Trough MTS Gel Crossmatch Microbiology 07/24/18 13:40 Aerobic Blood Culture - Preliminary Blood - Peripheral gram positive cocci Anaerobic Blood Culture - Preliminary Staphylococcus aureus 07/24/18 13:35 Aerobic Blood Culture - Preliminary Blood - Peripheral Staphylococcus aureus Anaerobic Blood Culture - Preliminary Staphylococcus aureus 07/24/18 14:50 Urine Culture - Final Clean Catch Urine No growth in 48 hours 07/24/18 13:45 Gram Stain - Final Wound - Foot Wound Culture - Final Staphylococcus aureus Morganella morganii Enterococcus faecalis
[2018-07-27] MEDS: Famotidine PF Inj 20 MG/2 ML Vial IV.PUSH SCH ×2 (08:21→20:38)
[2018-07-27] MEDS: Senna/Docusate Sodium 8.6/50 MG Tablet PO SCH ×2 (08:23→20:38)
[2018-07-27] MEDS: Gabapentin 400 MG Capsule PO SCH ×3 (08:23→17:01)
[2018-07-27] MEDS: glipiZIDE 10 MG Tablet PO SCH ×2 (08:23→20:38)
[2018-07-27] MEDS: Lisinopril 5 MG Tablet PO SCH (08:23)
[2018-07-27] MEDS: Sod Chloride 0.9% Inj 1,000 ML IV.CONT SCH (08:25)
[2018-07-27 10:31] LABS: Eosinophils 4 % (0-4); Lymphocytes 3 % (9-44); Metamyelocytes 6 % (0-1); Monocytes 10 % (0-8); Myelocytes 3 % (0-0)
[2018-07-27 10:32] LABS: Platelet Morphology Normal (Normal)
--- NOTE | 2018-07-27 12:15 | P.PNID ---
Subjective Remarks: Patient says he feels okay. Afebrile. No complaints. Blood culture finalized as MSSA. 77-year-old white male, who has had a history of wound infection of the left foot. The patient tells me that the wound infection had been present for about a year. It was being followed by podiatry and was having wound dressing changes to the wound. He was noted to have gangrenous changes at the foot and therefore he was referred to the emergency department. The patient's temperature was normal in the emergency department, but his blood pressure was low. At one point the blood pressure was 68 68/44. His white count was elevated at 20.4. The patient has undergone left [id number] amputation. Past Medical History: PAST MEDICAL HISTORY: Diabetes mellitus, hypertension, hypercholesterolemia, coronary artery disease, history of coronary artery bypass graft surgery, history of knee surgery, history of bariatric surgery. Allergies/Adverse Reactions: Allergies No Known Allergies Allergy (Unverified 07/24/18 13:22) Objective Vital Signs 07/26/18 16:00 07/26/18 20:00 07/27/18 00:00 Temperature 98.5 F 98.7 F 99.0 F Pulse Rate 77 75 72 Respiratory Rate 17 18 18 Blood Pressure 158/116 H 162/79 H 154/72 H Pulse Oximetry 90 L 95 96 07/27/18 08:00 Temperature 98.4 F Pulse Rate 75 Respiratory Rate 18 Blood Pressure 166/85 H Pulse Oximetry 93 L Intake & Output 07/26/18 07/27/18 07/27/18 18:59 06:59 18:59 Intake Total 1000 / 1000 1240 / 1240 Output Total 2085 / 2085 2800 / 2800 40 / 40 Balance -1085 / -1085 -1560 / -1560 -40 / -40 Weight 89.5 kg Intake: IV 1000 / 1000 1000 / 1000 NS Inj 1,000 ML @ KVO 30 mls/hr 1000 / 1000 IV.CONT .Q24H [facility] Rx#:[id number] Vancomycin Inj 1,750 MG In NS 1000 / 1000 Inj 500 ML @ 250 mls/hr IV.SIG Q24H [facility] Rx#:[id number] Oral 240 / 240 Output: Urine Amount (Catheter) 1999 2800 / 2800 Indwelling Temp Sensing 1999 2800 / 2800 Catheter Wound Vac Amount 85 / 40 / 40 Left Knee / 85 40 / 40 Other: Mode Setting Left Knee Continuous Continuous Continuous 07/26/18 14:48 Blood - Peripheral Aerobic Blood Culture - Preliminary No growth in 1 day 07/26/18 14:48 Blood - Peripheral Anaerobic Blood Culture - Preliminary No growth in 1 day 07/26/18 14:53 Blood - Peripheral Aerobic Blood Culture - Preliminary No growth in 1 day 07/26/18 14:53 Blood - Peripheral Anaerobic Blood Culture - Preliminary No growth in 1 day 07/24/18 13:40 Blood - Peripheral Aerobic Blood Culture - Final Staphylococcus aureus 07/24/18 13:40 Blood - Peripheral Anaerobic Blood Culture - Final Staphylococcus aureus 07/24/18 13:35 Blood - Peripheral Aerobic Blood Culture - Final Staphylococcus aureus 07/24/18 13:35 Blood - Peripheral Anaerobic Blood Culture - Final Staphylococcus aureus 07/24/18 14:50 Clean Catch Urine Urine Culture - Final No growth in 48 hours 07/24/18 13:45 Wound - Foot Gram Stain - Final 07/24/18 13:45 Wound - Foot Wound Culture - Final Staphylococcus aureus Morganella morganii Enterococcus faecalis Lab - Hematology Results 07/26/18 07/27/18 14:53 05:54 WBC 10.5 13.0 H RBC 3.48 L 3.74 L Hgb 9.8 L 10.3 L Hct 29.4 L 30.7 L MCV 84.6 82.1 MCH 28.2 27.6 MCHC 33.4 33.6 RDW 17.1 16.4 Plt Count 438 524 H MPV 7.9 7.9 Prelim Diff (Auto) Slide review pending Slide review pending Neut % (Auto) 74.2 H 74.9 H Lymph % (Auto) 9.1 10.6 [place] % (Auto) 12.2 H 11.2 H Eos % (Auto) 3.7 2.4 Baso % (Auto) 0.8 0.9 Neut # (Auto) 7.8 H 9.7 H Lymph # (Auto) 1.0 1.4 [place] # (Auto) 1.3 H 1.5 H Eos # (Auto) 0.4 0.3 Baso # (Auto) 0.1 0.1 WBC Differential Manual diff final Manual diff final Seg Neuts % (Manual) 77 H 59 Band Neuts % (Manual) 4 15 H Lymphocytes % (Manual) 2 L 3 L Monocytes % (Manual) 7 10 H Eosinophils % (Manual) 6 H 4 Metamyelocytes % (Man) 1 6 H Myelocytes % (Man) 3 H 3 H Abs Neuts (Manual) 8.9 H 10.8 H Differential Comment . . Platelet Estimate Normal High H Platelet Morphology Normal Normal RBC Morphology Normal Lab - Chemistry Results 07/25/18 07/25/18 07/25/18 13:01 17:50 21:05 BUN Creatinine Estimated GFR POC Glucose 154 H 205 H 182 H 07/26/18 07/26/18 07/26/18 03:02 03:23 08:35 BUN 30 H Creatinine 1.01 Estimated GFR 72 L POC Glucose 120 H 93 07/26/18 07/26/18 07/26/18 11:33 15:54 19:53 BUN Creatinine Estimated GFR POC Glucose 126 H 123 H 139 H 07/27/18 07/27/18 07/27/18 03:50 05:54 07:27 BUN 19 H Creatinine 0.89 Estimated GFR 83 L POC Glucose 117 H 169 H 07/27/18 11:23 BUN Creatinine Estimated GFR POC Glucose 211 H Imaging: ITS Impressions Chest X-Ray 07/24/18 13:35 CONCLUSION: Mild interstitial edema Parenchymal changes left base that could be inflammatory Foot CT 07/24/18 13:35 CONCLUSION: 1. Extensive erosive changes involving the bases of the second, third, fourth and fifth metatarsals as well as the cuboid bone in the cuneiforms. Erosive changes are also noted involving the head of the right second metatarsal. Erosive changes are also noted involving the anterior and mid portions of the talus and the anterior aspect of the calcaneus. There is a also erosive change involving the anterior aspect of the distal tibia adjacent to the tibiotalar joint. Fluid and air are noted throughout the midfoot and extending proximally into the anterior ankle system with extensive cellulitis and deep soft tissue abscess. The largest of subcutaneous abscess is noted along the dorsal aspect of the proximal foot laterally and measures 4.3 cm. The findings are consistent with extensive osteomyelitis as well as diffuse cellulitis and deep soft tissue abscess collections. Physical Exam: PHYSICAL EXAMINATION: GENERAL: No acute distress HEENT: Head is atraumatic. Extraocular movements grossly intact. Pupils reactive to light. No icterus. Oropharynx: No lesions. NECK: No adenopathy or swelling. LUNGS: Clear breath sounds. HEART: Regular S1, S2. A 2/6 systolic murmur at the left sternal border. ABDOMEN: Benign. Soft, nontender. EXTREMITIES: No clubbing or cyanosis. Left leg is post-below [id number]-vrhk amputation and has a wound VAC in place. SKIN: No rash. NEUROLOGIC: No gross focal findings. PSYCHIATRIC: Calm and cooperative. Assessment and Plan - Plan IMPRESSION: 1. Septic shock due to staph aureus, Originating from the gangrenous foot. The patient is status post left [id number]-[id number] amputation for gangrene of the left foot. 2. Leukocytosis, improved. RECOMMENDATIONS: 1. Stop vancomycin. 2. Begin intravenous ceftriaxone 2 g every 24 hours and treat until August 03. 3. Continue to monitor the repeat blood cultures.
[2018-07-27] MEDS: oxyCODONE/Acetaminophen 10/325 Tablet PO PRN (12:46)
--- NOTE | 2018-07-27 13:39 | P.PN ---
Subjective Interval history: Nursing denies any acute changes overnight. Patient denies any new complaints. Resting comfortably when sleeping. Physical Exam Vital signs: Vital Signs 07/26/18 16:00 07/26/18 20:00 07/27/18 00:00 Temperature 98.5 F 98.7 F 99.0 F Pulse Rate 77 75 72 Respiratory Rate 17 18 18 Blood Pressure 158/116 H 162/79 H 154/72 H Pulse Oximetry 90 L 95 96 07/27/18 08:00 07/27/18 12:00 Temperature 98.4 F 97.8 F Pulse Rate 75 83 Respiratory Rate 18 18 Blood Pressure 166/85 H 163/81 H Pulse Oximetry 93 L 95 Intake & Output 07/26/18 07/27/18 07/27/18 18:59 06:59 18:59 Intake Total 1000 / 1000 1240 / 1240 Output Total 2085 / 2085 2800 / 2800 40 / 40 Balance -1085 / -1085 -1560 / -1560 -40 / -40 Weight 89.5 kg Intake: IV 1000 / 1000 1000 / 1000 NS Inj 1,000 ML @ KVO 30 mls/hr 1000 / 1000 IV.CONT .Q24H [facility] Rx#:[id number] Vancomycin Inj 1,750 MG In NS 1000 / 1000 Inj 500 ML @ 250 mls/hr IV.SIG Q24H [facility] Rx#:[id number] Oral 240 / 240 Output: Urine Amount (Catheter) 1999 2800 / 2800 Indwelling Temp Sensing 1999 2800 / 2800 Catheter Wound Vac Amount 85 / 85 40 / 40 Left Knee 85 / 85 40 / 40 Other: Mode Setting Left Knee Continuous Continuous Continuous Narrative: Sleeping, easily awoken, no acute distress Left BKA stump in postoperative dressing with wound VAC in place Clear lungs bilaterally, unlabored breathing Heart sounds regular rate and rhythm - Urinary Catheter Management Indwelling Temp Sensing Catheter Cath placed during this visit: yes Reason for continuing: Other continuation reason Insertion date: 07/24/18 Insertion time: 15:09 Results - Labs CBC & Chem 7: 07/27/18 05:54 07/27/18 05:54 Laboratory Results - last 24 hr 07/24/18 07/26/18 07/26/18 18:46 13:45 14:53 WBC 10.5 RBC 3.48 L Hgb 9.8 L Hct 29.4 L MCV 84.6 MCH 28.2 MCHC 33.4 RDW 17.1 Plt Count 438 MPV 7.9 Prelim Diff (Auto) Slide review pending Neut % (Auto) 74.2 H Lymph % (Auto) 9.1 Alfalfa % (Auto) 12.2 H Eos % (Auto) 3.7 Baso % (Auto) 0.8 Neut # (Auto) 7.8 H Lymph # (Auto) 1.0 Alfalfa # (Auto) 1.3 H Eos # (Auto) 0.4 Baso # (Auto) 0.1 WBC Differential Manual diff final Seg Neuts % (Manual) 77 H Band Neuts % (Manual) 4 Lymphocytes % (Manual) 2 L Monocytes % (Manual) 7 Eosinophils % (Manual) 6 H Metamyelocytes % (Man) 1 Myelocytes % (Man) 3 H Abs Neuts (Manual) 8.9 H Differential Comment . Platelet Estimate Normal Platelet Morphology Normal RBC Morphology Normal BUN Creatinine Estimated GFR POC Glucose Vancomycin Trough 12.0 H MTS Gel Crossmatch See Detail 07/26/18 07/26/18 07/27/18 15:54 19:53 03:50 WBC RBC Hgb Hct MCV MCH MCHC RDW Plt Count MPV Prelim Diff (Auto) Neut % (Auto) Lymph % (Auto) Alfalfa % (Auto) Eos % (Auto) Baso % (Auto) Neut # (Auto) Lymph # (Auto) Alfalfa # (Auto) Eos # (Auto) Baso # (Auto) WBC Differential Seg Neuts % (Manual) Band Neuts % (Manual) Lymphocytes % (Manual) Monocytes % (Manual) Eosinophils % (Manual) Metamyelocytes % (Man) Myelocytes % (Man) Abs Neuts (Manual) Differential Comment Platelet Estimate Platelet Morphology RBC Morphology BUN Creatinine Estimated GFR POC Glucose 123 H 139 H 117 H Vancomycin Trough MTS Gel Crossmatch 07/27/18 07/27/18 07/27/18 05:54 05:54 07:27 WBC 13.0 H RBC 3.74 L Hgb 10.3 L Hct 30.7 L MCV 82.1 MCH 27.6 MCHC 33.6 RDW 16.4 Plt Count 524 H MPV 7.9 Prelim Diff (Auto) Slide review pending Neut % (Auto) 74.9 H Lymph % (Auto) 10.6 Alfalfa % (Auto) 11.2 H Eos % (Auto) 2.4 Baso % (Auto) 0.9 Neut # (Auto) 9.7 H Lymph # (Auto) 1.4 Alfalfa # (Auto) 1.5 H Eos # (Auto) 0.3 Baso # (Auto) 0.1 WBC Differential Manual diff final Seg Neuts % (Manual) 59 Band Neuts % (Manual) 15 H Lymphocytes % (Manual) 3 L Monocytes % (Manual) 10 H Eosinophils % (Manual) 4 Metamyelocytes % (Man) 6 H Myelocytes % (Man) 3 H Abs Neuts (Manual) 10.8 H Differential Comment . Platelet Estimate High H Platelet Morphology Normal RBC Morphology BUN 19 H Creatinine 0.89 Estimated GFR 83 L POC Glucose 169 H Vancomycin Trough MTS Gel Crossmatch 07/27/18 11:23 WBC RBC Hgb Hct MCV MCH MCHC RDW Plt Count MPV Prelim Diff (Auto) Neut % (Auto) Lymph % (Auto) Alfalfa % (Auto) Eos % (Auto) Baso % (Auto) Neut # (Auto) Lymph # (Auto) Alfalfa # (Auto) Eos # (Auto) Baso # (Auto) WBC Differential Seg Neuts % (Manual) Band Neuts % (Manual) Lymphocytes % (Manual) Monocytes % (Manual) Eosinophils % (Manual) Metamyelocytes % (Man) Myelocytes % (Man) Abs Neuts (Manual) Differential Comment Platelet Estimate Platelet Morphology RBC Morphology BUN Creatinine Estimated GFR POC Glucose 211 H Vancomycin Trough MTS Gel Crossmatch Microbiology 07/26/18 14:48 Blood - Peripheral Aerobic Blood Culture - Preliminary No growth in 1 day 07/26/18 14:48 Blood - Peripheral Anaerobic Blood Culture - Preliminary No growth in 1 day 07/26/18 14:53 Blood - Peripheral Aerobic Blood Culture - Preliminary No growth in 1 day 07/26/18 14:53 Blood - Peripheral Anaerobic Blood Culture - Preliminary No growth in 1 day 07/24/18 13:40 Blood - Peripheral Aerobic Blood Culture - Final Staphylococcus aureus 07/24/18 13:40 Blood - Peripheral Anaerobic Blood Culture - Final Staphylococcus aureus 07/24/18 13:35 Blood - Peripheral Aerobic Blood Culture - Final Staphylococcus aureus 07/24/18 13:35 Blood - Peripheral Anaerobic Blood Culture - Final Staphylococcus aureus 07/24/18 14:50 Clean Catch Urine Urine Culture - Final No growth in 48 hours Assessment and Plan - Plan This is a 77-year-old gentleman previously noted to have a Charcot foot secondary to diabetes mellitus with wound care being performed at home, now presents with gangrene left foot with extensive osteomyelitis and diffuse cellulitis and septic shock. Patient initially requiring vasopressor support, norepinephrine. s/p emergent surgery-left BKA with vascular surgeon Dr. Mayo on 07/24. Sepsis element resolved, now no longer needing pressor support Left foot infection involving gangrene, osteomyelitis and cellulitis Cultures growing MSSA Improved now that pt is status post BKA -Wound VAC in place, surgery planning stage II to have wound VAC removed in a few days in OR Antibiotics de-escalated down to Rocephin per ID -pain control -Wound cultures grew out MSSA, Morganella, Doyle -Repeat blood cultures negative -Leukocytosis improving since admission, continue trending MSSA bacteremia Likely secondary to above infection, Rocephin per ID Diabetic neuropathy On gabapentin Coronary artery disease History of CABG Continue home Coreg -Resume home Lipitor, continue baby aspirin CKD lisinopril Transaminitis Possibly secondary to shock liver versus fatty liver Improving, trend values, will resume statin for now Heparin
[2018-07-27 17:01] LABS: Total Protein 7.7 g/dL (6.4-8.2)
[2018-07-28] MEDS: Insulin NovoLOG Aspart Correctional Sugar Inj SQ SCH ×5 (03:11→21:47)
[2018-07-28] MEDS: Chlorhexidine Gluconate 2% 1 Pack (2 Cloths) TOPICAL SCH (03:12)
[2018-07-28] MEDS: Heparin - SQ 10,000 UNITS/ML Vial SQ SCH ×3 (05:13→21:52)
[2018-07-28] MEDS: Sod Chloride 0.9% Inj 1,000 ML IV.CONT SCH ×2 (05:15→06:16)
--- NOTE | 2018-07-28 09:05 | P.PNVS ---
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 essentially of the left foot about 3 inches above the ankle Tissue planes were opened bluntly and irrigated and wound VAC was placed Patient will undergo bedside change of wound vacs and then hopefully by the end of next week will undergo second stage of the procedure which consists of higher below-knee amputation and closure Depending on how patient response to antibiotics may take a little longer to get there as well At this point nothing to add to care patient should remain on wound VAC that should be changed twice a week 07/26/2018 Patient is awake alert and oriented Wound VAC drainage is starting to clear up Awaiting tissue culture OR culture results ID help is greatly appreciated We will keep changing wound vacs at the bedside and patient will probably go by the end of the week for definitive second stage closure Can transfer to floor anytime 07/27/2018 Patient is hemodynamically stable Below-knee amputation site is clean there is no more crepitus in the tissues of the leg and gas gangrene is controlled Cultures positive for Staphylococcus aureus Morganella morganii and Enterococcus faecalis By the end of the week will take patient to the OR for a second stage BKA and closure In the meantime orders for the wound VAC change have been given 07/28/2018 Patient remains hemodynamically stable Appears to be soft nonedematous and there is no more crepitus Drainage from the wound VAC is serosanguineous and clearing up Will probably take to the operating room Friday to close the stump Objective Vital Signs / I&O: Vital Signs 07/27/18 12:00 07/27/18 16:00 07/27/18 20:00 Temperature 97.8 F 97.3 F L 98.7 F Pulse Rate 83 81 88 Respiratory Rate 18 18 18 Blood Pressure 163/81 H 133/78 134/63 Pulse Oximetry 95 95 93 L 07/28/18 00:00 Temperature 97.7 F Pulse Rate 83 Respiratory Rate 18 Blood Pressure 163/89 H Pulse Oximetry 92 L Intake & Output 07/27/18 07/28/18 07/28/18 18:59 06:59 18:59 Intake Total 700 / 700 800 / 800 Output Total 590 / 590 1350 / 1350 0 / 0 Balance 110 / 110 -550 / -550 0 / 0 Weight 85.7 kg Intake: IV 100 / 100 800 / 800 NS Inj 1,000 ML @ KVO 30 mls/hr 800 / 800 IV.CONT .Q24H [facility] Rx#:[id number] Rocephin Inj 2,000 MG In NS Inj 100 / 100 100 ML @ 200 mls/hr IV.SIG Q24H [facility] Rx#:[id number] Oral 600 / 600 Output: Urine 550 / 550 1350 / 1350 Wound Vac Amount 40 / 40 0 / 0 Left Knee 40 / 40 0 / 0 Other: Mode Setting Left Knee Continuous Continuous Continuous Laboratory Results - last 24 hr 07/27/18 07/27/18 07/27/18 05:54 11:23 15:37 WBC Differential Manual diff final Seg Neuts % (Manual) 59 Band Neuts % (Manual) 15 H Lymphocytes % (Manual) 3 L Monocytes % (Manual) 10 H Eosinophils % (Manual) 4 Metamyelocytes % (Man) 6 H Myelocytes % (Man) 3 H Abs Neuts (Manual) 10.8 H Platelet Estimate High H Platelet Morphology Normal BUN Creatinine Estimated GFR POC Glucose 211 H Total Bilirubin 0.3 Direct Bilirubin 0.1 Indirect Bilirubin 0.2 AST 52 H ALT 79 H Alkaline Phosphatase 228 H Total Protein 7.7 D Albumin 2.0 L 07/27/18 07/27/18 07/28/18 17:00 20:37 02:46 WBC Differential Seg Neuts % (Manual) Band Neuts % (Manual) Lymphocytes % (Manual) Monocytes % (Manual) Eosinophils % (Manual) Metamyelocytes % (Man) Myelocytes % (Man) Abs Neuts (Manual) Platelet Estimate Platelet Morphology BUN Creatinine Estimated GFR POC Glucose 128 H 225 H 112 H Total Bilirubin Direct Bilirubin Indirect Bilirubin AST ALT Alkaline Phosphatase Total Protein Albumin 07/28/18 07/28/18 05:10 08:31 WBC Differential Seg Neuts % (Manual) Band Neuts % (Manual) Lymphocytes % (Manual) Monocytes % (Manual) Eosinophils % (Manual) Metamyelocytes % (Man) Myelocytes % (Man) Abs Neuts (Manual) Platelet Estimate Platelet Morphology BUN 17 Creatinine 0.91 Estimated GFR 81 L POC Glucose 160 H Total Bilirubin Direct Bilirubin Indirect Bilirubin AST ALT Alkaline Phosphatase Total Protein Albumin Microbiology 07/26/18 14:48 Aerobic Blood Culture - Preliminary Blood - Peripheral No growth in 1 day Anaerobic Blood Culture - Preliminary No growth in 1 day 07/26/18 14:53 Aerobic Blood Culture - Preliminary Blood - Peripheral No growth in 1 day Anaerobic Blood Culture - Preliminary No growth in 1 day 07/24/18 13:40 Aerobic Blood Culture - Final Blood - Peripheral Staphylococcus aureus Anaerobic Blood Culture - Final Staphylococcus aureus 07/24/18 13:35 Aerobic Blood Culture - Final Blood - Peripheral Staphylococcus aureus Anaerobic Blood Culture - Final Staphylococcus aureus
[2018-07-28] MEDS: glipiZIDE 10 MG Tablet PO SCH ×2 (09:09→20:45)
[2018-07-28] MEDS: Famotidine PF Inj 20 MG/2 ML Vial IV.PUSH SCH ×2 (09:09→20:27)
[2018-07-28] MEDS: Gabapentin 400 MG Capsule PO SCH ×3 (09:09→17:47)
[2018-07-28] MEDS: Senna/Docusate Sodium 8.6/50 MG Tablet PO SCH ×2 (09:10→20:27)
[2018-07-28] MEDS: Lisinopril 5 MG Tablet PO SCH (09:10)
--- NOTE | 2018-07-28 13:36 | P.PN ---
Subjective Interval history: Nursing denies any acute changes overnight. Patient says he is still hurting, hurts a lot more when he moves around. Physical Exam Vital signs: Vital Signs 07/27/18 16:00 07/27/18 20:00 07/28/18 00:00 Temperature 97.3 F L 98.7 F 97.7 F Pulse Rate 81 88 83 Respiratory Rate 18 18 18 Blood Pressure 133/78 134/63 163/89 H Pulse Oximetry 95 93 L 92 L 07/28/18 08:00 07/28/18 09:06 07/28/18 12:00 Temperature 97.4 F L 97.4 F L Pulse Rate 88 90 Respiratory Rate 19 19 Blood Pressure 160/90 H 156/90 H Pulse Oximetry 92 L 95 92 L Intake & Output 07/27/18 07/28/18 07/28/18 18:59 06:59 18:59 Intake Total 700 / 700 800 / 800 Output Total 590 / 590 1350 / 1350 0 / 0 Balance 110 / 110 -550 / -550 0 / 0 Weight 85.7 kg Intake: IV 100 / 100 800 / 800 NS Inj 1,000 ML @ KVO 30 mls/hr 800 / 800 IV.CONT .Q24H [facility] Rx#:[id number] Rocephin Inj 2,000 MG In NS Inj 100 / 100 100 ML @ 200 mls/hr IV.SIG Q24H [facility] Rx#:[id number] Oral 600 / 600 Output: Urine 550 / 550 1350 / 1350 Wound Vac Amount 40 / 40 0 / 0 Left Knee 40 / 40 0 / 0 Other: Mode Setting Left Knee Continuous Continuous Continuous Date of Last Bowel Movement 07/28/18 Narrative: Sleeping in no distress, easily awoken Clear lungs bilaterally, unlabored breathing Heart sounds regular rate and rhythm Right BKA stump with postoperative dressing and wound VAC in place, - Urinary Catheter Management Indwelling Temp Sensing Catheter Cath placed during this visit: yes Reason for continuing: Hourly intake/output Insertion date: 07/24/18 Insertion time: 15:09 Results - Labs CBC & Chem 7: 07/27/18 05:54 07/28/18 05:10 Laboratory Results - last 24 hr 07/27/18 07/27/18 07/27/18 15:37 17:00 20:37 BUN Creatinine Estimated GFR POC Glucose 128 H 225 H Total Bilirubin 0.3 Direct Bilirubin 0.1 Indirect Bilirubin 0.2 AST 52 H ALT 79 H Alkaline Phosphatase 228 H Total Protein 7.7 D Albumin 2.0 L 07/28/18 07/28/18 07/28/18 02:46 05:10 08:31 BUN 17 Creatinine 0.91 Estimated GFR 81 L POC Glucose 112 H 160 H Total Bilirubin Direct Bilirubin Indirect Bilirubin AST ALT Alkaline Phosphatase Total Protein Albumin 07/28/18 11:46 BUN Creatinine Estimated GFR POC Glucose 214 H Total Bilirubin Direct Bilirubin Indirect Bilirubin AST ALT Alkaline Phosphatase Total Protein Albumin Microbiology 07/26/18 14:48 Blood - Peripheral Aerobic Blood Culture - Preliminary No growth in 2 days 07/26/18 14:48 Blood - Peripheral Anaerobic Blood Culture - Preliminary No growth in 2 days 07/26/18 14:53 Blood - Peripheral Aerobic Blood Culture - Preliminary No growth in 2 days 07/26/18 14:53 Blood - Peripheral Anaerobic Blood Culture - Preliminary No growth in 2 days 07/24/18 13:40 Blood - Peripheral Aerobic Blood Culture - Final Staphylococcus aureus 07/24/18 13:40 Blood - Peripheral Anaerobic Blood Culture - Final Staphylococcus aureus 07/24/18 13:35 Blood - Peripheral Aerobic Blood Culture - Final Staphylococcus aureus 07/24/18 13:35 Blood - Peripheral Anaerobic Blood Culture - Final Staphylococcus aureus Assessment and Plan - Plan This is a 77-year-old gentleman previously noted to have a Charcot foot secondary to diabetes mellitus with wound care being performed at home, now presents with gangrene left foot with extensive osteomyelitis and diffuse cellulitis and septic shock. Patient initially requiring vasopressor support, norepinephrine. s/p emergent surgery-left BKA with vascular surgeon Dr. Mayo on 07/24. Sepsis element resolved, now no longer needing pressor support Left foot infection involving gangrene, osteomyelitis and cellulitis Wound cultures growing MSSA, Morganella, Doyle Improved now that pt is status post BKA -Wound VAC in place, surgery planning stage II to have wound VAC removed in a few days in OR Rocephin per ID -pain control -Leukocytosis improving since admission, continue trending MSSA bacteremia Likely secondary to above infection -Repeat cultures negative -Rocephin per ID Diabetic neuropathy On gabapentin Coronary artery disease History of CABG Continue home Coreg - home Lipitor, continue baby aspirin CKD lisinopril Transaminitis Possibly secondary to shock liver versus fatty liver Improving Heparin
[2018-07-29] MEDS: Insulin NovoLOG Aspart Correctional Sugar Inj SQ SCH ×5 (04:54→20:37)
[2018-07-29] MEDS: oxyCODONE/Acetaminophen 10/325 Tablet PO PRN (04:54)
[2018-07-29] MEDS: Heparin - SQ 10,000 UNITS/ML Vial SQ SCH ×3 (04:59→21:18)
[2018-07-29] MEDS: Chlorhexidine Gluconate 2% 1 Pack (2 Cloths) TOPICAL SCH (04:59)
[2018-07-29 05:38] LABS: Alanine Aminotransferase 72 U/L (12-78); Albumin 2.2 g/dL (3.4-5.0); Anion Gap 8 meq/L (5-15); Aspartate Aminotransferase 58 U/L (15-37); Blood Urea Nitrogen 16 mg/dL (7-18); Calcium 8.4 mg/dL (8.5-10.1); Carbon Dioxide 26.2 meq/L (21.0-32.0); Chloride 105 meq/L (98-107); Glomerular Filtration Rate 84 mL/min (>89); Glucose,Random 112 mg/dL (74-106); Potassium 4.1 meq/L (3.5-5.1); Sodium 139 meq/L (136-145)
[2018-07-29 05:40] LABS: Alkaline Phosphatase 191 U/L (45-117); Total Protein 7.8 g/dL (6.4-8.2)
[2018-07-29] MEDS: Famotidine PF Inj 20 MG/2 ML Vial IV.PUSH SCH ×2 (08:49→20:36)
[2018-07-29] MEDS: Sod Chloride 0.9% Inj 1,000 ML IV.CONT SCH (08:50)
[2018-07-29] MEDS: Lisinopril 5 MG Tablet PO SCH (08:51)
[2018-07-29] MEDS: Gabapentin 400 MG Capsule PO SCH ×3 (08:51→17:28)
[2018-07-29] MEDS: glipiZIDE 10 MG Tablet PO SCH (08:51)
[2018-07-29] MEDS: Senna/Docusate Sodium 8.6/50 MG Tablet PO SCH ×2 (08:51→20:37)
--- NOTE | 2018-07-29 12:01 | P.PNVS ---
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 essentially of the left foot about 3 inches above the ankle Tissue planes were opened bluntly and irrigated and wound VAC was placed Patient will undergo bedside change of wound vacs and then hopefully by the end of next week will undergo second stage of the procedure which consists of higher below-knee amputation and closure Depending on how patient response to antibiotics may take a little longer to get there as well At this point nothing to add to care patient should remain on wound VAC that should be changed twice a week 07/26/2018 Patient is awake alert and oriented Wound VAC drainage is starting to clear up Awaiting tissue culture OR culture results ID help is greatly appreciated We will keep changing wound vacs at the bedside and patient will probably go by the end of the week for definitive second stage closure Can transfer to floor anytime 07/27/2018 Patient is hemodynamically stable Below-knee amputation site is clean there is no more crepitus in the tissues of the leg and gas gangrene is controlled Cultures positive for Staphylococcus aureus Morganella morganii and Enterococcus faecalis By the end of the week will take patient to the OR for a second stage BKA and closure In the meantime orders for the wound VAC change have been given 07/28/2018 Patient remains hemodynamically stable Appears to be soft nonedematous and there is no more crepitus Drainage from the wound VAC is serosanguineous and clearing up Will probably take to the operating room Friday to close the stump 07/29/2018 Left BKA stump is clean and there is no gas in tissues Continue wound VAC for another few days and will take patient Friday for second stage closure of the BKA stump Objective Vital Signs / I&O: Vital Signs 07/28/18 16:00 07/28/18 20:00 07/29/18 00:00 Temperature 97.6 F 97.3 F L 97.9 F Pulse Rate 90 98 H 94 H Respiratory Rate 19 22 20 Blood Pressure 161/91 H 136/75 154/86 H Pulse Oximetry 95 97 97 07/29/18 04:00 07/29/18 08:00 Temperature 98.3 F 97.6 F Pulse Rate 90 77 Respiratory Rate 20 18 Blood Pressure 148/86 H 151/77 H Pulse Oximetry 94 L 93 L Intake & Output 07/28/18 07/29/18 07/29/18 18:59 06:59 18:59 Intake Total 800 / 800 Output Total 1400 / 1400 550 / 550 Balance -600 / -600 -550 / -550 Weight 84 kg Intake: IV 100 / 100 Rocephin Inj 2,000 MG In NS Inj 100 / 100 100 ML @ 200 mls/hr IV.SIG Q24H [facility] Rx#:[id number] Oral 700 / 700 Output: Urine 1400 / 1400 Urine Amount (Catheter) 550 / 550 Indwelling Temp Sensing 550 / 550 Catheter Wound Vac Amount 0 / 0 Left Knee 0 / 0 Other: Mode Setting Left Knee Continuous Continuous Date of Last Bowel Movement 07/28/18 07/28/18 # Bowel Movements 0 1 Laboratory Results - last 24 hr 07/28/18 07/28/18 07/29/18 17:09 20:35 02:08 Sodium Potassium Chloride Carbon Dioxide Anion Gap BUN Creatinine Estimated GFR POC Glucose 177 H 260 H 195 H Random Glucose Calcium Total Bilirubin AST ALT Alkaline Phosphatase Total Protein Albumin 07/29/18 07/29/18 07/29/18 04:32 07:52 11:06 Sodium 139 Potassium 4.1 Chloride 105 Carbon Dioxide 26.2 Anion Gap 8 BUN 16 Creatinine 0.88 Estimated GFR 84 L POC Glucose 147 H 220 H Random Glucose 112 H Calcium 8.4 L Total Bilirubin 0.3 AST 58 H ALT 72 Alkaline Phosphatase 191 H Total Protein 7.8 Albumin 2.2 L Microbiology 07/26/18 14:48 Aerobic Blood Culture - Preliminary Blood - Peripheral No growth in 3 days Anaerobic Blood Culture - Preliminary No growth in 3 days 07/26/18 14:53 Aerobic Blood Culture - Preliminary Blood - Peripheral No growth in 3 days Anaerobic Blood Culture - Preliminary No growth in 3 days
--- NOTE | 2018-07-29 17:25 | P.PN ---
Subjective Interval history: Nursing denies any acute issues overnight. Patient himself says he only has pain when he moves his foot. Says the pain medicine orally is working okay for him. is concerned about not being on metformin, explained to her that the possibility of needing procedures and patient redirects is to use strictly insulin. Physical Exam Vital signs: Vital Signs 07/28/18 20:00 07/29/18 00:00 07/29/18 04:00 Temperature 97.3 F L 97.9 F 98.3 F Pulse Rate 98 H 94 H 90 Respiratory Rate 22 20 20 Blood Pressure 136/75 154/86 H 148/86 H Pulse Oximetry 97 97 94 L 07/29/18 08:00 07/29/18 12:00 07/29/18 16:00 Temperature 97.6 F 97.5 F L 97.3 F L Pulse Rate 77 83 87 Respiratory Rate 18 18 18 Blood Pressure 151/77 H 156/82 H 146/85 H Pulse Oximetry 93 L 95 98 Intake & Output 07/28/18 07/29/18 07/29/18 18:59 06:59 18:59 Intake Total 800 / 800 100 / 100 Output Total 1400 / 1400 550 / 550 Balance -600 / -600 -550 / -550 100 / 100 Weight 84 kg Intake: IV 100 / 100 100 / 100 Rocephin Inj 2,000 MG In NS Inj 100 / 100 100 / 100 100 ML @ 200 mls/hr IV.SIG Q24H [facility] Rx#:[id number] Oral 700 / 700 Output: Urine 1400 / 1400 Urine Amount (Catheter) 550 / 550 Indwelling Temp Sensing 550 / 550 Catheter Wound Vac Amount 0 / 0 Left Knee 0 / 0 Other: Mode Setting Left Knee Continuous Continuous Date of Last Bowel Movement 07/28/18 07/28/18 # Bowel Movements 0 1 Narrative: Lying in bed, awake, alert Clear lungs bilaterally, unlabored breathing Heart sounds regular rate and rhythm, 3/6 ejection murmur Right BKA stump with postoperative dressing and wound VAC in place, - Urinary Catheter Management Indwelling Temp Sensing Catheter Cath placed during this visit: yes Reason for continuing: Other continuation reason Insertion date: 07/24/18 Insertion time: 15:09 Results - Labs CBC & Chem 7: 07/27/18 05:54 07/29/18 04:32 Laboratory Results - last 24 hr 07/28/18 07/29/18 07/29/18 20:35 02:08 04:32 Sodium 139 Potassium 4.1 Chloride 105 Carbon Dioxide 26.2 Anion Gap 8 BUN 16 Creatinine 0.88 Estimated GFR 84 L POC Glucose 260 H 195 H Random Glucose 112 H Calcium 8.4 L Total Bilirubin 0.3 AST 58 H ALT 72 Alkaline Phosphatase 191 H Total Protein 7.8 Albumin 2.2 L 07/29/18 07/29/18 07/29/18 07:52 11:06 17:09 Sodium Potassium Chloride Carbon Dioxide Anion Gap BUN Creatinine Estimated GFR POC Glucose 147 H 220 H 168 H Random Glucose Calcium Total Bilirubin AST ALT Alkaline Phosphatase Total Protein Albumin Microbiology 07/26/18 14:48 Blood - Peripheral Aerobic Blood Culture - Preliminary No growth in 3 days 07/26/18 14:48 Blood - Peripheral Anaerobic Blood Culture - Preliminary No growth in 3 days 07/26/18 14:53 Blood - Peripheral Aerobic Blood Culture - Preliminary No growth in 3 days 07/26/18 14:53 Blood - Peripheral Anaerobic Blood Culture - Preliminary No growth in 3 days Assessment and Plan - Plan This is a 77-year-old gentleman previously noted to have a Charcot foot secondary to diabetes mellitus with wound care being performed at home, now presents with gangrene left foot with extensive osteomyelitis and diffuse cellulitis and septic shock. Patient initially requiring vasopressor support, norepinephrine. s/p emergent surgery-left BKA with vascular surgeon Dr. Mayo on 07/24. Sepsis element resolved, now no longer needing pressor support Left foot infection involving gangrene, osteomyelitis and cellulitis Wound cultures growing MSSA, Morganella, Doyle Improved now that pt is status post BKA -Wound VAC in place, surgery planning stage II to have wound VAC removed in a 2 days in OR Rocephin per ID -pain control -Leukocytosis improving since admission, continue trending MSSA bacteremia Likely secondary to above infection -Repeat cultures negative -Rocephin per ID DM -On gabapentin -SS, hold home glipizide given lability of sugars Coronary artery disease History of CABG Continue home Coreg - home Lipitor, continue baby aspirin CKD lisinopril Heparin
[2018-07-30] MEDS: oxyCODONE/Acetaminophen 10/325 Tablet PO PRN ×2 (01:46→20:40)
[2018-07-30] MEDS: Insulin NovoLOG Aspart Correctional Sugar Inj SQ SCH ×5 (02:40→22:26)
[2018-07-30] MEDS: Heparin - SQ 10,000 UNITS/ML Vial SQ SCH ×3 (05:29→22:31)
[2018-07-30] MEDS: Gabapentin 400 MG Capsule PO SCH ×3 (08:41→17:08)
[2018-07-30] MEDS: Senna/Docusate Sodium 8.6/50 MG Tablet PO SCH ×2 (08:41→20:41)
[2018-07-30] MEDS: Lisinopril 5 MG Tablet PO SCH (08:41)
[2018-07-30] MEDS: Sod Chloride 0.9% Inj 1,000 ML IV.CONT SCH (08:42)
[2018-07-30] MEDS: Famotidine PF Inj 20 MG/2 ML Vial IV.PUSH SCH (08:42)
--- NOTE | 2018-07-30 10:51 | P.PNIM ---
Physical Exam Vital signs: Last Vital Signs Temp 97.6 F 07/30/18 08:00 Pulse 84 07/30/18 08:00 Resp 17 07/30/18 08:00 BP 132/79 07/30/18 08:00 Pulse Ox 96 07/30/18 08:00 Intake & Output 07/28/18 07/29/18 07/30/18 07/31/18 06:59 06:59 06:59 06:59 Intake Total 1500 / 1500 800 / 800 2520 / 2520 Output Total 1940 / 1940 1950 / 1950 1999 Balance -440 / -440 -1150 / -1150 520 / 520 Weight 85.7 kg 83.8 kg 83.8 kg Narrative: Well-nourished well-developed white male no acute distress sitting up in chair. Regular rate and rhythm Lungs clear to auscultation bilaterally Abdomen soft Left BKA stump with wound VAC in place Alert and oriented to person place Urinary Catheter Management Indwelling Temp Sensing Catheter: Cath placed during this visit: yes Urethral indwelling: Yes Reason for continuing: Decision to DC catheter Insertion date: 07/24/18 Insertion time: 15:09 Results Labs CBC & Chem 7: 07/27/18 05:54 07/29/18 04:32 Labs: Microbiology 07/26/18 14:48 Blood - Peripheral Aerobic Blood Culture - Preliminary No growth in 3 days 07/26/18 14:48 Blood - Peripheral Anaerobic Blood Culture - Preliminary No growth in 3 days 07/26/18 14:53 Blood - Peripheral Aerobic Blood Culture - Preliminary No growth in 3 days 07/26/18 14:53 Blood - Peripheral Anaerobic Blood Culture - Preliminary No growth in 3 days Assessment and Plan Plan This is a 77-year-old gentleman previously noted to have a Charcot foot secondary to diabetes mellitus with wound care being performed at home, now presents with gangrene left foot with extensive osteomyelitis and diffuse cellulitis and septic shock. Patient initially requiring vasopressor support, norepinephrine. s/p emergent surgery-left BKA with vascular surgeon Dr. Mayo on 07/24. Sepsis element resolved History of septic shock with left foot infection involving gangrene, osteomyelitis and cellulitis Wound cultures growing MSSA, Morganella, Doyle Improved now that pt is status post BKA on July 24 -Wound VAC in place, vascular surgery planning stage II to have wound VAC removed for wound closure in a.m. Rocephin 2 g IV every 24 hours until August 03 per ID, Dr. Saravia -pain control History of septic shock with MSSA bacteremia Likely secondary to above infection -Repeat blood cultures from 07/26 negative -Rocephin per ID through August 03 DM type II, [id number], uncontrolled -On gabapentin -SSI Add Levemir And glipizide on hold for surgery in the morning Coronary artery disease History of CABG Continue home Coreg -Continue home Lipitor, eda aspirin CKD stage II lisinopril DVT prophylaxis heparin
--- NOTE | 2018-07-30 12:03 | P.PNVS ---
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 essentially of the left foot about 3 inches above the ankle Tissue planes were opened bluntly and irrigated and wound VAC was placed Patient will undergo bedside change of wound vacs and then hopefully by the end of next week will undergo second stage of the procedure which consists of higher below-knee amputation and closure Depending on how patient response to antibiotics may take a little longer to get there as well At this point nothing to add to care patient should remain on wound VAC that should be changed twice a week 07/26/2018 Patient is awake alert and oriented Wound VAC drainage is starting to clear up Awaiting tissue culture OR culture results ID help is greatly appreciated We will keep changing wound vacs at the bedside and patient will probably go by the end of the week for definitive second stage closure Can transfer to floor anytime 07/27/2018 Patient is hemodynamically stable Below-knee amputation site is clean there is no more crepitus in the tissues of the leg and gas gangrene is controlled Cultures positive for Staphylococcus aureus Morganella morganii and Enterococcus faecalis By the end of the week will take patient to the OR for a second stage BKA and closure In the meantime orders for the wound VAC change have been given 07/28/2018 Patient remains hemodynamically stable Appears to be soft nonedematous and there is no more crepitus Drainage from the wound VAC is serosanguineous and clearing up Will probably take to the operating room Friday to close the stump 07/29/2018 Left BKA stump is clean and there is no gas in tissues Continue wound VAC for another few days and will take patient Friday for second stage closure of the BKA stump 07/30/2018 Patient for closure of left BKA stump and second stage procedure tomorrow Objective Vital Signs / I&O: Vital Signs 07/29/18 16:00 07/29/18 20:00 07/30/18 00:00 Temperature 97.3 F L 98.3 F 98.2 F Pulse Rate 87 84 91 H Respiratory Rate 18 18 18 Blood Pressure 146/85 H 161/87 H 145/86 H Pulse Oximetry 98 95 95 07/30/18 08:00 Temperature 97.6 F Pulse Rate 84 Respiratory Rate 17 Blood Pressure 132/79 Pulse Oximetry 96 Intake & Output 07/29/18 07/30/18 07/30/18 18:59 06:59 18:59 Intake Total 2300 / 2300 220 / 220 Output Total 1000 / 1000 1000 / 1000 250 / 250 Balance 1300 / 1300 -780 / -780 -250 / -250 Weight 83.8 kg Intake: IV 1100 / 1100 NS Inj 1,000 ML @ KVO 30 mls/hr 1000 / 1000 IV.CONT .Q24H [facility] Rx#:[id number] Rocephin Inj 2,000 MG In NS Inj 100 / 100 100 ML @ 200 mls/hr IV.SIG Q24H [facility] Rx#:[id number] Oral 1200 / 1200 220 / 220 Output: Urine 1000 / 1000 1000 / 1000 250 / 250 Other: Mode Setting Left Knee Continuous Continuous Continuous Laboratory Results - last 24 hr 07/29/18 07/29/18 07/30/18 17:09 20:00 01:50 POC Glucose 168 H 156 H 189 H 07/30/18 07/30/18 07/30/18 07:28 11:35 11:37 POC Glucose 143 H 215 H 232 H Microbiology 07/26/18 14:48 Aerobic Blood Culture - Preliminary Blood - Peripheral No growth in 4 days Anaerobic Blood Culture - Preliminary No growth in 4 days 07/26/18 14:53 Aerobic Blood Culture - Preliminary Blood - Peripheral No growth in 4 days Anaerobic Blood Culture - Preliminary No growth in 4 days
[2018-07-30] MEDS ORDERED: Pharmacy Ordered Lab Info OTHER ONE (13:45)
[2018-07-30] MEDS: Insulin Detemir Inj 1,000 UNIT/10 ML Vial SQ SCH (22:27)
[2018-07-31] MEDS: Insulin NovoLOG Aspart Correctional Sugar Inj SQ SCH ×5 (03:35→20:59)
[2018-07-31 05:55] LABS: Activated Partial Thrombo Time 32.6 sec (23.4-31.7); INR 1.2 Ratio; Prothrombin Time 11.9 sec (9.8-11.6)
[2018-07-31] MEDS: Heparin - SQ 10,000 UNITS/ML Vial SQ SCH ×3 (07:44→22:02)
[2018-07-31] MEDS: Senna/Docusate Sodium 8.6/50 MG Tablet PO SCH ×2 (09:06→20:52)
[2018-07-31] MEDS: Gabapentin 400 MG Capsule PO SCH ×3 (09:06→17:06)
[2018-07-31] MEDS: Lisinopril 5 MG Tablet PO SCH (09:06)
--- NOTE | 2018-07-31 10:50 | P.PNIM ---
Subjective Interval history: Follow up visit for left foot infection, osteomyelitis, cellulitis, s/p left BKA, DM 2, CAD and CKD Pt lying in bed, awake, alert and oriented x 3, waiting for his procedure for closure of stump. Denies any pain at this time, NPO Pt denies any fever or chills, nausea or vomiting Physical Exam Vital signs: Last Vital Signs Temp 98.2 F 07/31/18 08:00 Pulse 90 07/31/18 08:00 Resp 18 07/31/18 08:00 BP 141/84 H 07/31/18 08:00 Pulse Ox 96 07/31/18 08:00 Intake & Output 07/29/18 07/30/18 07/31/18 08/01/18 06:59 06:59 06:59 06:59 Intake Total 800 / 800 2520 / 2520 100 / 100 Output Total 1950 / 1950 1999 575 / 575 Balance -1150 / -1150 520 / 520 -475 / -475 Weight 83.8 kg 83.8 kg 82.8 kg Narrative: GENERAL: well developed, well nourished male in no acute distress SKIN: Warm and dry. HEAD: Atraumatic. Normocephalic. EYES: Pupils equal and round. No scleral icterus. No injection or drainage. ENT: No nasal bleeding or discharge. Mucous membranes pink and moist. NECK: Trachea midline. No JVD. CARDIOVASCULAR: Regular rate and rhythm. RESPIRATORY: No accessory muscle use. Clear to auscultation. Breath sounds equal bilaterally. GASTROINTESTINAL: Abdomen soft, non-tender, nondistended. Hepatic and splenic margins not palpable. MUSCULOSKELETAL: Extremities without clubbing, cyanosis, or edema. Left BKA stump with wound vac in place NEUROLOGICAL: Awake and alert and oriented x 3. Generalized weakness, moving all 4 extremities. Normal speech. PSYCHIATRIC: Appropriate mood and affect; insight and judgment normal. Urinary Catheter Management Indwelling Temp Sensing Catheter: Cath placed during this visit: yes, but has since been removed by the nurse Urethral indwelling: Yes Insertion date: 07/24/18 Insertion time: 15:09 Removal date: 07/30/18 Removal time: 11:10 Results Labs CBC & Chem 7: 07/27/18 05:54 07/29/18 04:32 Labs: Microbiology 07/26/18 14:48 Blood - Peripheral Aerobic Blood Culture - Preliminary No growth in 4 days 07/26/18 14:48 Blood - Peripheral Anaerobic Blood Culture - Preliminary No growth in 4 days 07/26/18 14:53 Blood - Peripheral Aerobic Blood Culture - Preliminary No growth in 4 days 07/26/18 14:53 Blood - Peripheral Anaerobic Blood Culture - Preliminary No growth in 4 days Assessment and Plan Plan This is a 77-year-old gentleman previously noted to have a Charcot foot secondary to diabetes mellitus with wound care being performed at home, now presents with gangrene left foot with extensive osteomyelitis and diffuse cellulitis and septic shock. Patient initially requiring vasopressor support, norepinephrine. s/p emergent surgery-left BKA with vascular surgeon Dr. Mayo on 07/24. Sepsis element resolved History of septic shock with left foot infection involving gangrene, osteomyelitis and cellulitis Wound cultures growing MSSA, Morganella, Doyle Improved now that pt is status post BKA on July 24 -Wound VAC in place, vascular surgery planning stage II to have wound VAC removed for wound closure today Rocephin 2 g IV every 24 hours until August 03 per ID, Dr. Saravia -pain control and bowel regimen History of septic shock with MSSA bacteremia Likely secondary to above infection -Repeat blood cultures from 07/26 negative -Rocephin per ID through August 03 - Blood Culture on 07/26: no growth x 4 days, follow culture results DM type II, [id number], uncontrolled -On gabapentin -Accu checks AC and HS with Insulin Sliding Scale -started on Levemir - glipizide on hold for surgery today Coronary artery disease History of CABG -No CP or SOB Continue home Coreg -Continue home Lipitor, and aspirin CKD stage II lisinopril -avoid nephrotoxins -follow renal indices DVT prophylaxis: heparin Code Status: full code Discussed Condition With: patient and nurse
[2018-07-31] MEDS ORDERED: HYDROmorphone PF Inj 0.5 MG/0.5 ML Syringe ONE ×2 (14:22→14:34)
[2018-07-31] MEDS ORDERED: Morphine Inj 4 MG/ML Vial ONE (14:26)
[2018-07-31] MEDS ORDERED: fentaNYL Citrate Inj 100 MCG/2 ML Ampul ONE (14:26)
[2018-07-31] MEDS: oxyCODONE/Acetaminophen 10/325 Tablet PO PRN ×2 (15:30→19:24)
--- NOTE | 2018-07-31 19:06 | MP ---
cc: Sal Mayo MD DATE OF OPERATION: 07/31/2018 PREOPERATIVE DIAGNOSIS: Gas gangrene of the left leg, status post guillotine amputation first stage. POSTOPERATIVE DIAGNOSIS: Gas gangrene of the left leg, status post guillotine amputation first stage. PROCEDURE PERFORMED: Left BKA amputation, second stage and closure. SURGEON: Sal Mayo MD ANESTHESIA: General. ESTIMATED BLOOD LOSS: Maybe 50 mL. PROCEDURE: The patient was prepped and draped in the usual fashion. The outline of the incision is made with a silk string and then incision made with a 10 blade over the tibia and laterally carried down along the calf, deepened down through the fascia and then with the cautery, the flexor muscles are transected. Anterior tibial artery and vein are clamped, divided, and ligated. The vessels are so calcified that a hemostat actually broke trying to clamp a them, clearly occluded. The periosteal elevator fibula and tibia are freed up of periosteum to about an inch and a half above the original incision, and both are transected with oscillating saw while a tie pressure cuff is inflated. This is now released. The trifurcation vessels are ligated with 3-0 Vicryl stick ties [id number], and there is some bleeding from the posterior tibial artery, but that is about it. The anterior tibial nerve is cut and allowed to retract. The flap is now observed, meticulous hemostasis with some 2-0 Vicryl stick ties is obtained in bleeding veins, and then the flap was irrigated with copious amounts of saline. The tibia is now cut under an angle with oscillating saw and smoothed down with a rasp. The distal end of the posterior flap is now cut off with an amputation knife, and then the flap is flexed forward to close the incision. The incision is now closed with 0 Vicryl fascia deep layer, superficial layer, and skin is closed with 2-0 Prolene interrupted stitches. Dressing applied. The patient tolerated the procedure well. MD LUISITO Rios/john , 05:44 PM , 05:50 PM
[2018-07-31] MEDS: Insulin Detemir Inj 1,000 UNIT/10 ML Vial SQ SCH (20:58)
[2018-08-01] MEDS: Insulin NovoLOG Aspart Correctional Sugar Inj SQ SCH ×5 (03:15→20:43)
[2018-08-01] MEDS: oxyCODONE/Acetaminophen 10/325 Tablet PO PRN ×4 (03:15→20:42)
[2018-08-01] MEDS: Heparin - SQ 10,000 UNITS/ML Vial SQ SCH ×3 (05:10→22:30)
[2018-08-01] MEDS: Gabapentin 400 MG Capsule PO SCH ×4 (09:21→18:00)
[2018-08-01] MEDS: Senna/Docusate Sodium 8.6/50 MG Tablet PO SCH ×2 (09:21→20:42)
[2018-08-01] MEDS: Lisinopril 5 MG Tablet PO SCH (09:21)
--- NOTE | 2018-08-01 15:50 | P.PNIM ---
Subjective Interval history: Follow up visit for left foot infection, osteomyelitis, cellulitis, s/p left BKA and closure of stump, DM 2, CAD and CKD Patient seen and examined sitting in the chair, complaint of pain on the left leg at 10 out of 10 scale. Nurse requested to give pain medication. Patient wanted to go back to bed however were just sitting in the chair for 15 minutes. Patient encouraged to be out of bed and elevate left lower extremity while sitting. Patient denies any headache or dizziness, denies any abdominal pain, nausea, vomiting, diarrhea or constipation. Patient denies any fever or chills. Nurse reported no acute concerns overnight Physical Exam Vital signs: Last Vital Signs Temp 98.4 F 08/01/18 12:00 Pulse 100 H 08/01/18 12:00 Resp 17 08/01/18 12:00 BP 125/60 08/01/18 12:00 Pulse Ox 93 L 08/01/18 12:00 Intake & Output 07/30/18 07/31/18 08/01/18 08/02/18 06:59 06:59 06:59 06:59 Intake Total 2520 / 2520 100 / 100 300 / 300 100 / 100 Output Total 1999 / 1999 575 / 575 375 / 375 500 / 500 Balance 520 / 520 -475 / -475 -75 / -75 -400 / -400 Weight 83.8 kg 82.8 kg 81.4 kg Narrative: GENERAL: well developed, well nourished male in no acute distress SKIN: Warm and dry. HEAD: Atraumatic. Normocephalic. EYES: Pupils equal and round. No scleral icterus. No injection or drainage. ENT: No nasal bleeding or discharge. Mucous membranes pink and moist. NECK: Trachea midline. No JVD. CARDIOVASCULAR: Regular rate and rhythm. RESPIRATORY: No accessory muscle use. Clear to auscultation. Breath sounds equal bilaterally. GASTROINTESTINAL: Abdomen soft, non-tender, nondistended. Hepatic and splenic margins not palpable. MUSCULOSKELETAL: Extremities without clubbing, cyanosis. Left BKA stump dressed and with Chelsea no drainage noted around it dressing. Moving left lower extremity, able to lift up and down. NEUROLOGICAL: Awake and alert and oriented x 3. Generalized weakness, moving all 4 extremities. Normal speech. PSYCHIATRIC: Appropriate mood and affect; insight and judgment normal. Urinary Catheter Management Indwelling Temp Sensing Catheter: Cath placed during this visit: yes, but has since been removed by the nurse Urethral indwelling: Yes Insertion date: 07/24/18 Insertion time: 15:09 Removal date: 07/30/18 Removal time: 11:10 Results Labs CBC & Chem 7: 07/27/18 05:54 07/29/18 04:32 Labs: Microbiology 07/31/18 13:35 Tissue - Knee Gram Stain - Final 07/31/18 13:35 Tissue - Knee Wound Culture - Preliminary No growth in 24 hours 07/26/18 14:48 Blood - Peripheral Aerobic Blood Culture - Final No growth in 5 days 07/26/18 14:48 Blood - Peripheral Anaerobic Blood Culture - Final No growth in 5 days 07/26/18 14:53 Blood - Peripheral Aerobic Blood Culture - Final No growth in 5 days 07/26/18 14:53 Blood - Peripheral Anaerobic Blood Culture - Final No growth in 5 days Assessment and Plan Plan This is a 77-year-old gentleman previously noted to have a Charcot foot secondary to diabetes mellitus with wound care being performed at home, now presents with gangrene left foot with extensive osteomyelitis and diffuse cellulitis and septic shock. Patient initially requiring vasopressor support, norepinephrine. s/p emergent surgery-left BKA with vascular surgeon Dr. Mayo on 07/24. Sepsis element resolved History of septic shock Left foot infection involving gangrene, osteomyelitis and cellulitis Wound cultures growing MSSA, Morganella, Doyle -s/p left BKA on 07/24/18 -Stump closure on 07/31/18 -continue Rocephin 2 g IV every 24 hours until August 03 per ID, Dr. Saravia -pain control and bowel regimen - Blood Culture on 07/26: no growth x 5 days, follow culture results -Patient need culture pending, follow results DM type II, [id number], uncontrolled -On gabapentin -Accu checks AC and HS with Insulin Sliding Scale -Blood sugar elevated increase dose of Levemir - glipizide on hold Coronary artery disease History of CABG -No CP or SOB Continue home Coreg -Continue home Lipitor, and aspirin CKD stage II lisinopril -avoid nephrotoxins -follow renal indices DVT prophylaxis: heparin Code Status: full code Discussed Condition With: patient and nurse Discharge Planning: Plan for discharge to SNF when cleared with Surgeon
[2018-08-01] MEDS ORDERED: Insulin Detemir Inj 1,000 UNIT/10 ML Vial SQ SCH (21:00)
[2018-08-02] MEDS: oxyCODONE/Acetaminophen 10/325 Tablet PO PRN ×5 (03:25→21:57)
[2018-08-02] MEDS: Insulin NovoLOG Aspart Correctional Sugar Inj SQ SCH ×5 (03:26→20:25)
[2018-08-02] MEDS: Heparin - SQ 10,000 UNITS/ML Vial SQ SCH ×3 (06:10→21:57)
[2018-08-02 07:47] LABS: Hematocrit 31.2 % (39.0-51.0); Mean Corpuscular HGB Conc 32.2 % (32.0-36.0); Mean Corpuscular Volume 83.8 fL (80.0-100.0); Mean Platelet Volume 8.7 fL (7.0-11.0); Platelet Count 469 th/mm3 (150-450); Red Blood Count 3.72 mil/mm3 (4.50-5.90); Red Cell Distribution Width 16.6 % (11.6-17.2); White Blood Count 11.3 th/mm3 (4.0-11.0)
[2018-08-02] MEDS: Lisinopril 5 MG Tablet PO SCH (08:33)
[2018-08-02] MEDS: Gabapentin 400 MG Capsule PO SCH ×3 (08:33→17:02)
[2018-08-02] MEDS: Senna/Docusate Sodium 8.6/50 MG Tablet PO SCH ×2 (08:33→20:24)
--- NOTE | 2018-08-02 11:48 | P.PNVS ---
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 essentially of the left foot about 3 inches above the ankle Tissue planes were opened bluntly and irrigated and wound VAC was placed Patient will undergo bedside change of wound vacs and then hopefully by the end of next week will undergo second stage of the procedure which consists of higher below-knee amputation and closure Depending on how patient response to antibiotics may take a little longer to get there as well At this point nothing to add to care patient should remain on wound VAC that should be changed twice a week 07/26/2018 Patient is awake alert and oriented Wound VAC drainage is starting to clear up Awaiting tissue culture OR culture results ID help is greatly appreciated We will keep changing wound vacs at the bedside and patient will probably go by the end of the week for definitive second stage closure Can transfer to floor anytime 07/27/2018 Patient is hemodynamically stable Below-knee amputation site is clean there is no more crepitus in the tissues of the leg and gas gangrene is controlled Cultures positive for Staphylococcus aureus Morganella morganii and Enterococcus faecalis By the end of the week will take patient to the OR for a second stage BKA and closure In the meantime orders for the wound VAC change have been given 07/28/2018 Patient remains hemodynamically stable Appears to be soft nonedematous and there is no more crepitus Drainage from the wound VAC is serosanguineous and clearing up Will probably take to the operating room Friday to close the stump 07/29/2018 Left BKA stump is clean and there is no gas in tissues Continue wound VAC for another few days and will take patient Friday for second stage closure of the BKA stump 07/30/2018 Patient for closure of left BKA stump and second stage procedure tomorrow 08/02/2018 Patient is status post second stage below-knee amputation Dressing intact and dry. Original dressing removed Stump is clean and dry healing well no ischemic areas no drainage Redressed lightly daily Stitches will remain in place for about total of 3 weeks Patient can be discharged to rehab from my point any time Objective Vital Signs / I&O: Vital Signs 08/01/18 12:00 08/01/18 16:00 08/01/18 20:00 Temperature 98.4 F 98.3 F 98.7 F Pulse Rate 100 H 100 H 100 H Respiratory Rate 17 17 20 Blood Pressure 125/60 134/70 116/57 L Pulse Oximetry 93 L 93 L 94 L 08/01/18 20:32 08/02/18 00:00 08/02/18 08:00 Temperature 98.3 F 98.2 F Pulse Rate 91 H 83 Respiratory Rate 18 18 Blood Pressure 106/63 140/80 Pulse Oximetry 93 L 94 L 92 L Intake & Output 08/01/18 08/02/18 08/02/18 18:59 06:59 18:59 Intake Total 1500 / 1500 480 / 480 Output Total 850 / 850 1450 / 1450 Balance 650 / 650 -970 / -970 Weight 79.7 kg Intake: IV 100 / 100 Rocephin Inj 2,000 MG In NS Inj 100 / 100 100 ML @ 200 mls/hr IV.SIG Q24H [facility] Rx#:[id number] Oral 1400 / 1400 480 / 480 Output: Urine 850 / 850 1450 / 1450 Other: # Voids 3 Date of Last Bowel Movement 07/29/18 # Bowel Movements 0 0 Laboratory Results - last 24 hr 08/01/18 08/01/18 08/01/18 11:26 16:59 20:03 WBC RBC Hgb Hct MCV MCH MCHC RDW Plt Count MPV POC Glucose 244 H 234 H 339 H 08/02/18 08/02/18 08/02/18 03:25 05:33 07:09 WBC 11.3 H RBC 3.72 L Hgb 10.0 L Hct 31.2 L MCV 83.8 MCH 27.0 MCHC 32.2 RDW 16.6 Plt Count 469 H MPV 8.7 POC Glucose 163 H 190 H 08/02/18 11:20 WBC RBC Hgb Hct MCV MCH MCHC RDW Plt Count MPV POC Glucose 263 H Microbiology 07/31/18 13:35 Gram Stain - Final Tissue - Knee Wound Culture - Preliminary No growth in 48 hours
[2018-08-02] MEDS ORDERED: Morphine Inj 4 MG/ML Vial IM PRN (12:00)
[2018-08-02] MEDS: Morphine Inj 4 MG/ML Vial IV.PUSH PRN ×2 (12:16→16:57)
--- NOTE | 2018-08-02 15:57 | P.PNIM ---
Subjective Interval history: Follow up visit for left foot infection, osteomyelitis, cellulitis, s/p left second stage of [id number] amputation and closure of stump, DM 2, CAD and CKD Patient seen and examined in the bed, states that pain is better controlled this time. Denies any headache or dizziness, denies any abdominal pain, nausea , vomiting, diarrhea or constipation. Discussed discharge planning, stated plan to discharge to SNF/rehab close to their home in [place]. Discussed with nursing Nurse reported uncontrolled pain. Physical Exam Vital signs: Last Vital Signs Temp 98.2 F 08/02/18 12:00 Pulse 89 08/02/18 12:00 Resp 17 08/02/18 12:00 BP 129/67 08/02/18 12:00 Pulse Ox 94 L 08/02/18 12:00 Intake & Output 07/31/18 08/01/18 08/02/18 08/03/18 06:59 06:59 06:59 06:59 Intake Total 100 / 100 300 / 300 1979 / 1979 100 / 100 Output Total 575 / 575 375 / 375 2300 / 2300 Balance -475 / -475 -75 / -75 -320 / -320 100 / 100 Weight 82.8 kg 81.4 kg 79.7 kg Narrative: GENERAL: well developed, well nourished male in no acute distress SKIN: Warm and dry. HEAD: Atraumatic. Normocephalic. EYES: Pupils equal and round. No scleral icterus. No injection or drainage. ENT: No nasal bleeding or discharge. Mucous membranes pink and moist. NECK: Trachea midline. No JVD. CARDIOVASCULAR: Regular rate and rhythm. RESPIRATORY: No accessory muscle use. Clear to auscultation. Breath sounds equal bilaterally. GASTROINTESTINAL: Abdomen soft, non-tender, nondistended. Hepatic and splenic margins not palpable. MUSCULOSKELETAL: Extremities without clubbing, cyanosis. Left BKA stump dressed and with Chelsea no drainage noted around it dressing no redness around the site. Moving left lower extremity, able to lift up and down. NEUROLOGICAL: Awake and alert and oriented x 3. Generalized weakness, moving all 4 extremities. Normal speech. PSYCHIATRIC: Appropriate mood and affect; insight and judgment normal. Urinary Catheter Management Indwelling Temp Sensing Catheter: Cath placed during this visit: yes, but has since been removed by the nurse Urethral indwelling: Yes Insertion date: 07/24/18 Insertion time: 15:09 Removal date: 07/30/18 Removal time: 11:10 Results Labs CBC & Chem 7: 08/02/18 05:33 07/29/18 04:32 Labs: Microbiology 07/31/18 13:35 Tissue - Knee Gram Stain - Final 07/31/18 13:35 Tissue - Knee Wound Culture - Preliminary No growth in 48 hours Assessment and Plan Plan This is a 77-year-old gentleman previously noted to have a Charcot foot secondary to diabetes mellitus with wound care being performed at home, now presents with gangrene left foot with extensive osteomyelitis and diffuse cellulitis and septic shock. Patient initially requiring vasopressor support, norepinephrine. s/p emergent surgery-left BKA with vascular surgeon Dr. Mayo on 07/24. Sepsis element resolved History of septic shock Left foot infection involving gangrene, osteomyelitis and cellulitis Wound cultures growing MSSA, Morganella, Doyle Status post second stage below the knee amputation -s/p left BKA on 07/24/18 -Stump closure on 07/31/18 -continue Rocephin 2 g IV every 24 hours until August 03 per ID, Dr. Saravia -pain control and bowel regimen - Blood Culture on 07/26: no growth x 5 days, follow culture results -Patient need culture pending, follow results -Incision care: Redressed lightly daily. Stitches will remain in place for about total of 3 weeks -Patient can be discharged to rehab from per Vascular Surgery Team DM type II, [id number], uncontrolled -On gabapentin -Accu checks AC and HS with Insulin Sliding Scale -Blood sugar elevated increase dose of Levemir - restart glipizide Coronary artery disease History of CABG -No CP or SOB Continue home Coreg -Continue home Lipitor, and aspirin CKD stage II lisinopril -avoid nephrotoxins -follow renal indices DVT prophylaxis: heparin Discharge Planning: Plan for discharge to SNF in am when placement available and cleared with ID
[2018-08-02] MEDS ORDERED: Insulin Detemir Inj 1,000 UNIT/10 ML Vial SQ SCH (21:00)
[2018-08-03] MEDS: Insulin NovoLOG Aspart Correctional Sugar Inj SQ SCH ×4 (03:05→17:56)
[2018-08-03] MEDS: oxyCODONE/Acetaminophen 10/325 Tablet PO PRN ×2 (05:37→14:38)
[2018-08-03] MEDS: Heparin - SQ 10,000 UNITS/ML Vial SQ SCH ×2 (05:37→14:32)
[2018-08-03] MEDS: Lisinopril 5 MG Tablet PO SCH (08:05)
[2018-08-03] MEDS: Senna/Docusate Sodium 8.6/50 MG Tablet PO SCH (08:05)
[2018-08-03] MEDS: Gabapentin 400 MG Capsule PO SCH ×3 (08:05→17:56)
[2018-08-03] MEDS: glipiZIDE 10 MG Tablet PO SCH (09:29)
--- NOTE | 2018-08-03 09:58 | P.DS ---
DS: Providers Date of admission: 07/24/18 15:34 Primary care physician: Olayinka Perdomo MD Consults: 07/24/18 19:11 Consult to Vascular Surgery Stat Consulting Provider: Sal Mayo For STAT consult, spoke directly to:: Dr. Mayo Reason for Consultation: Gangrene left lower extremity, stents of osteomyelitis/cellulitis Notified:: Physician Spoke with:: juan j Date Notified:: 07/24/18 Time Notified:: 20:39 Ordering Provider: LUIGI 07/24/18 19:12 Consult to Infectious Diseases Routine Consulting Provider: Cristhian Saravia Linking Machine Operator:: Cristhian Saravia Reason for Consultation: Left lower extremity gangrene status post left BKA Notified:: Service Spoke with:: stepan Date Notified:: 07/24/18 Time Notified:: 20:43 Ordering Provider: LUIGI 07/25/18 14:08 Consult to Hospitalist Routine Consulting Provider: Juvenal Enriquez Reason for Consultation: Consult and transfer to hospitalist service for medical management. Critical care will be signing off, please reconsult if needed Notified:: Service Spoke with:: Bettie Date Notified:: 07/25/18 Time Notified:: 14:14 Ordering Provider: ANJUM Anticipated date of discharge: 08/03/18 Brief History from admission: This is a 77-year-old male that presented to the ED after an appointment with his pole frame construction worker with complaints erythematous left lower extremity with continued swelling and malodorous wound. The patient had previously been seen by the pole frame construction worker and wound care was being performed at home daily with a home health nurse applying a wound VAC. Upon presentation to the pole frame construction worker office he was noted eschar on the lateral portion of the foot and noted erythema, foul odor upon presentation to the doctor's office. The patient was immediately sent to the ED with recommendations to consult the on-call pole frame construction worker and vascular surgery. Upon presentation the patient was noted to be hypotensive and septic shock, a left subclavian triple-lumen was placed by the ED physician Dr. Davis and the patient was immediately placed on norepinephrine after receiving 2 L of normal saline IVF, and antibiotics vancomycin and Zosyn. Blood cultures and wound cultures were obtained urine culture suggestive of urosepsis .the patient's past medical history is significant for hypertension, diabetes mellitus, coronary artery disease status post CABG . Critical care medicine was consulted for management. Upon my observation and presentation to the ED the patient was noted to be mildly hypotensive continuing on norepinephrine infusion. Left lower extremity was extremely erythematous, edematous and noted gangrene extending up to mid calf. Immediate bedside consult to vascular surgery, Dr. Mayo. Plan for immediate surgery, as discussed with family. Patient update on day of discharge: Follow up visit and discharge planning to SNF, for left foot infection, osteomyelitis, cellulitis, s/p left second stage of [id number] amputation and closure of stump, DM 2, CAD and CKD. Patient seen and examined laying in bed, eating breakfast, states that the pain is much better controlled. Patient denies any pain at this time, stated feeling comfortable. She states that sleep well last night, eating good breakfast. Sleep and follow good had a good bowel movement yesterday. Patient denies any headache or dizziness, denies any chest pain or shortness of breath, denies any abdominal pain, nausea, vomiting, diarrhea or constipation. Patient denies any fever or chills. Charge planning discussed with nurse and social science instructor. DS: Summary This is a 77-year-old gentleman previously noted to have a Charcot foot secondary to diabetes mellitus with wound care being performed at home, now presents with gangrene left foot with extensive osteomyelitis and diffuse cellulitis and septic shock. Patient initially requiring vasopressor support, norepinephrine. s/p emergent surgery-left BKA with vascular surgeon Dr. Mayo on 07/24. Sepsis element resolved. Pt was admitted for septic shock , Left foot infection involving gangrene, osteomyelitis and cellulitis. Wound cultures growing MSSA, Morganella, Doyle. Status post second stage below the knee amputation, s/p left BKA on 07/24/18, Stump closure on 07/31/18. Pt was treated with IV antibiotic Rocephin 2 g IV every 24 hours until August 03 per ID, Dr. Saravia. Blood Culture on 07/26: no growth x 5 days, final result. Incision care: Redressed lightly daily. Stitches will remain in place for about total of 3 weeks. Patient can be discharged to rehab from per Vascular Surgery Team Patient was also managed for past medical history DM type II, non-insulin- dependent, uncontrolled, On gabapentin, Accu checks AC and HS with Insulin Sliding Scale, Blood sugar elevated increase dose of Levemir and restarted glipizide. Hx of Coronary artery disease with CABG, No CP or SOB, Continued home Coreg, Lipitor, and aspirin. Hx of CKD stage II, on lisinopril and avoid nephrotoxins Time Spent with Patient Total time spent providing and/or coordinating discharge services: Exam Narrative Exam Narrative: GENERAL: Well-developed, well-nourished, male in no acute distress SKIN: Warm and dry. HEAD: Atraumatic. Normocephalic. EYES: Pupils equal and round. No scleral icterus. No injection or drainage. ENT: No nasal bleeding or discharge. Mucous membranes pink and moist. NECK: Trachea midline. No JVD. CARDIOVASCULAR: Regular rate and rhythm. RESPIRATORY: No accessory muscle use. Clear to auscultation. Breath sounds equal bilaterally. GASTROINTESTINAL: Abdomen soft, non-tender, nondistended. Hepatic and splenic margins not palpable. MUSCULOSKELETAL: Extremities without clubbing, cyanosis. Left BKA stump, incisions intact, slight sanguinous drainage noted, no erythema or edema noted, dressed and with [place] Moving left lower extremity, able to lift up and down. NEUROLOGICAL: Awake and alert. No obvious cranial nerve deficits. Motor grossly within normal limits. Five out of 5 muscle strength in the arms and legs , escept left lower extremity. Normal speech. PSYCHIATRIC: Appropriate mood and affect; insight and judgment normal. Results Completed studies during hospitalization: Pending at discharge 07/24/18 08:56 Surgical [PTH] Routine Pending studies at discharge: Pending at discharge 07/31/18 15:03 Surgical [PTH] Routine Labs on day of discharge: Labs from last 24 hours 08/03/18 08/03/18 08/02/18 07:25 01:32 19:23 POC Glucose 187 H 138 H 263 H 08/02/18 08/02/18 17:01 11:20 POC Glucose 259 H 263 H Impressions ITS Impressions Chest X-Ray 07/24/18 13:35 CONCLUSION: Mild interstitial edema Parenchymal changes left base that could be inflammatory Foot CT 07/24/18 13:35 CONCLUSION: 1. Extensive erosive changes involving the bases of the second, third, fourth and fifth metatarsals as well as the cuboid bone in the cuneiforms. Erosive changes are also noted involving the head of the right second metatarsal. Erosive changes are also noted involving the anterior and mid portions of the talus and the anterior aspect of the calcaneus. There is a also erosive change involving the anterior aspect of the distal tibia adjacent to the tibiotalar joint. Fluid and air are noted throughout the midfoot and extending proximally into the anterior ankle system with extensive cellulitis and deep soft tissue abscess. The largest of subcutaneous abscess is noted along the dorsal aspect of the proximal foot laterally and measures 4.3 cm. The findings are consistent with extensive osteomyelitis as well as diffuse cellulitis and deep soft tissue abscess collections. Discharge Plan Discharge Disposition Patient Disposition: Discharge to SNF Discharge Condition Condition: Stable Discharge Order Discharge Orders: Discharge Order (Routine); Ordered 08/03/18 Ordered By: Darlin Hinton General Surgery Clear for Discharge (Routine); Ordered 08/03/18 Ordered By: Darlin Hinton Discharge Details Anticipated Discharge Date: 08/03/18 Discharge Comment: DC to SNF after the last dose of antibiotic Diagnosis: Charcot foot due to diabetes mellitus, Acute renal failure, Transaminitis, Sepsis, Cellulitis and abscess of foot, Osteomyelitis Physicians Team ED Provider: Collins Davis ED Midlevel Provider: Crystal Montiel Primary Care Provider: Olayinka Perdomo Attending Provider: Patric Enriquez Other Providers: Sal Mayo ; Cristhian Saravia Rxs /Orders / Referrals /Forms Prescriptions: New aspirin 81 mg Tablet,Delayed Release (Dr/Ec) 81 mg PO DAILY Qty: 30 RF: 0 oxycodone-acetaminophen 10-325 mg Tablet 1 tab PO Q4H PRN (Reason: PAIN 2-6) Qty: 14 RF: 0 insulin detemir U-100 [Levemir U-100 Insulin] 100 unit/mL Solution 14 unit subcut HS 30 Days Qty: 4.2 RF: 0 insulin aspart U-100 [Novolog U-100 Insulin aspart] 100 unit/mL Solution 1 unit subcut ACHS AND 3AM PRN (Reason: hyperglycemia) 30 Days Qty: 10 RF: 0 Continue carvedilol [Coreg] 12.5 mg Tablet 12.5 mg PO BID RF: 0 amitriptyline 150 mg Tablet 150 mg PO DAILY RF: 0 glipizide 10 mg Tablet 10 mg PO BID RF: 0 gabapentin 800 mg Tablet 800 mg PO TID RF: 0 ferrous sulfate 325 mg (65 mg iron) Tablet 325 mg PO DAILY RF: 0 metformin 1,000 mg Tablet 1,000 mg PO BID RF: 0 simvastatin [Zocor] 40 mg Tablet 40 mg PO QPM RF: 0 No Action metformin 500 mg Tablet 500 mg PO AC LUNCH RF: 0 Referrals: Olayinka Perdomo MD [Primary Care Provider] - See Instructions Sal Mayo MD [Physician] - See Instructions (Follow-up in 2- 3 weeks) Discharge Instructions Additional Instructions: [facility] Prescription Drug Monitoring Database has been queried and verified prior to prescribing the controlled substance. Acute pain exception. This patient has normal, predicted, physiological, and time limited response to an adverse mechanical stimulus associated with surgery, trauma, or acute illness as described in my notes. There is a lack of alternative treatment options other than to include the prescribed narcotic treatment for this condition. Discharge Interventions Interventions: Discharge Planning - Case Management Last Done: 08/03/18 08:37 Status ED Status: Left Department
[2018-08-03 10:08] LABS: Baso # (Auto) 0.1 th/mm3 (0.0-0.2); Baso % (Auto) 0.5 % (0.0-2.0); Eos # (Auto) 0.4 th/mm3 (0.0-0.4); Eos % (Auto) 2.8 % (0.0-4.0); Hematocrit 32.6 % (39.0-51.0); Hemoglobin 10.5 gm/dL (13.0-17.0); Lymph # (Auto) 1.8 th/mm3 (1.0-4.8); Mean Corpuscular HGB Conc 32.2 % (32.0-36.0); Mean Corpuscular Hemoglobin 27.2 pg (27.0-34.0); Mean Corpuscular Volume 84.4 fL (80.0-100.0); Mean Platelet Volume 8.7 fL (7.0-11.0); Mono # (Auto) 0.9 th/mm3 (0.0-0.9); Mono % (Auto) 7.5 % (0.0-8.0); Neut # (Auto) 9.5 th/mm3 (1.8-7.7); Neut % (Auto) 75.2 % (16.0-70.0); Platelet Count 501 th/mm3 (150-450); Red Blood Count 3.86 mil/mm3 (4.50-5.90); Red Cell Distribution Width 16.7 % (11.6-17.2); White Blood Count 12.6 th/mm3 (4.0-11.0)
[2018-08-03 10:38] LABS: Albumin 2.5 g/dL (3.4-5.0); Anion Gap 7 meq/L (5-15); Aspartate Aminotransferase 29 U/L (15-37); Blood Urea Nitrogen 14 mg/dL (7-18); Calcium 8.7 mg/dL (8.5-10.1); Carbon Dioxide 30.1 meq/L (21.0-32.0); Chloride 98 meq/L (98-107); Glomerular Filtration Rate 73 mL/min (>89); Glucose,Random 178 mg/dL (74-106); Potassium 4.6 meq/L (3.5-5.1); Sodium 135 meq/L (136-145)
[2018-08-03 10:40] LABS: Alanine Aminotransferase 43 U/L (12-78); Alkaline Phosphatase 153 U/L (45-117); Total Protein 8.4 g/dL (6.4-8.2)
--- NOTE | 2018-08-03 13:47 | P.PNVS ---
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 essentially of the left foot about 3 inches above the ankle Tissue planes were opened bluntly and irrigated and wound VAC was placed Patient will undergo bedside change of wound vacs and then hopefully by the end of next week will undergo second stage of the procedure which consists of higher below-knee amputation and closure Depending on how patient response to antibiotics may take a little longer to get there as well At this point nothing to add to care patient should remain on wound VAC that should be changed twice a week 07/26/2018 Patient is awake alert and oriented Wound VAC drainage is starting to clear up Awaiting tissue culture OR culture results ID help is greatly appreciated We will keep changing wound vacs at the bedside and patient will probably go by the end of the week for definitive second stage closure Can transfer to floor anytime 07/27/2018 Patient is hemodynamically stable Below-knee amputation site is clean there is no more crepitus in the tissues of the leg and gas gangrene is controlled Cultures positive for Staphylococcus aureus Morganella morganii and Enterococcus faecalis By the end of the week will take patient to the OR for a second stage BKA and closure In the meantime orders for the wound VAC change have been given 07/28/2018 Patient remains hemodynamically stable Appears to be soft nonedematous and there is no more crepitus Drainage from the wound VAC is serosanguineous and clearing up Will probably take to the operating room Friday to close the stump 07/29/2018 Left BKA stump is clean and there is no gas in tissues Continue wound VAC for another few days and will take patient Friday for second stage closure of the BKA stump 07/30/2018 Patient for closure of left BKA stump and second stage procedure tomorrow 08/02/2018 Patient is status post second stage below-knee amputation Dressing intact and dry. Original dressing removed Stump is clean and dry healing well no ischemic areas no drainage Redressed lightly daily Stitches will remain in place for about total of 3 weeks Patient can be discharged to rehab from my point any time 08/03/2018 BKA stump incision is clean and dry No signs of infection Nothing to add to care at this time Objective Vital Signs / I&O: Vital Signs 08/02/18 16:00 08/02/18 20:00 08/03/18 00:00 Temperature 98.3 F 98.4 F 97.7 F Pulse Rate 78 90 86 Respiratory Rate 17 18 19 Blood Pressure 124/74 120/59 L 123/67 Pulse Oximetry 93 L 96 94 L 08/03/18 08:00 08/03/18 12:00 Temperature 97.6 F 97.6 F Pulse Rate 87 105 H Respiratory Rate 18 17 Blood Pressure 113/73 117/58 L Pulse Oximetry 92 L 92 L Intake & Output 08/02/18 08/03/18 08/03/18 18:59 06:59 18:59 Intake Total 1500 / 1500 480 / 480 100 / 100 Output Total 800 / 800 1050 / 1050 Balance 700 / 700 -570 / -570 100 / 100 Weight 79.6 kg Intake: IV 100 / 100 100 / 100 Rocephin Inj 2,000 MG In NS Inj 100 / 100 100 / 100 100 ML @ 200 mls/hr IV.SIG Q24H BRIGITTE Rx#:[id number] Oral 1400 / 1400 480 / 480 Output: Urine 800 / 800 1050 / 1050 Other: # Bowel Movements 0 Laboratory Results - last 24 hr 08/02/18 08/02/18 08/03/18 17:01 19:23 01:32 WBC RBC Hgb Hct MCV MCH MCHC RDW Plt Count MPV Neut % (Auto) Lymph % (Auto) [place] % (Auto) Eos % (Auto) Baso % (Auto) Neut # (Auto) Lymph # (Auto) [place] # (Auto) Eos # (Auto) Baso # (Auto) WBC Differential Differential Comment Sodium Potassium Chloride Carbon Dioxide Anion Gap BUN Creatinine Estimated GFR POC Glucose 259 H 263 H 138 H Random Glucose Calcium Total Bilirubin AST ALT Alkaline Phosphatase Total Protein Albumin 08/03/18 08/03/18 08/03/18 07:25 09:19 09:19 WBC 12.6 H RBC 3.86 L Hgb 10.5 L Hct 32.6 L MCV 84.4 MCH 27.2 MCHC 32.2 RDW 16.7 Plt Count 501 H MPV 8.7 Neut % (Auto) 75.2 H Lymph % (Auto) 14.0 [place] % (Auto) 7.5 Eos % (Auto) 2.8 Baso % (Auto) 0.5 Neut # (Auto) 9.5 H Lymph # (Auto) 1.8 [place] # (Auto) 0.9 Eos # (Auto) 0.4 Baso # (Auto) 0.1 WBC Differential . Differential Comment Auto diff final Sodium 135 L Potassium 4.6 Chloride 98 Carbon Dioxide 30.1 Anion Gap 7 BUN 14 Creatinine 1.00 Estimated GFR 73 L POC Glucose 187 H Random Glucose 178 H Calcium 8.7 Total Bilirubin 0.4 AST 29 ALT 43 Alkaline Phosphatase 153 H Total Protein 8.4 H D Albumin 2.5 L 08/03/18 12:17 WBC RBC Hgb Hct MCV MCH MCHC RDW Plt Count MPV Neut % (Auto) Lymph % (Auto) [place] % (Auto) Eos % (Auto) Baso % (Auto) Neut # (Auto) Lymph # (Auto) [place] # (Auto) Eos # (Auto) Baso # (Auto) WBC Differential Differential Comment Sodium Potassium Chloride Carbon Dioxide Anion Gap BUN Creatinine Estimated GFR POC Glucose 209 H Random Glucose Calcium Total Bilirubin AST ALT Alkaline Phosphatase Total Protein Albumin Microbiology 07/31/18 13:35 Gram Stain - Final Tissue - Knee Wound Culture - Final No growth in 72 hours (aerobically and anaerobically)
--- NOTE | 2018-08-03 16:18 | P.DS ---
DS: Providers Date of admission: 07/24/18 15:34 Primary care physician: Olayinka Perdomo MD Consults: 07/24/18 19:11 Consult to Vascular Surgery Stat Consulting Provider: Sal Mayo For STAT consult, spoke directly to:: Dr. Mayo Reason for Consultation: Gangrene left lower extremity, stents of osteomyelitis/cellulitis Notified:: Physician Spoke with:: juan j Date Notified:: 07/24/18 Time Notified:: 20:39 Ordering Provider: LUIGI 07/24/18 19:12 Consult to Infectious Diseases Routine Consulting Provider: Cristhian Saravia Tanning Solution Maker:: Cristhian Saravia Reason for Consultation: Left lower extremity gangrene status post left BKA Notified:: Service Spoke with:: stepan Date Notified:: 07/24/18 Time Notified:: 20:43 Ordering Provider: LUIGI 07/25/18 14:08 Consult to Hospitalist Routine Consulting Provider: Juvenal Enriquez Reason for Consultation: Consult and transfer to hospitalist service for medical management. Critical care will be signing off, please reconsult if needed Notified:: Service Spoke with:: Bettie Date Notified:: 07/25/18 Time Notified:: 14:14 Ordering Provider: ANJUM Anticipated date of discharge: 08/03/18 Brief History from admission: This is a 77-year-old male that presented to the ED after an appointment with his steam fitter supervisor maintenance with complaints erythematous left lower extremity with continued swelling and malodorous wound. The patient had previously been seen by the steam fitter supervisor maintenance and wound care was being performed at home daily with a home health nurse applying a wound VAC. Upon presentation to the steam fitter supervisor maintenance office he was noted eschar on the lateral portion of the foot and noted erythema, foul odor upon presentation to the doctor's office. The patient was immediately sent to the ED with recommendations to consult the on-call steam fitter supervisor maintenance and vascular surgery. Upon presentation the patient was noted to be hypotensive and septic shock, a left subclavian triple-lumen was placed by the ED physician Dr. Davis and the patient was immediately placed on norepinephrine after receiving 2 L of normal saline IVF, and antibiotics vancomycin and Zosyn. Blood cultures and wound cultures were obtained urine culture suggestive of urosepsis .the patient's past medical history is significant for hypertension, diabetes mellitus, coronary artery disease status post CABG . Critical care medicine was consulted for management. Upon my observation and presentation to the ED the patient was noted to be mildly hypotensive continuing on norepinephrine infusion. Left lower extremity was extremely erythematous, edematous and noted gangrene extending up to mid calf. Immediate bedside consult to vascular surgery, Dr. Mayo. Plan for immediate surgery, as discussed with family. Patient update on day of discharge: Follow up visit for left foot infection, osteomyelitis, cellulitis, s/p left second stage of [id number] amputation and closure of stump, DM 2, CAD and CKD Patient seen and examined sitting on bed, eating breakfast, stated pain is better controlled this time. Patient denies any pain or discomfort at this time. Patient denies any headache or dizziness, denies any abdominal pain, nausea, vomiting, diarrhea or constipation. Patient stated had a bowel movement yesterday. Discharge planning discussed with patient, nurse, and health and social care teacher to care home facility. DS: Summary This is a 77-year-old gentleman previously noted to have a Charcot foot secondary to diabetes mellitus with wound care being performed at home, now presents with gangrene left foot with extensive osteomyelitis and diffuse cellulitis and septic shock. Patient initially requiring vasopressor support, norepinephrine. s/p emergent surgery-left BKA with vascular surgeon Dr. Mayo on 07/24. Sepsis element resolved. Left foot infection involving gangrene, osteomyelitis and cellulitis, Wound cultures growing MSSA, Morganella , Doyle, Status post second stage below the knee amputation, left BKA on 07/24/18 , Stump closure on 07/31/18. S/P antibiotic treatment with Rocephin 2 g IV every 24 hours until August 03 per ID, Dr. Saravia. Blood Culture on 07/26: no growth x 5 days. Incision care: Redressed lightly daily. Stitches will remain in place for about total of 3 weeks. Patient can be discharged to rehab from per Vascular Surgery Team Patient also managed for past medical history of DM type II, non-insulin- dependent, uncontrolled, coronary artery artery disease with history of CABG, CKD stage II. Patient stable at this time continue home medications, gabapentin , glipizide, metformin, Coreg, Lipitor, aspirin, lisinopril. Time Spent with Patient Total time spent providing and/or coordinating discharge services: Exam Narrative Exam Narrative: GENERAL: well developed, well nourished male in no acute distress SKIN: Warm and dry. HEAD: Atraumatic. Normocephalic. EYES: Pupils equal and round. No scleral icterus. No injection or drainage. ENT: No nasal bleeding or discharge. Mucous membranes pink and moist. NECK: Trachea midline. No JVD. CARDIOVASCULAR: Regular rate and rhythm. RESPIRATORY: No accessory muscle use. Clear to auscultation. Breath sounds equal bilaterally. GASTROINTESTINAL: Abdomen soft, non-tender, nondistended. Hepatic and splenic margins not palpable. MUSCULOSKELETAL: Extremities without clubbing, cyanosis. Left BKA stump dressed and with Chelsea no drainage noted around it dressing no redness around the site. Moving left lower extremity, able to lift up and down. NEUROLOGICAL: Awake and alert and oriented x 3. Generalized weakness, moving all 4 extremities. Normal speech. PSYCHIATRIC: Appropriate mood and affect; insight and judgment normal. Results Completed studies during hospitalization: Pending at discharge 07/24/18 08:56 Surgical [PTH] Routine Pending studies at discharge: Pending at discharge 07/31/18 15:03 Surgical [PTH] Routine Labs on day of discharge: Labs from last 24 hours 08/03/18 08/03/18 08/02/18 07:25 01:32 19:23 POC Glucose 187 H 138 H 263 H 08/02/18 08/02/18 17:01 11:20 POC Glucose 259 H 263 H Impressions ITS Impressions Chest X-Ray 07/24/18 13:35 CONCLUSION: Mild interstitial edema Parenchymal changes left base that could be inflammatory Foot CT 07/24/18 13:35 CONCLUSION: 1. Extensive erosive changes involving the bases of the second, third, fourth and fifth metatarsals as well as the cuboid bone in the cuneiforms. Erosive changes are also noted involving the head of the right second metatarsal. Erosive changes are also noted involving the anterior and mid portions of the talus and the anterior aspect of the calcaneus. There is a also erosive change involving the anterior aspect of the distal tibia adjacent to the tibiotalar joint. Fluid and air are noted throughout the midfoot and extending proximally into the anterior ankle system with extensive cellulitis and deep soft tissue abscess. The largest of subcutaneous abscess is noted along the dorsal aspect of the proximal foot laterally and measures 4.3 cm. The findings are consistent with extensive osteomyelitis as well as diffuse cellulitis and deep soft tissue abscess collections. Discharge Plan Discharge Disposition Patient Disposition: 03 Discharge to SNF Discharge Condition Condition: Stable Discharge Order Discharge Orders: Discharge Order (Routine); Ordered 08/03/18 Ordered By: Darlin Hinton General Surgery Clear for Discharge (Routine); Ordered 08/03/18 Ordered By: Darlin Hinton Discharge Details Anticipated Discharge Date: 08/03/18 Discharge Comment: DC to SNF after the last dose of antibiotic Physicians Team ED Provider: Collins Davis ED Midlevel Provider: Crystal Montiel Primary Care Provider: Olayinka Perdomo Attending Provider: Patric Enriquez Other Providers: Sal Mayo ; Cristhian Saravia Rxs /Orders / Referrals /Forms Prescriptions: New aspirin 81 mg Tablet,Delayed Release (Dr/Ec) 81 mg PO DAILY Qty: 30 RF: 0 oxycodone-acetaminophen 10-325 mg Tablet 1 tab PO Q4H PRN (Reason: PAIN 2-6) Qty: 14 RF: 0 insulin detemir U-100 [Levemir U-100 Insulin] 100 unit/mL Solution 14 unit subcut HS 30 Days Qty: 4.2 RF: 0 insulin aspart U-100 [Novolog U-100 Insulin aspart] 100 unit/mL Solution 1 unit subcut ACHS AND 3AM PRN (Reason: hyperglycemia) 30 Days Qty: 10 RF: 0 Continue carvedilol [Coreg] 12.5 mg Tablet 12.5 mg PO BID RF: 0 amitriptyline 150 mg Tablet 150 mg PO DAILY RF: 0 glipizide 10 mg Tablet 10 mg PO BID RF: 0 gabapentin 800 mg Tablet 800 mg PO TID RF: 0 ferrous sulfate 325 mg (65 mg iron) Tablet 325 mg PO DAILY RF: 0 metformin 1,000 mg Tablet 1,000 mg PO BID RF: 0 simvastatin [Zocor] 40 mg Tablet 40 mg PO QPM RF: 0 Discontinued metformin 500 mg Tablet 500 mg PO AC LUNCH RF: 0 Referrals: Olayinka Perdomo MD [Primary Care Provider] - See Instructions Sal Mayo MD [Physician] - See Instructions (Follow-up in 2- 3 weeks) Discharge Instructions Additional Instructions: [employer] Prescription Drug Monitoring Database has been queried and verified prior to prescribing the controlled substance. Acute pain exception. This patient has normal, predicted, physiological, and time limited response to an adverse mechanical stimulus associated with surgery, trauma, or acute illness as described in my notes. There is a lack of alternative treatment options other than to include the prescribed narcotic treatment for this condition. Status ED Status: Left Department
[2018-08-03 17:32] VITALS: BP 102/56; PULSE 90; RESP 18; TEMP 97.7; O2SAT 93
== END 2018-08-03 18:46 | DRG 853 ==
LOC: NEPE 13:11 → NEDA 15:34 → N03 20:52 → N07 07-26 11:22
PROVIDERS: ADMIT Hospitalist; ATTEND Hospitalist
CPT/HCPCS: 36556; 36569; 51702; 51798; 71010; 71045; 73700; 76775; 80053; 80076; 80202; 81001; 82550; 82552; 82565; 82948; 82962; 83036; 83605; 83735; 84100; 84484; 84520; 85025; 85027; 85610; 85651; 85652; 85730; 86140; 86403; 86850; 86900; 86901; 86923; 87015; 87040; 87070; 87077; 87086; 87102; 87116; 87147; 87149; 87176; 87186; 87205; 87206; 87641; 88305; 88307; 88311; 90765; 90767; 93005; 94150; 96365; 96367; 97110; 97163; 97530; 99291; J0131; J0692; J0696; J1170; J1644; J1815; J2250; J2270; J2543; J3010; J3370; J7030; J7040; J7050; P9045